=== PATIENT | female | born 1955 ===

== ENCOUNTER 2018-03-22 12:07 | Inpatient (IN) | payer MEDICAID ==
[~2018-03-22] VITALS: Ht 177.8 cm; Wt 79.9 kg
[2018-03-22] MEDS ORDERED: CALCIUM CARBONATE 500 MG (TUMS) TAB.CHEW PO PRN (12:45)
[2018-03-22] MEDS ORDERED: ALPRAZolam 0.25 MG (XANAX) TAB PO PRN (12:45)
[2018-03-22] MEDS ORDERED: POLYETHYLENE GLYCOL 17 GM (MIRALAX) PACK PO PRN (12:45)
[2018-03-22] MEDS ORDERED: SENNA W/DOCUSATE (SENOKOT S) TABLET PO PRN (12:45)
[2018-03-22] MEDS ORDERED: LOPERAMIDE 2 MG (IMODIUM) CAP PO PRN (12:45)
[2018-03-22] MEDS ORDERED: HYDROcodone/APAP 5 MG/325 MG (LORTAB) TAB PO PRN (12:45)
[2018-03-22] MEDS ORDERED: BISACODYL 10 MG SUPP (DULCOLAX) PR PRN (12:45)
[2018-03-22] MEDS ORDERED: diphenhydrAMINE 25 MG TAB (BENADRYL) PO PRN (12:45)
[2018-03-22] MEDS ORDERED: PRAV40TA2 PO (13:00)
[2018-03-22] MEDS ORDERED: POTA-51 PO (13:00)
[2018-03-22] MEDS ORDERED: FENT1PAT57 TD (13:00)
[2018-03-22] MEDS ORDERED: INSU100I14 SQ (13:00)
[2018-03-22] MEDS ORDERED: TICA90TA PO (13:00)
[2018-03-22] MEDS ORDERED: CARV6.25 PO (13:00)
[2018-03-22] MEDS ORDERED: PANT40TA3 PO (13:00)
[2018-03-22] MEDS ORDERED: ASPI-983 PO (13:00)
[2018-03-22] MEDS ORDERED: FURO80TA3 PO (13:00)
[2018-03-22] MEDS ORDERED: INSU100I29 SQ (13:00)
[2018-03-22] MEDS ORDERED: HYDR-3816 PO (13:00)
[2018-03-22] MEDS ORDERED: HYDR-3820 PO (13:33)
--- NOTE | 2018-03-22 14:10 | NUR ---
Pt admitted to room 229 with an admitting diagnosis of falls. S/P Lt THR, from [facility], [place], via w/c van accompanied by regional tanker truck driver. ROSALINO HOSKINS introduced to surroundings, call light, bed controls, phone, TV, temperature control, lights, meal times, smoking policy, visitor policy, side rail policy, bathrooms and showers. Patient Rights given to patient in the handbook. ROSALINO HOSKINS verbalizes understanding that [facility] is not responsible for the loss or damage to any personal effects or valuables that are kept in the patients posession during their hospitalization. The following Patient Care Plans were discussed with the pt: Discharge Planning, Self Care Deficit, Impaired Mobility, Potential for fall/injury. ROSALINO HOSKINS verbalizes understanding of Interdisciplinary Patient Education. Patient and/or family were informed about the Rapid Response Team and its purpose. Patient received Patient Rights Booklet, which includes Privacy Act Statement and Data Collection Information Summary. PT in to room immediately upon admission to [facility] pt.
--- NOTE | 2018-03-22 14:56 | Physical Therapy Evaluation ---
PT Evaluation-General Medical Diagnosis Admission Date Mar 22, 2018 at 14:10 Medical Diagnosis: left hip fx; post THR Onset Date: Mar 22, 2018 Therapy Diagnosis Therapy Diagnosis: weakness; abn gait Precautions Precautions/Isolations: Standard Precautions Weight Bear Status Right Lower Extremity: Right Full Weight Bearing Left Lower Extremity: Left Weight Bearing/Tolerated Referral Physician: Michelle Reason for Referral: Evaluation/Treatment Medical History Pertinent Medical History: CAD, DM, Heart Failure, HTN Additional Medical History [place] x 06 January 2018; renal cell carcinoma Current History Pt was walking outdoors and she reports her leg broke and she fell. She reports it was incredibly painful. She was taken by ambulance to [facility] ED and was then transferred to [facility]. Her hip was repaired with a THR Reviewed History: Yes Social History Home: Single Level (mobile home.) Current Living Status: Spouse Entry Into Home: Stairs With Railing (reports her is building a ramp.) PT Steps Into Home: 3 Prior/Core FIM Prior Level of Function Therapy Code Descriptions/Definitions Functional [place] Measure: 0=Not Assessed/NA 4=Minimal Assistance 1=Total Assistance 5=Supervision or Setup 2=Maximal Assistance 6=Modified [place] 3=Moderate Assistance 7=Complete [place] Therapy Quality Codes: 6 Independent with activity with or without an assistive device 5 Patient requires set up or clean up by helper. Patient completes activity by themselves 4 Supervision or touching assist (CGA). [place] provide cues , steadying assist 3 The helper provides less than half the effort to complete the activity 2 The helper provides more than half the effort to complete the activity 1 Dependent. The helper does all the effort to complete an activity 7 Patient refused to complete or attempt activity 9 The patient did not perform the activity before the current illness or injury 88 Not attempted due to Medical conditions or safety concerns Functional Abilities and Goals: Independent: Patient completed the activities by him/herself, with or without an assistive device, with no assistance from a helper. Needed Some Help: Patient needed partial assistance from another person to complete activities. Dependent: A helper completed the activities for the patient. Unknown: Not Applicable: Bed Mobility: 7 Transfers (B,C,W/C) (FIM): 7 Gait: 7 Stairs: 7 Indoor Mobility (Ambulation): Independent Stairs: Independent Prior Devices Use: None Pt has a FWW, RW, shower chair. PT Evaluation-Current Subjective Agreeable to PT. Reports she is tired. Pain Numeric Pain Scale: 4 Location: Left Location Body Site: Hip Pain Description: Ache (sore) Pt/Family Goals Her goal is to return home at a mod indep level Objective Patient Orientation: Person, Place, Time, Situation Problem Solving: Good ROM/Strength ROM Lower Extremities WFL; left hip precautions Strenght Lower Extremities right LE is grossly 5/5; left LE strength is grossly 4/5 Integumentary/Posture Integumentary refer to nursing notes. Bowel Incontinence: No Bladder Incontinence: No Posture symmetrical and upright. Neuromuscular (Tone, Coordination, Reflexes) WFL Sensory Vision: Wears Glasses Hearing: Functional Sensation Right Lower Extremit: Intact Sensation Left Lower Extremity: Intact Transfers Therapy Code Descriptions/Definitions Functional [place] Measure: 0=Not Assessed/NA 4=Minimal Assistance 1=Total Assistance 5=Supervision or Setup 2=Maximal Assistance 6=Modified [place] 3=Moderate Assistance 7=Complete [place] Therapy Quality Codes: 6 Independent with activity with or without an assistive device 5 Patient requires set up or clean up by helper. Patient completes activity by themselves 4 Supervision or touching assist (CGA). [place] provide cues , steadying assist 3 The helper provides less than half the effort to complete the activity 2 The helper provides more than half the effort to complete the activity 1 Dependent. The helper does all the effort to complete an activity 7 Patient refused to complete or attempt activity 9 The patient did not perform the activity before the current illness or injury 88 Not attempted due to Medical conditions or safety concerns Transfers (B, C, W/C) (FIM): 3 Scootin Roll Left to Right (QC): 4 Supine to/from Sit: 3 (asssit with both legs to get into bed) Sit to/from Stand: 4 Sit to Lying (QC): 3 Lying to Sitting/Side of Bed(Q: 3 Sit to Stand (QC): 4 Chair/Bkk-wt-Gdknl Xfer(QC): 4 Car Transfer (QC): 4 skilled cues for sequencing and safety. Gait Does the Patient Walk?: Yes Mode of Locomotion: Walk Anticipated Mode of Locomotion: Walk Gait (FIM): 2 Distance (FIM): 6=635-04 ft Walk 10 feet (QC): 4 (CGA for safety) Walk 50 ft with 2 Turns(QC): 4 Walk 150 ft (QC): 88 Walking 10ft/uneven surface-QC: 4 Gait Assistive Device: FWW Comments/Gait Description Decreased speed and foot clearance. Wheelchair Training Does the Pt Use a Wheelchair?: No Stairs Stairs (FIM): 2 #of Steps: 1 Level of Assist: 4 1 Step (curb) (QC): 4 4 Steps (QC): 88 Assistive Device: Walker 12 Steps (QC): 88 skilled cues for sequencing and segmentation. Balance Sitting Static: Good Sitting Dynamic: Good Standing Static: Fair Standing Dynamic: Fair Picking up an Object (QC): 88 (HIP PRECAUTIONS) Treatment Worked on functional sit to stand transfers with correct hand placement and technique. Gait x 40 ft with fWW with CGA with cues for safety. Assessment/Needs Pt presents post femur fx that has been repaired with a THR. She has decreased functional strength that impairs transfers, gait and functional safety and balacne. Joseequires assist with all mobiliyt and is unable to care for herself at home. She is a good ARU candidate to address her deficits and allow her to return home at a mod indep level. Rehab Potential: Good PT Short Term Goals Short Term Goals Time Frame: Mar 29, 2018 Transfers (B,C,W/C) (FIM): 5 Gait (FIM): 5 Distance (FIM): 3=150 ft Gait Assistive Device: FWW Stairs (FIM): 2 # of Steps: 4 PT Fdc Goals Fdc Goals PT Fdc Goals Time Frame: Apr 06, 2018 Transfers (B,C,W/C) (FIM): 6 Sit to Lying (QC): 6 Lying-Sitting on Side/Bed(QC): 6 Sit to Stand (QC): 6 Roll Left to Right (QC): 6 Chair/Tmg-nl-Xjvcg Xfer(QC): 6 Car Transfer (QC): 6 Does the Patient Walk: Yes Gait (FIM): 6 Walk 10 feet (QC): 6 Walk 10ft-Uneven Surface(QC): 6 Walk 50ft with 2 Turns (QC): 6 Walk 150 ft (QC): 6 Gait Assistive Device: FWW Does the Pt use WC or Scooter?: No Stairs (FIM): 5 (household) # of Steps: 4 1 Step (curb) (QC): 6 4 Steps (QC): 6 12 Steps (QC): 88 Picking up an Object (QC): 88 PT Plan Problem List Problem List: Activity Tolerance, Functional Strength, Safety, Balance, Gait, Transfer, Bed Mobility Treatment/Plan Treatment Plan: Continue Plan of Care Treatment Plan: Bed Mobility, Education, Functional Activity Gay, Functional Strength, Group Therapy, Gait, Safety, Therapeutic Exercise, Transfers Treatment Duration: Apr 06, 2018 Frequency: Modified Program (IRF) Estimated Hrs Per Day: 1.5 hours per day Patient and/or Family Agrees t: Yes Safety Risks/Education Patient Education: Transfer Techniques, Steps, Safety Issues Teaching Recipient: Patient Teaching Methods: Demonstration, Discussion Response to Teaching: Reinforcement Needed Time/GCodes Time In: 1415 Time Out: 1445 Total Billed Treatment Time: 30 Total Billed Treatment visit EVM 15 FA 15 ERIN BARRIOS PT Mar 22, 2018 14:55
[2018-03-22 15:00] VITALS: BP 122/85
--- NOTE | 2018-03-22 15:14 | NUR ---
UPDATED MED REC TO THE MEDICATIONS THE PATIENT WAS TAKING UPON ADMISSION TO [facility] USING THE DISCHARGE ORDERS WELL CONTACTING WENDY AND HER PCP OFFICE DR. PAULY WHITE IN [place]. NOTE THE FOLLOWING CHANGES WERE MADE WHEN THE PATIENT DISCHARGED TO [facility] THAT ARE NOT CURRENTLY REFLECTED ON THE HOME MED REC: START TAKING: FLEXERIL 10MG Q8H PRN LOVENOX 40MG SUBQ EVERY 24 HOURS THE LIST OF MEDICATIONS TO CONTINUE TAKING FROM [facility] STATED TO CONTINUE HYDROCODONE 7.5-325MG, HOWEVER PATIENT WAS TAKING 10-325MG AT HOME, I UPDATED THE MED REC WITH THE HOME MED DOSE. WENDY IN [place] FILLED: 03-12-18 BRILINTA 90MG BID #60 02-24-18 LEVEMIR 80 UNITS BID (TAKES 50 AM IF BS>200 AND 50 PM IF BS>225) 02-24-18 FENTANYL 25MCG PATCH Q3 DAYS #10 02-24-18 HYDROCODONE 10-325MG Q6H PRN #120 02-15-18 PANTOPRAZOLE 40MG BID #60 02-04-18 CARVEDILOL 6.25MG BID #60 (PREVIOUSLY FILLED 12-29-17) 02-04-18 FUROSEMIDE 80MG DAILY #30 02-04-18 POTASSIUM 20MEQ DAILY #30 THEY DID NOT HAVE RECORD OF PRAVASTATIN OR NOVOLOG. PATIENT STATES SHE ONLY TAKES HER NOVOLOG IF HER BS IS GREATER THAN 300. SHE STATES SHE IS SUPPOSED TO TAKE PRAVASTATIN 40MG HOWEVER IT DID NOT GET REFILLED ONE TIME AND SHE HAS BEEN OFF FOR A BIT BUT SINCE SHE HAS BEEN IN THE HOSPITAL THEY HAVE BEEN GIVING IT TO HER AND SHE WILL MAKE SURE SHE GETS A SCRIPT FILLED AND CONTINUES TAKING IT WHEN SHE GETS HOME. THE PRAVASTATIN WAS ON THE LIST FROM DR. WHITE'S OFFICE. I HAD A LIST OF MEDICATIONS FAXED OVER FROM DR. WHITE'S OFFICE WELL. IT INCLUDED THE FOLLOWING MEDICATIONS THAT SHE STATES SHE IS NO LONGER TAKING: LOSARTAN 25MG DAILY (STOPPED BECAUSE IT DROPPED HER BP SO LOW SHE PASSED OUT) OMEPRAZOLE 40MG DAILY (TAKES THE PROTONIX BID NOW AND IT IS CONTROLLING HER HB FINE) ZOFRAN ODT 4MG PRN
--- NOTE | 2018-03-22 15:41 | ST Cognitive Linguistic Eval ---
Speech Evaluation-General Medical Diagnosis left hip fx; post THR Onset Date: Mar 22, 2018 Therapy Diagnosis Therapy Diagnosis: Cognitive-communication Precautions Precautions/Isolations: Standard Precautions Medical History Pertinent Medical History: CAD, DM, Heart Failure, HTN Reviewed History: Yes Social History Current Living Status: Spouse Speech PLF-Current Status Prior Level of Function Patient lived at home with her and was independent with most of her needs. Subjective Patient was very pleasant and a good historian of her medical status. Language Eval: Auditory Comprehends Simple Yes/No Ques: Functional Indent/Objects Multiple [place]: Functional Ident/Pics in [place]: Functional Follows 1-Step Commands: Functional Follows Complex Directions: Functional Follows General Conversations: Functional Language Eval: Verbal Language Completes Spontaneous Greeting: Functional Produces Auto, Serial Info: Functional Imitates Simple Words/Phrases: Functional Word Finding: Functional Requests Basic Needs: Functional States Basic Personal Info: Functional Expresses Complex Ideas: Functional Objective Cognitive Domain Attention: WNL Memory: WNL Problem Solving: Functional Executive Functions: [facility] Objective Formal/Standardized Tests [facility] Cognitive/Communication Results Memory: Immediate 3/3, Delayed 3/3, Orientation: 5/5, Problem Solving: Simple 5/ 5, Complex 5/5 Oral Motor/Speech Production Within Functional Limits Impression Patient is a pleasant 62 year old female with a complicated medical history. She was able to complete evaluation tasks for cognitive-communication without difficulty. Communication/Social Cognition Comprehension: 7 Expression: 7 Social Interaction: 7 Problem Solvin Memory: 7 Speech Patient Assess Expression of Ideas/Wants: Expression (4) Understanding Verbal Content: Understands (4) Brief Interview-Mental Status: Yes Repetition of Three Words: Three (3) Temporal Orientation: Year: Correct (3) Temporal Orientation: Month: Accurate within 5 days(2) Temporal Orientation: Day: Correct (1) Recall : Wear to say "Sock": Yes, no cue required (2) Recall : Color: Yes, no cue required (2) Recall : Bed: Yes, no cue required (2) Memory/Recall Ability: Current season, That he or she is in a hsp/hsp unit Speech-Plan Patient/Family Goals Patient/Family Goals: Patient plans to return home with her post rehab. Treatment Plan Speech Therapy Treatment Plan: Discontinue ST Patient is not recommended for skilled ST at this time. Treatment Duration: Mar 22, 2018 Frequency: 1 time per week Estimated Hrs Per Day: .25 hour per day Rehab Potential: Good Barriers to Learning: Patient has complex medical status Pt/Family Agrees to Plan: Yes Safety Risks/Education Teaching Recipient: Patient Teaching Methods: Discussion Response to Teaching: Verbalize Understanding Education Topics Provided: Safety within her room. Time Speech Therapy Time In: 14:45 Speech Therapy Time Out: 15:00 Total Billed Time: 15 Billed Treatment Time 1, SPSNDBOSTON Barajas Mar 22, 2018 15:41
[2018-03-22] MEDS ORDERED: inSUlin ASPART (NovoLOG) 1 UNIT/0.01 ML (CHARGE PER UNIT) SC SCH (16:00)
--- NOTE | 2018-03-22 16:05 | Occupational Therapy Eval ---
OT Evaluation-General/PLF Medical Diagnosis Admission Date Mar 22, 2018 at 14:10 Medical Diagnosis: left hip fx; post THR Onset Date: Mar 22, 2018 Therapy Diagnosis Therapy Diagnosis: Weakness Height/Weight Height (Feet): 5 Height (Inches): 10.00 Weight (Pounds): 173 Weight (Ounces): 2.0 Precautions Precautions/Isolations: Fall Prevention, Standard Precautions, Pressure Ulcer Weight Bear Status Weight Bearing Restriction: Full Weight Bearing Full weight bearing Referral Physician: Michelle Medical History Pertinent Medical History: CAD, DM, Heart Failure, HTN Additional Medical History PMHx DM II, CAD, HTN, CHF, Lives with her at home. Current History 62 yrs old w/f lives at home with her , fell in the front yard & sustained Lf hip injury, unable to got up. Family brought her to [facility] where she was undergone Left hip Replacement surgery . Pt was Independent in all ADLs & mobility without AD. Reviewed History: No Social History Home: Single Level Current Living Status: Spouse Entry Into Home: Stairs With Railing Steps Into Home: 3 ADL-Prior Level of Function Therapy Code Descriptions/Definitions Functional [place] Measure: 0=Not Assessed/NA 4=Minimal Assistance 1=Total Assistance 5=Supervision or Setup 2=Maximal Assistance 6=Modified [place] 3=Moderate Assistance 7=Complete [place] Therapy Quality Codes: 6 Independent with activity with or without an assistive device 5 Patient requires set up or clean up by helper. Patient completes activity by themselves 4 Supervision or touching assist (CGA). [place] provide cues , steadying assist 3 The helper provides less than half the effort to complete the activity 2 The helper provides more than half the effort to complete the activity 1 Dependent. The helper does all the effort to complete an activity 7 Patient refused to complete or attempt activity 9 The patient did not perform the activity before the current illness or injury 88 Not attempted due to Medical conditions or safety concerns Functional Abilities and Goals: Independent: Patient completed the activities by him/herself, with or without an assistive device, with no assistance from a helper. Needed Some Help: Patient needed partial assistance from another person to complete activities. Dependent: A helper completed the activities for the patient. Unknown: Not Applicable: ADL PLOF Comments Pt was living at home with her & was Independent in all self care tasks & ambulation without AD. Self Care: Independent Functional Cognition: Independent DME/Equipment: Grab Bars DME/Equipment Comments None at home. Occupation: Retired Drive Self: Yes OT Current Status Subjective Pt was sitting in chair, On asking how are you doing Simi, pt stated, " I am doing great." Pain Numeric Pain Scale: 5-Moderate Pain Location: Left Location Body Site: Hip Pain Description: Ache Mental Status/Objective Patient Orientation: Person, Place, Time Current Glasses/Contacts: No Hearing Aids: No Upper Extremity ROM WFL Upper Extremity Coordination Intact Upper Extremity Sensation Intact Upper Extremity Strength MS in BUE 4/5 ADL-Treatment ADL-Current Pt requires SBA in Sit to stand with w/w , Min A Supine to sit in bed & Independent in sit to supine, Pt func Ambulate 50 feet with FWW having gait belt , SBA in UB dressing, Toilet transfers, getting in & out of bed Min -SBA. , Completed 25 reps x 2 lb wts BUE & 20 reps with Red theraband in all planes of motion . Eating (FIM): 7 Eating (QC): 6 Grooming (FIM): 5 Oral Hygiene (QC): 5 Bathing (FIM): 0 Shower/Bathe Self (QC): 0 Upper Body Dressing (FIM): 5 Upper Body Dressing (QC): 5 Lower Body Dressing (FIM): 0 Lower Body Dressing (QC): 3 On/Off Footwear (QC): 5 Toileting (FIM): 6 Toileting Hygiene (QC): 6 Transfers (B, C, W/C) (FIM): 5 Toilet/Commode Transfer (FIM): 5 Toilet Transfer (QC): 5 Tub Transfer (FIM): 0 Shower Transfer (FIM): 5 Education OT Patient Education: Correct positioning, Modified ADL techniques, Reviewed precautions, Safety issues, Transfer techniques Teaching Recipient: Patient Teaching Methods: Demonstration, Discussion Response to Teaching: Verbalize Understanding, Return Demonstration OT Short Term Goals Short Term Goals Time Frame: Apr 05, 2018 Eating(FIM): 6 Grooming(FIM): 6 Bathing(FIM): 5 Bathing Location: L Arm, R Arm, L Upper Leg, R Upper Leg, L Lower Leg ( including foot), R Lower Leg (including foot), Chest, Abdomen, Buttocks, Perineal Area Upper Body Dressing(FIM): 7 Lower Body Dressing(FIM): 6 Toileting(FIM): 6 Transfers (B,C,W/C) (FIM): 7 Toilet/Commode Transfer(FIM): 7 Tub Transfer(FIM): 2 Shower Transfer(FIM): 7 Additional Short Term Goals: 1-Demonstrate ADL Tasks, 2-Verbalize Understanding , 3-ImproveStrength/Gay 1=Demonstrate adherence to instructed precautions during ADL tasks. 2=Patient will verbalize/demonstrate understanding of assistive devices/ modifications for ADL. 3=Patient will improve strength/tolerance for activity to enable patient to perform ADL's. OT Mcfp Goals Mcfp Goals Time Frame: Apr 19, 2018 Eating (FIM): 7 Eating (QC): 6 Groomin Oral Hygiene (QC): 6 Bathing(FIM): 6 Bathing Location: L Arm, R Arm, L Upper Leg, R Upper Leg, L Lower Leg ( including foot), R Lower Leg (including foot), Chest, Abdomen, Buttocks, Perineal Area Shower/Bathe Self (QC): 6 Upper Body Dressing(FIM): 7 Upper Body Dressing (QC): 6 Lower Body Dressing(FIM): 6 Lower Body Dressing (QC): 6 On/Off Footwear (QC): 6 Toileting(FIM): 6 Toileting Hygiene (QC): 6 Transfers (B,C,W/C) (FIM): 6 Toilet/Commode Transfer(FIM): 6 Toilet/Commode Transfer (QC): 6 Tub Transfer(FIM): 6 Shower Transfer(FIM): 6 Additional Goals: 1-Demonstrate ADL Tasks, 2-Verbalize Understanding, 3- ImproveStrength/Gay 1=Demonstrate adherence to instructed precautions during ADL tasks. 2=Patient will verbalize/demonstrate understanding of assistive devices/ modifications for ADL. 3=Patient will improve strength/tolerance for activity to enable patient to perform ADL's. OT Education/Plan Discharge Recommendations Plan/Recommendations: Continue POC Therapy D/C Recommendations: Home w/ Family Support, Home Independently, Occupational Therapy Home Care Equpiment Recommendations-D/C: Toilet Riser with Rails, Bath Chair, Extended Shower Sprayer, Last Pattern Grader, Hip Kit, Sock Aide, Dressing Stick, Long Shoe [place] Barriers to Progress Fragile bones, Pt has Metastatic CA of bones . Treatment Plan/Plan of Care Treatment,Training & Education: Yes Patient would benefit from OT for education, treatment and training to promote independence in ADL's, mobility, safety and/or upper extremity function for ADL' s. Plan of Care: ADL Retraining, Caregiver Training, Functional Mobility, Group Exercise/Act as Ind, UE Funct Exercise/Act, UE Neuromus Re-Ed/Coord Treatment Duration: Apr 19, 2018 Frequency: At least 5 of 7 days/Wk (IRF) Estimated Hrs Per Day: 1.5 hours per day Agreement: Yes Rehab Potential: Good Time/GCodes Start Time: 15:05 Stop Time: 15:40 Total Time Billed (hr/min): 35 Billed Treatment Time 1, EVM20, Ex 15 Total 35 Minutes JAN ESCALONA OT Mar 22, 2018 16:05
--- NOTE | 2018-03-22 16:12 | Physical Therapy Daily Note ---
PT Daily Note-Current Subjective Pt was up in recliner and agreed to PT. She reports that she had PT this morning at the facility she came from. Pt also reports that she had just received a pain pill. Pain Numeric Pain Scale: 3 Location: Left Location Body Site: Hip Mental Status Patient Orientation: Person, Place, Situation, Normal For Age Transfers Therapy Code Descriptions/Definitions Functional [place] Measure: 0=Not Assessed/NA 4=Minimal Assistance 1=Total Assistance 5=Supervision or Setup 2=Maximal Assistance 6=Modified [place] 3=Moderate Assistance 7=Complete [place] Therapy Quality Codes: 6 Independent with activity with or without an assistive device 5 Patient requires set up or clean up by helper. Patient completes activity by themselves 4 Supervision or touching assist (CGA). [place] provide cues , steadying assist 3 The helper provides less than half the effort to complete the activity 2 The helper provides more than half the effort to complete the activity 1 Dependent. The helper does all the effort to complete an activity 7 Patient refused to complete or attempt activity 9 The patient did not perform the activity before the current illness or injury 88 Not attempted due to Medical conditions or safety concerns Transfers (B, C, W/C) (FIM): 4 Sit to/from Stand: 4 Weight Bearing Right Lower Extremity: Right Full Weight Bearing Left Lower Extremity: Left Weight Bearing/Tolerated Gait Training Does the Patient Walk?: Yes Gait (FIM): 2 Distance (FIM): 3=150 ft Distance: 120'x2 Gait Level of Assist: 5 Gait Persons Needed: 1 Gait Assistive Device: FWW antalgic gait, decreased stance time on left leg Exercises Seated Therapy Exercises: Ankle pumps, Long arc quads, Hip flexion (maintain hip precautions), Hip abd/add Seated Reps: 15 Assessment Current Status: Good Progress Pt was able to sit<>stand from recliner to FWW with CGA. Pt amb 120' with FWW and SBA. Pt was able to perform LE seated ex of 15 reps. She was able to maintain hip precautions through tx session. Pt is now in recliner with all needs met. PT Plan Problem List Problem List: Activity Tolerance, Functional Strength, Safety, Balance, Gait, Transfer, Bed Mobility, ROM Treatment/Plan Treatment Plan: Continue Plan of Care Treatment Plan: Bed Mobility, Education, Functional Activity Gay, Functional Strength, Group Therapy, Gait, Safety, Therapeutic Exercise, Transfers Treatment Duration: Apr 06, 2018 Frequency: Modified Program (IRF) Estimated Hrs Per Day: 1.5 hours per day Patient and/or Family Agrees t: Yes Safety Risks/Education Patient Education: Gait Training, Transfer Techniques, Reviewed Precautions, Correct Positioning, Safety Issues Teaching Recipient: Patient Teaching Methods: Demonstration, Discussion Response to Teaching: Reinforcement Needed Time/GCodes Time In: 1540 Time Out: 1605 Total Billed Treatment Time: 25 Total Billed Treatment 1 visit GT x1 15 min Ex x1 10 min FRANCIS CHACON PT Mar 22, 2018 16:12
[2018-03-22] MEDS ORDERED: fentaNYL PATCH 25 MCG (DURAGESIC) TD SCH (16:45)
[2018-03-22] MEDS ORDERED: inSUlin ASPART (NovoLOG) 1 UNIT/0.01 ML (CHARGE PER UNIT) SQ PRN (16:45)
[2018-03-22] MEDS ORDERED: KCL 20 MEQ TAB (K-DUR) PO PRN (16:45)
[2018-03-22] MEDS ORDERED: FUROSEMIDE 40 MG (LASIX) TAB PO PRN (16:56)
[2018-03-22] MEDS ORDERED: SENNA W/DOCUSATE (SENOKOT S) TABLET PO ONE (17:00)
--- NOTE | 2018-03-22 17:04 | PM&R H&P / Post Admit Assess ---
History of Present Illness HPI/Chief Complaint CC: Left hip fracture recovery HPI: This is a 62-year-old white female with a known history of renal cell carcinoma managed by Dr. Herb Wilcox oncology at [facility] whose primary care provider is Dr. Evelio Beyer who presents to inpatient rehabilitation for aggressive therapy following a left hip fracture. Apparently she sustained a fall suffered a left hip fracture and had an uncomplicated repair at [facility]. She had recent coronary artery stent placement maintained on Brilinta and patient was monitored closely for any recurrence of acute coronary syndrome. I have reviewed and restarted all of her home medication including Lovenox for DVT prophylaxis of 40 mg subcutaneous daily. Patient reports pain is controlled currently and is ready to start her therapies. Source: patient, RN/MD, old records Exam Limitations: no limitations Date Seen 03/22/18 Time Seen by a Provider: 17:00 Attending Physician Michelle Bonilla DO PCP No,Local Physician Referring Physician Date of Admission Mar 22, 2018 at 14:10 Home Medications & Allergies Home Medications Reviewed patient Home Medication Reconciliation performed by pharmacy medication reconciliations failure analysis technician and/or nursing. Patients Allergies have been reviewed. 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[place]) Smoking Status: Former Smoker Recent Foreign Travel: No Contact w/other who traveled: No Past Medical History Surgeries: Cardiac, Orthopedic Cardiac: Chronic Edema/Swelling, Coronary Artery Disease, Heart Attack, High Cholesterol, Hypertension Gastrointestinal: Gastroesophageal Reflux, Gastrointestinal Bleed, Chronic Constipation Musculoskeletal: Arthritis, Chronic Back Pain Endocrine: Diabetes, Insulin dep Cancer: Kidney Did You Recieve Any Treatments: Yes What Type of Treatment Did You: Chemotherapy, Radiation Family History Diabetes Review of Systems Constitutional: see HPI, weakness EENTM: no symptoms reported Respiratory: no symptoms reported Cardiovascular: no symptoms reported Gastrointestinal: constipation Genitourinary: no symptoms reported Musculoskeletal: joint pain Skin: no symptoms reported Psychiatric/Neurological: No Symptoms Reported All Other Systems Reviewed Negative Unless Noted: Yes Physical Exam Physical Exam Vital Signs Vital Signs - First Documented 03/22/18 15:00 Temp 97.0 Pulse 70 Resp 18 B/P (MAP) 122/85 (97) Pulse Ox 95 O2 Delivery Room Air Capillary Refill : Height, Weight, BMI Height: 5'10.00" Weight: 173lbs. 2.0oz. 78.479117ov; 24.8 BMI Method: General Appearance: No Apparent Distress, WD/WN, Chronically ill, Thin Eyes: Bilateral Eye Normal Inspection, Bilateral Eye PERRL HEENT: PERRL/EOMI, Normal ENT Inspection, Pharynx Normal Neck: Full Range of Motion, Normal Inspection, Non Tender, Supple, Carotid Bruit Respiratory: Chest Non Tender, Lungs Clear, Normal Breath Sounds, No Accessory Muscle Use, No Respiratory Distress Cardiovascular: Regular Rate, Rhythm, No Edema, No Gallop, No JVD, No Murmur, Normal Peripheral Pulses Gastrointestinal: Normal Bowel Sounds, No Organomegaly, No Pulsatile Mass, Non Tender, Soft Back: Normal Inspection, No CVA Tenderness, No Vertebral Tenderness Extremity: Normal Capillary Refill, Normal Inspection, Normal Range of Motion ( except left leg), Non Tender, No Calf Tenderness, No Pedal Edema Neurologic/Psychiatric: Alert, Oriented x3, No Motor/Sensory Deficits, Normal Mood/Affect Skin: Normal Color, Warm/Dry Lymphatic: No Adenopathy Results Results/Procedures Labs Patient resulted labs reviewed. Assessment/Plan Admission Diagnosis Assessment: Debility following left hip fracture Renal cell carcinoma with metastases to the bone and lung Diabetes mellitus insulin-dependent CAD with recent stent placement on Brilinta managed by Dr. Keith at [facility] Chronic pain on fentanyl patch Acute constipation Chronic lower extremity edema Hyperlipidemia Stomach ulcers 2 weeks ago requiring surgical intervention Anemia Plan: Start aggressive therapy Pain control Home meds Cardiology consult Maintain Brilinta Lovenox for DVT prophylaxis Constipation treatment Admission Status: Inpatient Order (span 2 midnights) Reason for Inpatient Admission: IRF Diagnosis/Problems Diagnosis/Problems (1) Hip fracture requiring operative repair Status: Acute Qualifiers: Encounter type: subsequent encounter Fracture type: closed Laterality: left Fracture healing: with routine healing Qualified Codes: S72.002D - Fracture of unspecified part of neck of left femur, subsequent encounter for closed fracture with routine healing (2) Metastatic renal cell carcinoma to bone Status: Chronic (3) CAD (coronary artery disease) Status: Chronic Qualifiers: Coronary Disease-Associated Artery/Lesion type: [place] artery [place] vs. transplanted heart: [place] heart Associated angina: without angina Qualified Codes: I25.10 - Atherosclerotic heart disease of [place] coronary artery without angina pectoris (4) Myocardial infarct, old Status: Chronic (5) Stomach ulcer Status: Chronic Qualifiers: Gastric ulcer chronicity: unspecified ulcer chronicity Gastric ulcer complication status: unspecified whether hemorrhage or perforation present Qualified Codes: K25.9 - Gastric ulcer, unspecified as acute or chronic, without hemorrhage or perforation (6) DVT prophylaxis Status: Acute (7) Diabetes mellitus Status: Chronic Qualifiers: Diabetes mellitus type: type 2 Diabetes mellitus termite exterminator insulin use: with termite exterminator use Diabetes mellitus complication status: with circulatory complication Diabetes mellitus complication detail: with other circulatory complications Qualified Codes: E11.59 - Type 2 diabetes mellitus with other circulatory complications; Z79.4 - terminal manager (current) use of insulin (8) Chronic pain Status: Chronic Qualifiers: Chronic pain type: due to neoplasm Qualified Codes: G89.3 - Neoplasm related pain (acute) (chronic) (9) Edema Status: Chronic Qualifiers: Edema type: localized Qualified Codes: R60.0 - Localized edema (10) GERD (gastroesophageal reflux disease) Status: Chronic Qualifiers: Esophagitis presence: without esophagitis Qualified Codes: K21.9 - Gastro- esophageal reflux disease without esophagitis (11) Closed left hip fracture Status: Acute Qualifiers: Encounter type: subsequent encounter Fracture healing: with routine healing Qualified Codes: S72.002D - Fracture of unspecified part of neck of left femur, subsequent encounter for closed fracture with routine healing Post Admission Physician Asses Date seen by provider: Mar 22, 2018 Time seen by provider: 17:00 Admisison Dx: (1) Closed left hip fracture Status: Acute The preadmission screen agrees with the post admission assessment that the patient is a good candidate for inpatient rehabilitation. The patient will have a comprehensive program of inpatient rehabilitation with a goal of maximizing level of functional independence prior to discharge home with family. The patient will have PT/OT ninety minutes per day, each discipline, five days a week for gait, strengthening, conditioning, balance, ADLs, any patient/family/caregiver training as necessary. Speech therapy to do cognitive assessment and treat as indicated. Rehabilitation nursing to assist with bowel, bladder, skin, wound care, medication administration, pain management. Trackless Trolley Driver to assist with discharge planning, community reentry. SCD's for DVT prophylaxis. She appears to be well motivated to participate in three hours of therapy a day. She should be able to tolerate three hours of therapy a day from a medical standpoint. She should benefit from the three hours of therapy a day. She has a reasonable discharge plan, reasonable discharge rehabilitation goals and a supportive family. She has various comorbidities that need to be closely monitored with medications and treatments adjusted on a daily basis as needed. These include: See list above Barriers to discharge for this patient who had been independent prior to this are for her to be modified independent to supervision for ADLs and mobility skills prior to discharge home with [family], so as to lessen the burden of the caregivers. Risks for this patient include: 1. Fall 2. Fracture 3. DVT 4. Pulmonary embolism 5. Wound infection 6. Skin breakdown 7. Contractures 8. Poorly controlled pain 9. Urinary retention 10. UTI 11. Respiratory infection 12. Aspiration Estimated Length of Stay: 7-10 days Prognosis: Rehab prognosis appears good for goal of discharge home with family modified independent to supervision for ADLs and mobility skills. Date Identified: Mar 22, 2018 Time Identified: 17:00 Action Plan to Resolve CSMI: Severe postop constipation in need of resolution General: Alert, Oriented X3, Cooperative, No Acute Distress HEENT: Atraumatic, PERRLA Neck: Supple, No JVD, No Thyromegaly, +2 Carotid Pulse No Bruit, No LAD Lungs: Clear to Auscultation, Normal Air Movement Heart: Regular Rate, Normal S1, Normal S2, No Murmurs Abdomen: Normal Bowel Sounds, Soft, No Tenderness, No Hepatosplenomegaly, No Masses Extremities: No Clubbing, No Cyanosis, No Edema, Normal Pulses, No Tenderness/ Swelling Skin: No Rashes, No Breakdown, No Significant Lesion Neuro: Normal Speech, Normal Tone, Sensation Intact, Cranial Nerves 3-12 NL, Reflexes 2+, Other (Decreased range of motion left leg) Psych/Mental Status: Mental Status NL, Mood NL MICHELLE BONILLA DO Mar 22, 2018 17:04
[2018-03-22] MEDS: ENOXAPARIN 40 MG/0.4 ML (LOVENOX) SYR SC SCH (17:08)
--- NOTE | 2018-03-22 17:09 | NUR ---
Fentanyl patch not due to be changed today, was placed on 03/20. Pt rec'd Lovenox prior to discharge from [facility]. Pharmacy notified.
[2018-03-22] MEDS: PANTOPRAZOLE 40 MG (PROTONIX) TAB PO SCH (17:50)
[2018-03-22] MEDS: HYDROcodone/APAP 10 MG/325 MG (LORTAB) TAB PO PRN (18:23)
[2018-03-22] MEDS: SENNA W/DOCUSATE (SENOKOT S) TABLET PO SCH ×2 (18:59→20:51)
[2018-03-22] MEDS: POLYETHYLENE GLYCOL 17 GM (MIRALAX) PACK PO SCH ×2 (18:59→20:50)
[2018-03-22 19:00] VITALS: BP 104/63
[2018-03-22] MEDS: CYCLOBENZAPRINE 10 MG (FLEXERIL) TAB PO PRN (19:58)
[2018-03-22] MEDS: inSUlin DETERMIR 1 UNIT/0.01 ML (LEVEMIR) CHARGE PER UNIT SQ SCH (20:50)
[2018-03-22] MEDS: TICAGRELOR 90 MG TABLET (BRILINTA) PO SCH (20:50)
[2018-03-22] MEDS: CARVEDILOL 6.25 MG (COREG) TAB PO SCH (20:50)
[2018-03-22] MEDS: SIMvastatin 20 MG (ZOCOR) TAB PO SCH (20:50)
[2018-03-23 05:37] VITALS: BP 111/61
[2018-03-23 06:07] LABS: BASOPHILS % (AUTO) 0 % (0-10); EOSINOPHILS # (AUTO) 0.7 10^3/uL (0.0-0.3); EOSINOPHILS % (AUTO) 10 % (0-10); HEMATOCRIT 33 % (35-52); HEMOGLOBIN 10.8 G/DL (11.5-16.0); LYMPHOCYTES # (AUTO) 1.4 X 10^3 (1.0-4.0); LYMPHOCYTES % (AUTO) 20 % (12-44); MEAN CORPUSCULAR HEMOGLOBIN 29 PG (25-34); MEAN CORPUSCULAR HGB CONC 32 G/DL (32-36); MEAN CORPUSCULAR VOLUME 88 FL (80-99); MONOCYTES % (AUTO) 14 % (0-12); NEUTROPHILS # (AUTO) 4.2 X 10^3 (1.8-7.8); NEUTROPHILS % (AUTO) 57 % (42-75); PLATELET COUNT 291 10^3/uL (130-400); WHITE BLOOD COUNT 7.3 10^3/uL (4.3-11.0)
[2018-03-23 06:31] LABS: ALANINE AMINOTRANSFERASE < 6 U/L (0-55); ALBUMIN 3.3 GM/DL (3.2-4.5); ALKALINE PHOSPHATASE 73 U/L (40-136); BILIRUBIN,TOTAL 0.4 MG/DL (0.1-1.0); BUN/CREATININE RATIO 15; CALCIUM 9.4 MG/DL (8.5-10.1); CARBON DIOXIDE 26 MMOL/L (21-32); CHLORIDE 101 MMOL/L (98-107); CREATININE SERUM 1.07 MG/DL (0.60-1.30); GFR ESTIMATED 52; GLUCOSE 84 MG/DL (70-105); POTASSIUM 3.9 MMOL/L (3.6-5.0); SODIUM 137 MMOL/L (135-145); TOTAL PROTEIN 6.9 GM/DL (6.4-8.2)
[2018-03-23] MEDS: ONDANSETRON 4 MG (ZOFRAN) ORAL DISSOLVE TAB PO PRN ×2 (07:19→21:30)
[2018-03-23 08:28] VITALS: BP 112/70
[2018-03-23] MEDS: PANTOPRAZOLE 40 MG (PROTONIX) TAB PO SCH ×2 (08:32→16:59)
[2018-03-23] MEDS: inSUlin DETERMIR 1 UNIT/0.01 ML (LEVEMIR) CHARGE PER UNIT SQ SCH ×2 (08:33→21:20)
--- NOTE | 2018-03-23 08:33 | NUR ---
Pt refused Levemir Insulin for "I'm afraid it'll drop" w being nauseated, & don't think I'm going to eat anything for awhile". Notified of B/S's this AM, pt reports that nausea has improved since taking Zofran, vomited coffee after drinking it. Pt states that she has been having n/v while at [facility] off & on. Dr. Granados notified.
[2018-03-23] MEDS: FENTANYL PATCH REMOVAL TP SCH (08:51)
[2018-03-23] MEDS: fentaNYL PATCH 25 MCG (DURAGESIC) TD SCH (08:51)
--- NOTE | 2018-03-23 09:05 | PM&R Progress Note ---
Subjective HPI/CC On Admission Date Seen by Provider: Mar 23, 2018 Time Seen by Provider: 08:00 CC: Left hip fracture recovery HPI: This is a 62-year-old white female with a known history of renal cell carcinoma managed by Dr. Herb Wilcox oncology at [facility] whose primary care provider is Dr. Evelio barrow [place] who presents to inpatient rehabilitation for aggressive therapy following a left hip fracture. Apparently she sustained a fall suffered a left hip fracture and had an uncomplicated repair at [facility]. She had recent coronary artery stent placement maintained on Brilinta and patient was monitored closely for any recurrence of acute coronary syndrome. I have reviewed and restarted all of her home medication including Lovenox for DVT prophylaxis of 40 mg subcutaneous daily. Patient reports pain is controlled currently and is ready to start her therapies. Subjective/Events-last exam Nausea present Needs SSE due to constipation Passing flatus Pain is managed Sugars are ok but will DC am Levemir since too low this morning and refused it Labs reviewed Review of Systems General: Fatigue Gastrointestinal: Nausea, Constipation Objective Exam Vital Signs Vital Signs Date Time Temp Pulse Resp B/P (MAP) Pulse Ox O2 Delivery O2 Flow Rate FiO2 03/23/18 08:28 97.4 79 20 112/70 (84) 99 Room Air Capillary Refill : General Appearance: No Apparent Distress, WD/WN, Chronically ill Respiratory: Chest Non Tender, Lungs Clear, Normal Breath Sounds, No Accessory Muscle Use, No Respiratory Distress Cardiovascular: Regular Rate, Rhythm, No Edema, No Gallop, No JVD, No Murmur, Normal Peripheral Pulses Gastrointestinal: Normal Bowel Sounds, No Organomegaly, No Pulsatile Mass, Non Tender, Soft Neurologic/Psychiatric: Alert, Oriented x3, No Motor/Sensory Deficits, Normal Mood/Affect Skin: Normal Color, Warm/Dry Results/Procedures Lab Laboratory Tests 03/23/18 05:50 Patient resulted labs reviewed. Assessment/Plan Assessment and Plan Assess & Plan/Chief Complaint Assessment: Debility following left hip fracture Renal cell carcinoma with metastases to the bone and lung Diabetes mellitus insulin-dependent CAD with recent stent placement on Brilinta managed by Dr. Keith at [facility] Chronic pain on fentanyl patch Acute constipation needs SSE Chronic lower extremity edema Hyperlipidemia Stomach ulcers 2 weeks ago requiring surgical intervention Anemia Plan: Start aggressive therapy Pain control Home meds Cardiology consult Maintain Brilinta Lovenox for DVT prophylaxis Constipation treatment with SSE today Diagnosis/Problems Diagnosis/Problems (1) Closed left hip fracture Status: Acute Qualifiers: Encounter type: subsequent encounter Fracture healing: with routine healing Qualified Codes: S72.002D - Fracture of unspecified part of neck of left femur, subsequent encounter for closed fracture with routine healing Clinical Quality Measures DVT/VTE Risk/Contraindication: Risk Factor Score Per Nursin RFS Level Per Nursing on Admit: 2=Moderate MICHELLE BONILLA DO Mar 23, 2018 09:05
[2018-03-23] MEDS: TICAGRELOR 90 MG TABLET (BRILINTA) PO SCH ×2 (09:59→21:19)
[2018-03-23] MEDS: POLYETHYLENE GLYCOL 17 GM (MIRALAX) PACK PO SCH ×2 (09:59→21:20)
[2018-03-23] MEDS: CARVEDILOL 6.25 MG (COREG) TAB PO SCH ×2 (09:59→21:19)
[2018-03-23] MEDS: ASPIRIN E.C. 81 MG (ECOTRIN) TAB PO SCH (09:59)
[2018-03-23] MEDS: SENNA W/DOCUSATE (SENOKOT S) TABLET PO SCH ×2 (09:59→21:19)
--- NOTE | 2018-03-23 11:29 | Occupational Ther Daily Note ---
OT Current Status-Daily Note Subjective BARRIENTOS entered pt's room, pt stated "I am sorry but I won't be able to do therapy. I have been vomiting since 0500. I haven't had a bowel movement in 2 weeks." A suppository had been given to pt prior to OT sessions and had not begun to work. Reported to PT mechanical supervisor. Mental Status/Objective Patient Orientation: Person, Place, Time, Situation Therapy Code Descriptions/Definitions Functional [place] Measure: 0=Not Assessed/NA 4=Minimal Assistance 1=Total Assistance 5=Supervision or Setup 2=Maximal Assistance 6=Modified [place] 3=Moderate Assistance 7=Complete [place] ADL-Treatment Pt had urge to use bathroom stating "I don't think I can make it to the toilet. " BSC place by bed. Pt able to go from supine to sitting EOB with HOB slightly elevated and used bedrails. SPT from EOB to BSC with close SBA. Pt able to manipulate clothing with SBA. Pt requested to sit on BSC for awhile to let gravity assist, 5 BM hard round, reported to nrsg. Pt able to cleanse self while sitting on BSC. Offered pt shower, declined at this time. SPT to bed, close SBA. Min A with L LE to lift into bed and position. Pt made comfortable in bed. Abdominal and hip pain throughout session, pt stated she had not had pain meds and was trying not to take them. Pt completed grooming while lying in bed. BARRIENTOS gathered supplies and pt completed grooming by self. AE magazine given to pt as resource for home equipment. Pt stated that she had a garden tub at home and her is going to redo the bathroom and get rid of this tub. Lower body dressing equipment given to pt for use in hospital. Pt was educated on equipment. Pt stated that she had used some of it at [facility]. Pt verbalized understanding of equipment. Unable at this time to try equipment due to pt's abdominal pain and nausea from constipation. After therapy, pt lying in bed with call light/phone in reach. All needs met in room. Therapy Code Descriptions/Definitions Functional [place] Measure: 0=Not Assessed/NA 4=Minimal Assistance 1=Total Assistance 5=Supervision or Setup 2=Maximal Assistance 6=Modified [place] 3=Moderate Assistance 7=Complete [place] Therapy Quality Codes: 6 Independent with activity with or without an assistive device 5 Patient requires set up or clean up by helper. Patient completes activity by themselves 4 Supervision or touching assist (CGA). [place] provide cues , steadying assist 3 The helper provides less than half the effort to complete the activity 2 The helper provides more than half the effort to complete the activity 1 Dependent. The helper does all the effort to complete an activity 7 Patient refused to complete or attempt activity 9 The patient did not perform the activity before the current illness or injury 88 Not attempted due to Medical conditions or safety concerns Grooming (FIM): 5 Oral Hygiene (QC): 5 Toileting (FIM): 5 Toileting Hygiene (QC): 4 Toilet/Commode Transfer (FIM): 5 Toilet Transfer (QC): 4 OT Short Term Goals Short Term Goals Time Frame: Apr 05, 2018 Eating(FIM): 6 Grooming(FIM): 6 Bathing(FIM): 5 Bathing Location: L Arm, R Arm, L Upper Leg, R Upper Leg, L Lower Leg ( including foot), R Lower Leg (including foot), Chest, Abdomen, Buttocks, Perineal Area Upper Body Dressing(FIM): 7 Lower Body Dressing(FIM): 6 Toileting(FIM): 6 Transfers (B,C,W/C) (FIM): 7 Toilet/Commode Transfer(FIM): 7 Tub Transfer(FIM): 2 Shower Transfer(FIM): 7 Additional Short Term Goals: 1-Demonstrate ADL Tasks, 2-Verbalize Understanding , 3-ImproveStrength/Gay 1=Demonstrate adherence to instructed precautions during ADL tasks. 2=Patient will verbalize/demonstrate understanding of assistive devices/ modifications for ADL. 3=Patient will improve strength/tolerance for activity to enable patient to perform ADL's. OT Manager Of Manufacturing Goals Manager Of Manufacturing Goals Time Frame: Apr 19, 2018 Eating (FIM): 7 Eating (QC): 6 Groomin Oral Hygiene (QC): 6 Bathing(FIM): 6 Bathing Location: L Arm, R Arm, L Upper Leg, R Upper Leg, L Lower Leg ( including foot), R Lower Leg (including foot), Chest, Abdomen, Buttocks, Perineal Area Shower/Bathe Self (QC): 6 Upper Body Dressing(FIM): 7 Upper Body Dressing (QC): 6 Lower Body Dressing(FIM): 6 Lower Body Dressing (QC): 6 On/Off Footwear (QC): 6 Toileting(FIM): 6 Toileting Hygiene (QC): 6 Transfers (B,C,W/C) (FIM): 6 Toilet/Commode Transfer(FIM): 6 Toilet/Commode Transfer (QC): 6 Tub Transfer(FIM): 6 Shower Transfer(FIM): 6 Additional Goals: 1-Demonstrate ADL Tasks, 2-Verbalize Understanding, 3- ImproveStrength/Gay 1=Demonstrate adherence to instructed precautions during ADL tasks. 2=Patient will verbalize/demonstrate understanding of assistive devices/ modifications for ADL. 3=Patient will improve strength/tolerance for activity to enable patient to perform ADL's. OT Education/Plan Discharge Recommendations Plan/Recommendations: Continue POC Treatment Plan/Plan of Care Patient would benefit from OT for education, treatment and training to promote independence in ADL's, mobility, safety and/or upper extremity function for ADL' s. Plan of Care: ADL Retraining, Caregiver Training, Functional Mobility, Group Exercise/Act as Ind, UE Funct Exercise/Act, UE Neuromus Re-Ed/Coord Treatment Duration: Apr 19, 2018 Frequency: At least 5 of 7 days/Wk (IRF) Estimated Hrs Per Day: 1.5 hours per day Agreement: Yes Rehab Potential: Good Time/GCodes Start Time: 10:00 Stop Time: 11:15 Total Time Billed (hr/min): 75 Billed Treatment Time 1 visit-ADL 2 (30 min) FA 3 (45 min) ERIN VELASCO Mar 23, 2018 11:29
[2018-03-23] MEDS: ACETAMINOPHEN 500 MG TAB (TYLENOL) PO PRN (12:25)
--- NOTE | 2018-03-23 12:31 | Physical Therapy Daily Note ---
PT Daily Note-Current Subjective Pt laying Supine in bed upon arrival. Pt has reported increased abdominal discomfort due to lack of BM. Nursing is aware and pt is not feeling well despite pain in L hip. Pain Numeric Pain Scale: 8 Location: Left Location Body Site: Hip Pain Description: Ache, Tightness, Cramping Mental Status Patient Orientation: Person, Place, Time, Situation Transfers Therapy Code Descriptions/Definitions Functional [place] Measure: 0=Not Assessed/NA 4=Minimal Assistance 1=Total Assistance 5=Supervision or Setup 2=Maximal Assistance 6=Modified [place] 3=Moderate Assistance 7=Complete [place] Therapy Quality Codes: 6 Independent with activity with or without an assistive device 5 Patient requires set up or clean up by helper. Patient completes activity by themselves 4 Supervision or touching assist (CGA). [place] provide cues , steadying assist 3 The helper provides less than half the effort to complete the activity 2 The helper provides more than half the effort to complete the activity 1 Dependent. The helper does all the effort to complete an activity 7 Patient refused to complete or attempt activity 9 The patient did not perform the activity before the current illness or injury 88 Not attempted due to Medical conditions or safety concerns Weight Bearing Right Lower Extremity: Right Full Weight Bearing Left Lower Extremity: Left Weight Bearing/Tolerated Exercises Supine Ex: Ankle pumps, Quad Set, Glut sets, Scooting (To reposition a few times in bed), Straight leg raise, Hip abd/add Supine Reps: 15 Treatments Pt completes Supine Ex in bed with several rest breaks as needed for nausea and pain. Pt and PORTER HEAD discuss pt education items including benefits of PT, positioning to comfort as well as how to assist with bed mobility which pt feels is a struggle compared to other tasks in Therapy. Pt resting in bed at end of tx with all needs met and lunch ordered. Assessment Current Status: Fair Progress Pt is limited by nausea and pain at this time. Nursing is aware. PT Short Term Goals Short Term Goals Time Frame: Mar 29, 2018 Transfers (B,C,W/C) (FIM): 7 Gait (FIM): 5 Distance (FIM): 3=150 ft Gait Assistive Device: FWW Stairs (FIM): 2 # of Steps: 4 PT Skilled Nursing Goals Skilled Nursing Goals PT Hr Internship Goals Time Frame: Apr 06, 2018 Transfers (B,C,W/C) (FIM): 6 Sit to Lying (QC): 6 Lying-Sitting on Side/Bed(QC): 6 Sit to Stand (QC): 6 Roll Left to Right (QC): 6 Chair/Cgf-ch-Wnvoo Xfer(QC): 6 Car Transfer (QC): 6 Does the Patient Walk: Yes Gait (FIM): 6 Walk 10 feet (QC): 6 Walk 10ft-Uneven Surface(QC): 6 Walk 50ft with 2 Turns (QC): 6 Walk 150 ft (QC): 6 Gait Assistive Device: FWW Does the Pt use WC or Scooter?: No Stairs (FIM): 5 (household) # of Steps: 4 1 Step (curb) (QC): 6 4 Steps (QC): 6 12 Steps (QC): 88 Picking up an Object (QC): 88 PT Plan Problem List Problem List: Activity Tolerance, Functional Strength, Safety, Balance, Gait, Transfer, Bed Mobility Treatment/Plan Treatment Plan: Continue Plan of Care Treatment Plan: Bed Mobility, Education, Functional Activity Gay, Functional Strength, Group Therapy, Gait, Safety, Therapeutic Exercise, Transfers Treatment Duration: Apr 06, 2018 Frequency: Modified Program (IRF) Estimated Hrs Per Day: 1.5 hours per day Patient and/or Family Agrees t: Yes Safety Risks/Education Patient Education: Transfer Techniques, Correct Positioning, Safety Issues Teaching Recipient: Patient Teaching Methods: Discussion Response to Teaching: Verbalize Understanding Time/GCodes Time In: 1130 Time Out: 1215 Total Billed Treatment Time: 45 Total Billed Treatment 1, FA (20m) & EX x2 (25m) G Codes Necessary: VI Souza PTA Mar 23, 2018 12:31
--- NOTE | 2018-03-23 12:56 | Occupational Ther Daily Note ---
OT Current Status-Daily Note Subjective Pt alert, lying in bed. Lunch was delivered for pt. Mental Status/Objective Patient Orientation: Person, Place, Time, Situation Therapy Code Descriptions/Definitions Functional [place] Measure: 0=Not Assessed/NA 4=Minimal Assistance 1=Total Assistance 5=Supervision or Setup 2=Maximal Assistance 6=Modified [place] 3=Moderate Assistance 7=Complete [place] ADL-Treatment Therapy Code Descriptions/Definitions Functional [place] Measure: 0=Not Assessed/NA 4=Minimal Assistance 1=Total Assistance 5=Supervision or Setup 2=Maximal Assistance 6=Modified [place] 3=Moderate Assistance 7=Complete [place] Therapy Quality Codes: 6 Independent with activity with or without an assistive device 5 Patient requires set up or clean up by helper. Patient completes activity by themselves 4 Supervision or touching assist (CGA). [place] provide cues , steadying assist 3 The helper provides less than half the effort to complete the activity 2 The helper provides more than half the effort to complete the activity 1 Dependent. The helper does all the effort to complete an activity 7 Patient refused to complete or attempt activity 9 The patient did not perform the activity before the current illness or injury 88 Not attempted due to Medical conditions or safety concerns Other Treatment Pt wanted to try and sit up for lunch. Pt able to go from supine to sitting EOB using bedrail and HOB slightly elevated, SBA. Pt sat EOB, c/o dizziness and requested to sit for a bit. Dizziness did not dissipate and pt became nauseous. Pt was able to push with arms and scoot up towards HOB while sitting on EOB by self. Pt then was able to go from sitting to supine and position self in bed by self using bedrails. Reported to nrsg about nausea. [place] and cold cloth given to pt incase of vomiting. Call light given to pt. All needs met in room. OT Short Term Goals Short Term Goals Time Frame: Apr 05, 2018 Eating(FIM): 6 Grooming(FIM): 6 Bathing(FIM): 5 Bathing Location: L Arm, R Arm, L Upper Leg, R Upper Leg, L Lower Leg ( including foot), R Lower Leg (including foot), Chest, Abdomen, Buttocks, Perineal Area Upper Body Dressing(FIM): 7 Lower Body Dressing(FIM): 6 Toileting(FIM): 6 Transfers (B,C,W/C) (FIM): 7 Toilet/Commode Transfer(FIM): 7 Tub Transfer(FIM): 2 Shower Transfer(FIM): 7 Additional Short Term Goals: 1-Demonstrate ADL Tasks, 2-Verbalize Understanding , 3-ImproveStrength/Gay 1=Demonstrate adherence to instructed precautions during ADL tasks. 2=Patient will verbalize/demonstrate understanding of assistive devices/ modifications for ADL. 3=Patient will improve strength/tolerance for activity to enable patient to perform ADL's. OT Nursing Home Goals Nursing Home Goals Time Frame: Apr 19, 2018 Eating (FIM): 7 Eating (QC): 6 Groomin Oral Hygiene (QC): 6 Bathing(FIM): 6 Bathing Location: L Arm, R Arm, L Upper Leg, R Upper Leg, L Lower Leg ( including foot), R Lower Leg (including foot), Chest, Abdomen, Buttocks, Perineal Area Shower/Bathe Self (QC): 6 Upper Body Dressing(FIM): 7 Upper Body Dressing (QC): 6 Lower Body Dressing(FIM): 6 Lower Body Dressing (QC): 6 On/Off Footwear (QC): 6 Toileting(FIM): 6 Toileting Hygiene (QC): 6 Transfers (B,C,W/C) (FIM): 6 Toilet/Commode Transfer(FIM): 6 Toilet/Commode Transfer (QC): 6 Tub Transfer(FIM): 6 Shower Transfer(FIM): 6 Additional Goals: 1-Demonstrate ADL Tasks, 2-Verbalize Understanding, 3- ImproveStrength/Gay 1=Demonstrate adherence to instructed precautions during ADL tasks. 2=Patient will verbalize/demonstrate understanding of assistive devices/ modifications for ADL. 3=Patient will improve strength/tolerance for activity to enable patient to perform ADL's. OT Education/Plan Discharge Recommendations Plan/Recommendations: Continue POC Treatment Plan/Plan of Care Patient would benefit from OT for education, treatment and training to promote independence in ADL's, mobility, safety and/or upper extremity function for ADL' s. Plan of Care: ADL Retraining, Caregiver Training, Functional Mobility, Group Exercise/Act as Ind, UE Funct Exercise/Act, UE Neuromus Re-Ed/Coord Treatment Duration: Apr 19, 2018 Frequency: At least 5 of 7 days/Wk (IRF) Estimated Hrs Per Day: 1.5 hours per day Agreement: Yes Rehab Potential: Good Time/GCodes Start Time: 12:30 Stop Time: 12:45 Total Time Billed (hr/min): 15 Billed Treatment Time 1 visit-FA 1 (15 min) ERIN VELASCO Mar 23, 2018 12:56
--- NOTE | 2018-03-23 13:43 | Occupational Ther Daily Note ---
OT Current Status-Daily Note Subjective Assisted nrsg with procedure for mobility when needed. Pt constipated and is nauseous with movement. Mental Status/Objective Patient Orientation: Person, Place, Time, Situation Therapy Code Descriptions/Definitions Functional [place] Measure: 0=Not Assessed/NA 4=Minimal Assistance 1=Total Assistance 5=Supervision or Setup 2=Maximal Assistance 6=Modified [place] 3=Moderate Assistance 7=Complete [place] ADL-Treatment Nrsg completed soap suds enema for pt's constipation. BARRIENT[place] assisted pt with bed mobility to adjust hips into sidelying. Pt able to go from sidelying to supine by self. Min A supine <--> sitting EOB. SBA to transfer to/from [facility]. Assist to doff pants due to hip precautions. After therapy, pt lying on L side with call light/phone in reach. All needs met in room. Therapy Code Descriptions/Definitions Functional [place] Measure: 0=Not Assessed/NA 4=Minimal Assistance 1=Total Assistance 5=Supervision or Setup 2=Maximal Assistance 6=Modified [place] 3=Moderate Assistance 7=Complete [place] Therapy Quality Codes: 6 Independent with activity with or without an assistive device 5 Patient requires set up or clean up by helper. Patient completes activity by themselves 4 Supervision or touching assist (CGA). [place] provide cues , steadying assist 3 The helper provides less than half the effort to complete the activity 2 The helper provides more than half the effort to complete the activity 1 Dependent. The helper does all the effort to complete an activity 7 Patient refused to complete or attempt activity 9 The patient did not perform the activity before the current illness or injury 88 Not attempted due to Medical conditions or safety concerns OT Short Term Goals Short Term Goals Time Frame: Apr 05, 2018 Eating(FIM): 6 Grooming(FIM): 6 Bathing(FIM): 5 Bathing Location: L Arm, R Arm, L Upper Leg, R Upper Leg, L Lower Leg ( including foot), R Lower Leg (including foot), Chest, Abdomen, Buttocks, Perineal Area Upper Body Dressing(FIM): 7 Lower Body Dressing(FIM): 6 Toileting(FIM): 6 Transfers (B,C,W/C) (FIM): 7 Toilet/Commode Transfer(FIM): 7 Tub Transfer(FIM): 2 Shower Transfer(FIM): 7 Additional Short Term Goals: 1-Demonstrate ADL Tasks, 2-Verbalize Understanding , 3-ImproveStrength/Gay 1=Demonstrate adherence to instructed precautions during ADL tasks. 2=Patient will verbalize/demonstrate understanding of assistive devices/ modifications for ADL. 3=Patient will improve strength/tolerance for activity to enable patient to perform ADL's. OT Blank Driller Goals Senior Living Goals Time Frame: Apr 19, 2018 Eating (FIM): 7 Eating (QC): 6 Groomin Oral Hygiene (QC): 6 Bathing(FIM): 6 Bathing Location: L Arm, R Arm, L Upper Leg, R Upper Leg, L Lower Leg ( including foot), R Lower Leg (including foot), Chest, Abdomen, Buttocks, Perineal Area Shower/Bathe Self (QC): 6 Upper Body Dressing(FIM): 7 Upper Body Dressing (QC): 6 Lower Body Dressing(FIM): 6 Lower Body Dressing (QC): 6 On/Off Footwear (QC): 6 Toileting(FIM): 6 Toileting Hygiene (QC): 6 Transfers (B,C,W/C) (FIM): 6 Toilet/Commode Transfer(FIM): 6 Toilet/Commode Transfer (QC): 6 Tub Transfer(FIM): 6 Shower Transfer(FIM): 6 Additional Goals: 1-Demonstrate ADL Tasks, 2-Verbalize Understanding, 3- ImproveStrength/Gay 1=Demonstrate adherence to instructed precautions during ADL tasks. 2=Patient will verbalize/demonstrate understanding of assistive devices/ modifications for ADL. 3=Patient will improve strength/tolerance for activity to enable patient to perform ADL's. OT Education/Plan Discharge Recommendations Plan/Recommendations: Continue POC Treatment Plan/Plan of Care Patient would benefit from OT for education, treatment and training to promote independence in ADL's, mobility, safety and/or upper extremity function for ADL' s. Plan of Care: ADL Retraining, Caregiver Training, Functional Mobility, Group Exercise/Act as Ind, UE Funct Exercise/Act, UE Neuromus Re-Ed/Coord Treatment Duration: Apr 19, 2018 Frequency: At least 5 of 7 days/Wk (IRF) Estimated Hrs Per Day: 1.5 hours per day Agreement: Yes Rehab Potential: Good Time/GCodes Start Time: 13:15 Stop Time: 13:35 Total Time Billed (hr/min): 20 Billed Treatment Time 1 visit-FA 1 (20 min) ERIN VELASCO Mar 23, 2018 13:43
--- NOTE | 2018-03-23 16:04 | Physical Therapy Daily Note ---
PT Daily Note-Current Subjective Patient is very agreeable to participate with PT. Patient reports she has not had a BM on this date. Pain Numeric Pain Scale: 5-Moderate Pain Location: Left Location Body Site: Hip Pain Description: Acute Mental Status Patient Orientation: Normal For Age Transfers Therapy Code Descriptions/Definitions Functional [place] Measure: 0=Not Assessed/NA 4=Minimal Assistance 1=Total Assistance 5=Supervision or Setup 2=Maximal Assistance 6=Modified [place] 3=Moderate Assistance 7=Complete [place] Therapy Quality Codes: 6 Independent with activity with or without an assistive device 5 Patient requires set up or clean up by helper. Patient completes activity by themselves 4 Supervision or touching assist (CGA). [place] provide cues , steadying assist 3 The helper provides less than half the effort to complete the activity 2 The helper provides more than half the effort to complete the activity 1 Dependent. The helper does all the effort to complete an activity 7 Patient refused to complete or attempt activity 9 The patient did not perform the activity before the current illness or injury 88 Not attempted due to Medical conditions or safety concerns Transfers (B, C, W/C) (FIM): 5 Scootin Supine to/from Sit: 5 Sit to/from Stand: 5 Sit to Lying (QC): 5 Sit to Stand (QC): 5 Chair/Dwk-ov-Rnwys Xfer(QC): 5 Bed to/from Chair: 5 Weight Bearing Right Lower Extremity: Right Full Weight Bearing Left Lower Extremity: Left Weight Bearing/Tolerated Gait Training Does the Patient Walk?: Yes Gait (FIM): 2 Distance (FIM): 5=346-44 ft Distance: 50' x 4 Walk 10 feet (QC): 5 Walk 50 ft with 2 Turns(QC): 5 Gait Level of Assist: 5 Gait Persons Needed: 1 Gait Assistive Device: FWW steady, slightly antalgic gait sequence Exercises Supine Ex: Ankle pumps, Quad Set, Heel Slides, Straight leg raise, Hip abd/add Supine Reps: 15 (2 sets (no SLR left LE)) Seated Therapy Exercises: Ankle pumps, Long arc quads, Hip flexion Seated Reps: 15 (2 sets) Assessment Patient progressing with treatment plan and remains up in recliner with needs met. Patient is very motivated and is highly encouraged with progress. PT Short Term Goals Short Term Goals Time Frame: Mar 29, 2018 Transfers (B,C,W/C) (FIM): 7 Gait (FIM): 5 Distance (FIM): 3=150 ft Gait Assistive Device: FWW Stairs (FIM): 2 # of Steps: 4 PT Assistant Hvac Mechanic Goals Assistant Hvac Mechanic Goals PT Assistant Hvac Mechanic Goals Time Frame: Apr 06, 2018 Transfers (B,C,W/C) (FIM): 6 Sit to Lying (QC): 6 Lying-Sitting on Side/Bed(QC): 6 Sit to Stand (QC): 6 Roll Left to Right (QC): 6 Chair/Dyq-kw-Riogk Xfer(QC): 6 Car Transfer (QC): 6 Does the Patient Walk: Yes Gait (FIM): 6 Walk 10 feet (QC): 6 Walk 10ft-Uneven Surface(QC): 6 Walk 50ft with 2 Turns (QC): 6 Walk 150 ft (QC): 6 Gait Assistive Device: FWW Does the Pt use WC or Scooter?: No Stairs (FIM): 5 (household) # of Steps: 4 1 Step (curb) (QC): 6 4 Steps (QC): 6 12 Steps (QC): 88 Picking up an Object (QC): 88 PT Plan Treatment/Plan Treatment Plan: Continue Plan of Care Treatment Plan: Bed Mobility, Education, Functional Activity Gay, Functional Strength, Group Therapy, Gait, Safety, Therapeutic Exercise, Transfers Treatment Duration: Apr 06, 2018 Frequency: Modified Program (IRF) Estimated Hrs Per Day: 1.5 hours per day Patient and/or Family Agrees t: Yes Time/GCodes Time In: 1515 Time Out: 1600 Total Billed Treatment Time: 45 Total Billed Treatment 1 visit EX x 2 25 min FA 20 min BEAN ALLEN PT Mar 23, 2018 16:04
[2018-03-23 16:11] VITALS: BP 92/60
[2018-03-23] MEDS: ENOXAPARIN 40 MG/0.4 ML (LOVENOX) SYR SC SCH (16:57)
[2018-03-23] MEDS: SIMvastatin 20 MG (ZOCOR) TAB PO SCH (21:19)
[2018-03-23] MEDS: HYDROcodone/APAP 10 MG/325 MG (LORTAB) TAB PO PRN (21:22)
[2018-03-24 06:00] VITALS: BP 92/61
[2018-03-24] MEDS: TICAGRELOR 90 MG TABLET (BRILINTA) PO SCH ×2 (08:13→21:34)
[2018-03-24] MEDS: POLYETHYLENE GLYCOL 17 GM (MIRALAX) PACK PO SCH ×2 (08:13→21:32)
[2018-03-24] MEDS: SENNA W/DOCUSATE (SENOKOT S) TABLET PO SCH ×2 (08:13→21:34)
[2018-03-24] MEDS: DOCUSATE SODIUM 100 MG (COLACE) CAP PO PRN ×2 (08:14→21:34)
[2018-03-24] MEDS: ASPIRIN E.C. 81 MG (ECOTRIN) TAB PO SCH (08:14)
[2018-03-24] MEDS: PANTOPRAZOLE 40 MG (PROTONIX) TAB PO SCH ×2 (08:14→17:48)
[2018-03-24] MEDS: inSUlin DETERMIR 1 UNIT/0.01 ML (LEVEMIR) CHARGE PER UNIT SQ SCH ×2 (08:19→21:33)
[2018-03-24] MEDS: CARVEDILOL 6.25 MG (COREG) TAB PO SCH ×2 (09:00→21:36)
--- NOTE | 2018-03-24 10:07 | Occupational Ther Daily Note ---
OT Current Status-Daily Note Mental Status/Objective Therapy Code Descriptions/Definitions Functional [place] Measure: 0=Not Assessed/NA 4=Minimal Assistance 1=Total Assistance 5=Supervision or Setup 2=Maximal Assistance 6=Modified [place] 3=Moderate Assistance 7=Complete [place] ADL-Treatment Therapy Code Descriptions/Definitions Functional [place] Measure: 0=Not Assessed/NA 4=Minimal Assistance 1=Total Assistance 5=Supervision or Setup 2=Maximal Assistance 6=Modified [place] 3=Moderate Assistance 7=Complete [place] Therapy Quality Codes: 6 Independent with activity with or without an assistive device 5 Patient requires set up or clean up by helper. Patient completes activity by themselves 4 Supervision or touching assist (CGA). [place] provide cues , steadying assist 3 The helper provides less than half the effort to complete the activity 2 The helper provides more than half the effort to complete the activity 1 Dependent. The helper does all the effort to complete an activity 7 Patient refused to complete or attempt activity 9 The patient did not perform the activity before the current illness or injury 88 Not attempted due to Medical conditions or safety concerns OT Short Term Goals Short Term Goals Time Frame: Apr 05, 2018 Eating(FIM): 6 Grooming(FIM): 6 Bathing(FIM): 5 Bathing Location: L Arm, R Arm, L Upper Leg, R Upper Leg, L Lower Leg ( including foot), R Lower Leg (including foot), Chest, Abdomen, Buttocks, Perineal Area Upper Body Dressing(FIM): 7 Lower Body Dressing(FIM): 6 Toileting(FIM): 6 Transfers (B,C,W/C) (FIM): 7 Toilet/Commode Transfer(FIM): 7 Tub Transfer(FIM): 2 Shower Transfer(FIM): 7 Additional Short Term Goals: 1-Demonstrate ADL Tasks, 2-Verbalize Understanding , 3-ImproveStrength/Gay 1=Demonstrate adherence to instructed precautions during ADL tasks. 2=Patient will verbalize/demonstrate understanding of assistive devices/ modifications for ADL. 3=Patient will improve strength/tolerance for activity to enable patient to perform ADL's. OT Retirement Goals Soloist Dancer Goals Time Frame: Apr 19, 2018 Eating (FIM): 7 Eating (QC): 6 Groomin Oral Hygiene (QC): 6 Bathing(FIM): 6 Bathing Location: L Arm, R Arm, L Upper Leg, R Upper Leg, L Lower Leg ( including foot), R Lower Leg (including foot), Chest, Abdomen, Buttocks, Perineal Area Shower/Bathe Self (QC): 6 Upper Body Dressing(FIM): 7 Upper Body Dressing (QC): 6 Lower Body Dressing(FIM): 6 Lower Body Dressing (QC): 6 On/Off Footwear (QC): 6 Toileting(FIM): 6 Toileting Hygiene (QC): 6 Transfers (B,C,W/C) (FIM): 6 Toilet/Commode Transfer(FIM): 6 Toilet/Commode Transfer (QC): 6 Tub Transfer(FIM): 6 Shower Transfer(FIM): 6 Additional Goals: 1-Demonstrate ADL Tasks, 2-Verbalize Understanding, 3- ImproveStrength/Gay 1=Demonstrate adherence to instructed precautions during ADL tasks. 2=Patient will verbalize/demonstrate understanding of assistive devices/ modifications for ADL. 3=Patient will improve strength/tolerance for activity to enable patient to perform ADL's. OT Education/Plan Treatment Plan/Plan of Care Patient would benefit from OT for education, treatment and training to promote independence in ADL's, mobility, safety and/or upper extremity function for ADL' s. Plan of Care: ADL Retraining, Caregiver Training, Functional Mobility, Group Exercise/Act as Ind, UE Funct Exercise/Act, UE Neuromus Re-Ed/Coord Treatment Duration: Apr 19, 2018 Frequency: At least 5 of 7 days/Wk (IRF) Estimated Hrs Per Day: 1.5 hours per day Agreement: Yes Rehab Potential: ERIN Baxter Mar 24, 2018 10:07
--- NOTE | 2018-03-24 10:40 | NUR ---
Pastoral care visit, pt shared some of her life story, has a strong fait, appreciates visit, life review and support and prayer.
--- NOTE | 2018-03-24 10:56 | Occupational Ther Daily Note ---
OT Current Status-Daily Note Subjective Pt alert, sitting in recliner. Pt stated that she had just came back from [place] since she hasn't been able to have a BM yet. Pt stated also that she still is nauseous with movement. Agrees therapy. C/o lower back pain. Mental Status/Objective Patient Orientation: Person, Place, Time, Situation Therapy Code Descriptions/Definitions Functional [place] Measure: 0=Not Assessed/NA 4=Minimal Assistance 1=Total Assistance 5=Supervision or Setup 2=Maximal Assistance 6=Modified [place] 3=Moderate Assistance 7=Complete [place] ADL-Treatment Pt agrees to therapy. Pt stated that she had ambulated with nrsg to bathroom and brushed teeth then. Pt requested not to don lower body clothing due to possibility of bowel movement. Due to nausea with movement, pt transferred into shower using rolling shower chair. Pt did transfer out of shower using FWW with SBA. After ambulating from bathroom to recliner, pt was very nauseous and required time to relax. CHRYSTAL hose donned. After therapy, pt sitting in recliner with quality assurance monitor final present in room. Sergio light/phone in reach. All needs met in room. Therapy Code Descriptions/Definitions Functional [place] Measure: 0=Not Assessed/NA 4=Minimal Assistance 1=Total Assistance 5=Supervision or Setup 2=Maximal Assistance 6=Modified [place] 3=Moderate Assistance 7=Complete [place] Therapy Quality Codes: 6 Independent with activity with or without an assistive device 5 Patient requires set up or clean up by helper. Patient completes activity by themselves 4 Supervision or touching assist (CGA). [place] provide cues , steadying assist 3 The helper provides less than half the effort to complete the activity 2 The helper provides more than half the effort to complete the activity 1 Dependent. The helper does all the effort to complete an activity 7 Patient refused to complete or attempt activity 9 The patient did not perform the activity before the current illness or injury 88 Not attempted due to Medical conditions or safety concerns Bathing (FIM): 4 (Using rolling shower chair with cutout, hand held shower and long handle sponge pt able to complete by self. Assist to dry feet.) Bathing Location: L Arm, R Arm, L Upper Leg, R Upper Leg, L Lower Leg ( including foot), R Lower Leg (including foot), Chest, Abdomen, Buttocks, Perineal Area Shower/Bathe Self (QC): 3 OT Short Term Goals Short Term Goals Time Frame: Apr 05, 2018 Eating(FIM): 6 Grooming(FIM): 6 Bathing(FIM): 5 Bathing Location: L Arm, R Arm, L Upper Leg, R Upper Leg, L Lower Leg ( including foot), R Lower Leg (including foot), Chest, Abdomen, Buttocks, Perineal Area Upper Body Dressing(FIM): 7 Lower Body Dressing(FIM): 6 Toileting(FIM): 6 Transfers (B,C,W/C) (FIM): 7 Toilet/Commode Transfer(FIM): 7 Tub Transfer(FIM): 2 Shower Transfer(FIM): 7 Additional Short Term Goals: 1-Demonstrate ADL Tasks, 2-Verbalize Understanding , 3-ImproveStrength/Gay 1=Demonstrate adherence to instructed precautions during ADL tasks. 2=Patient will verbalize/demonstrate understanding of assistive devices/ modifications for ADL. 3=Patient will improve strength/tolerance for activity to enable patient to perform ADL's. OT [facility] Goals [employer] Mobile Goals Time Frame: Apr 19, 2018 Eating (FIM): 7 Eating (QC): 6 Groomin Oral Hygiene (QC): 6 Bathing(FIM): 6 Bathing Location: L Arm, R Arm, L Upper Leg, R Upper Leg, L Lower Leg ( including foot), R Lower Leg (including foot), Chest, Abdomen, Buttocks, Perineal Area Shower/Bathe Self (QC): 6 Upper Body Dressing(FIM): 7 Upper Body Dressing (QC): 6 Lower Body Dressing(FIM): 6 Lower Body Dressing (QC): 6 On/Off Footwear (QC): 6 Toileting(FIM): 6 Toileting Hygiene (QC): 6 Transfers (B,C,W/C) (FIM): 6 Toilet/Commode Transfer(FIM): 6 Toilet/Commode Transfer (QC): 6 Tub Transfer(FIM): 6 Shower Transfer(FIM): 6 Additional Goals: 1-Demonstrate ADL Tasks, 2-Verbalize Understanding, 3- ImproveStrength/Gay 1=Demonstrate adherence to instructed precautions during ADL tasks. 2=Patient will verbalize/demonstrate understanding of assistive devices/ modifications for ADL. 3=Patient will improve strength/tolerance for activity to enable patient to perform ADL's. OT Education/Plan Discharge Recommendations Plan/Recommendations: Continue POC Treatment Plan/Plan of Care Patient would benefit from OT for education, treatment and training to promote independence in ADL's, mobility, safety and/or upper extremity function for ADL' s. Plan of Care: ADL Retraining, Caregiver Training, Functional Mobility, Group Exercise/Act as Ind, UE Funct Exercise/Act, UE Neuromus Re-Ed/Coord Treatment Duration: Apr 19, 2018 Frequency: At least 5 of 7 days/Wk (IRF) Estimated Hrs Per Day: 1.5 hours per day Agreement: Yes Rehab Potential: Good Time/GCodes Start Time: 10:00 Stop Time: 11:00 Total Time Billed (hr/min): 60 Billed Treatment Time 1 visit-ADL 4 (60 min) ERIN VELASCO Mar 24, 2018 10:56
--- NOTE | 2018-03-24 11:24 | Diagnostic Imaging Report ---
INDICATION: No bowel movement for 10 days. TIME OF EXAMINATION: 10:06 AM. FINDINGS: There are surgical clips in the right upper quadrant as well as throughout the mid and left abdomen. The bowel gas pattern is nonobstructive. There is a moderate amount of stool in the left colon. The transverse and right colon are unremarkable. The small bowel is nondilated. No pathologic calcifications are seen. There is no free air. There are postop changes to the left hip. IMPRESSION: [id number] stool in the left colon. The study is otherwise unremarkable. Dictated by: Dictated on workstation # [id number]
[2018-03-24] MEDS: CYCLOBENZAPRINE 10 MG (FLEXERIL) TAB PO PRN ×2 (11:54→21:35)
[2018-03-24] MEDS: ACETAMINOPHEN 500 MG TAB (TYLENOL) PO PRN (11:54)
[2018-03-24 12:19] VITALS: BP 97/66
--- NOTE | 2018-03-24 12:20 | Physical Therapy Daily Note ---
PT Daily Note-Current Subjective Pt sitting in recliner upon arrival. Pt agrees to PT. Pt reports still no BM, pain in B hip. Pain Numeric Pain Scale: 8 Location: Right, Left Location Body Site: Hip Pain Description: Ache, Tightness Mental Status Patient Orientation: Person, Place, Time, Situation Transfers Therapy Code Descriptions/Definitions Functional [place] Measure: 0=Not Assessed/NA 4=Minimal Assistance 1=Total Assistance 5=Supervision or Setup 2=Maximal Assistance 6=Modified [place] 3=Moderate Assistance 7=Complete [place] Therapy Quality Codes: 6 Independent with activity with or without an assistive device 5 Patient requires set up or clean up by helper. Patient completes activity by themselves 4 Supervision or touching assist (CGA). [place] provide cues , steadying assist 3 The helper provides less than half the effort to complete the activity 2 The helper provides more than half the effort to complete the activity 1 Dependent. The helper does all the effort to complete an activity 7 Patient refused to complete or attempt activity 9 The patient did not perform the activity before the current illness or injury 88 Not attempted due to Medical conditions or safety concerns Scootin Sit to/from Stand: 5 Sit to Stand (QC): 5 Weight Bearing Right Lower Extremity: Right Full Weight Bearing Left Lower Extremity: Left Weight Bearing/Tolerated Gait Training Does the Patient Walk?: Yes Distance (FIM): 3=150 ft Distance: 150' Walk 10 feet (QC): 5 Walk 50 ft with 2 Turns(QC): 5 Walk 150 ft (QC): 5 Gait Level of Assist: 5 Gait Persons Needed: 1 Gait Assistive Device: FWW Pt walks with slight antalgic gait but this does not limit participation or ambulation. Exercises Seated Therapy Exercises: Ankle pumps, Long arc quads, Hip flexion, Kicking activity, Hip abd/add (10 reps) Seated Reps: 20 Treatments Pt transfers from recliner to standing using FWW at [facility]. Pt uses restroom then ambulates in hallway to Therapy Gym using FWW at [facility]. Pt completes Seated Ex in chair as pt's family arrives. Pt takes rest breaks as needed for pain and fatigue. FIBER HEEL PIECE SHAPER gives pt education to pt & family over pt's progress and what pt is working on with pt to improve outcome for discharge. Pt returns to room to rest, eat lunch & visit with family. Pt resting in recliner with all needs met. Assessment Current Status: Good Progress Pt continues to be motivated and push self to improve a little each day. PT Short Term Goals Short Term Goals Time Frame: Mar 29, 2018 Transfers (B,C,W/C) (FIM): 7 Gait (FIM): 5 Distance (FIM): 3=150 ft Gait Assistive Device: FWW Stairs (FIM): 2 # of Steps: 4 PT Drilling Field Operator Goals [facility]ci Goals PT Drilling Field Operator Goals Time Frame: Apr 06, 2018 Transfers (B,C,W/C) (FIM): 6 Sit to Lying (QC): 6 Lying-Sitting on Side/Bed(QC): 6 Sit to Stand (QC): 6 Roll Left to Right (QC): 6 Chair/Ebw-ou-Rnxjx Xfer(QC): 6 Car Transfer (QC): 6 Does the Patient Walk: Yes Gait (FIM): 6 Walk 10 feet (QC): 6 Walk 10ft-Uneven Surface(QC): 6 Walk 50ft with 2 Turns (QC): 6 Walk 150 ft (QC): 6 Gait Assistive Device: FWW Does the Pt use WC or Scooter?: No Stairs (FIM): 5 (household) # of Steps: 4 1 Step (curb) (QC): 6 4 Steps (QC): 6 12 Steps (QC): 88 Picking up an Object (QC): 88 PT Plan Problem List Problem List: Activity Tolerance, Functional Strength, Gait Treatment/Plan Treatment Plan: Continue Plan of Care Treatment Plan: Bed Mobility, Education, Functional Activity Gay, Functional Strength, Group Therapy, Gait, Safety, Therapeutic Exercise, Transfers Treatment Duration: Apr 06, 2018 Frequency: Modified Program (IRF) Estimated Hrs Per Day: 1.5 hours per day Patient and/or Family Agrees t: Yes Safety Risks/Education Patient Education: Gait Training, Transfer Techniques, Correct Positioning, Disease Process, Safety Issues Teaching Recipient: Patient, Family Teaching Methods: Discussion Response to Teaching: Verbalize Understanding Time/GCodes Time In: 1115 Time Out: 1215 Total Billed Treatment 1, GT (15m), EX (20m) & FA x2 (25m) G Codes Necessary: No VI GILLETTE FIBER HEEL PIECE SHAPER Mar 24, 2018 12:20
--- NOTE | 2018-03-24 12:45 | NUR ---
DR. PAGE TO FLOOR AND INFORMED THAT COREG WAS HELD THIS MORNING DUE TO PATIENT'S BP. CURRENT PRESSURE OF 97/66. WILL CONTINUE TO MONITOR.
--- NOTE | 2018-03-24 12:59 | NUR ---
Initial Assessment Visited with patient and her daughter, Alivia, regarding the inpatient rehab program. Patient reports she lives in a mobile home with her spouse in [place], [place]. She reports her is building an entry ramp on one side of the home. Her daughter works in the lab at Dr. Murphy's office and is engaged and involved in her mother's care. The patient reports she has stage 4 metastatic cancer and that she currently has 3 walkers and a shower chair at home. She utilizes [facility] in [place] for prescriptions. The patient is very motivated to participate with therapies. She appears to have good family support. Discharge goal is to return home.
--- NOTE | 2018-03-24 13:17 | Consultation-Cardiology ---
HPI-Cardiology Cardiology Consultation: Date of Consultation 03/24/18 Date of Admission Attending Physician Elsie Granados DO Admitting Physician Faina,Local Physician Consulting Physician Velma POTTS MD HPI: Time Seen by a Provider: 13:17 Chief Complaint: History of CAD. This is a 62-year-old lady who has history of renal cell carcinoma. She had recent left hip fracture. Due to a fall. Surgery done at [facility]. In January 2018 she had an IA and stents were placed at [facility]. Patient is on dual antiplatelet therapy. Patient denies any cardiac symptoms. Review of Systems-Cardiology Review of Systems Constitutional: As described under HPI; No As described under HPI, No no symptoms reported, No chills, No fever, No lightheadedness Eyes: No As described under HPI, No no symptoms reported, No blindness, No blurred vision, No contact lenses, No drainage, No decreased acuity, No foreign body sensation, No pain, No vision change Ears/Nose/Throat: No As described under HPI, No no symptoms reported, No chronic hearing loss, No ear discharge, No ear pain, No nasal drainage, No ulcerations Respiratory: No no symptoms reported; As described under HPI; No As described under HPI, No cough, No orthopnea, No shortness of breath, No SOB with excertion Cardiovascular: No no symptoms reported; As described under HPI; No As described under HPI, No chest pain, No edema, No irregular heart rate, No lightheadedness, No palpitations Gastrointestinal: No no symptoms reported, No As described under HPI, No abdomen distended, No abdominal pain, No blood streaked bowels, No constipation , No diarrhea, No nausea, No vomiting, No stool coloration changes Genitourinary: No As described under HPI, No burning, No dysuria, No discharge , No frequency, No flank pain, No hematuria, No urgency : Yes : No Musculoskeletal: No no symptoms reported, No As describe under HPI, No back pain, No gout; joint pain; No joint swelling, No muscle pain, No muscle stiffness, No neck pain, No other Skin: No no symptoms reported, No As described under HPI, No change in color, No change in hair/nails, No dryness, No lesions, No lumps, No rash, No other, No skin related problems, No ulcerations, No rash on exposed areas, No ulcerations on exposed areas Psychiatric/Neurological: No anxiety, No depression, No seizure, No focal weakness, No syncope Hematologic: No bleeding abnormalities All Other Systems Reviewed Negative Unless Noted: Yes KFA-Rcegey-Fgrelg Hx Patient Social History Marrital Status: 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 Allergies and Home Medications Allergies Coded Allergies: Penicillins (Verified Allergy, Unknown, 03/22/18) codeine (Verified Allergy, Unknown, 03/22/18) morphine (Verified Allergy, Unknown, 03/22/18) oxycodone (Verified Allergy, Unknown, 03/22/18) Home Medications Aspirin 81 Mg Tablet.dr, 81 MG PO DAILY, (Reported) Carvedilol 6.25 Mg Tablet, 6.25 MG PO BID, (Reported) LAST FILLED #60 02-04-18 Fentanyl 1 Each Patch.td72, 25 MCG TD Q72H, (Reported) Furosemide 80 Mg Tablet, 80 MG PO DAILY PRN for SWELLING, (Reported) Hydrocodone/Acetaminophen 1 Each Tablet, 1 TAB PO Q6H PRN for PAIN-MODERATE, ( Reported) Insulin Aspart 300 Units/3 Ml Solution, 10 UNITS SQ AC PRN for BS > 300, ( Reported) Insulin Detemir 100 Unit/1 Ml Insuln.pen, SQ UD, (Reported) TAKES 50 UNITS BEFORE BREAKFAST IF BS > 200 TAKES 50 UNITS BEFORE EVENING MEAL IF BS >225 Pantoprazole Sodium 40 Mg Tablet.dr, 40 MG PO 0800,1800, (Reported) Potassium Chloride 20 Meq Tablet.er, 20 MEQ PO DAILY PRN for WHEN TAKING FUROSEMIDE, (Reported) Pravastatin Sodium 40 Mg Tablet, 40 MG PO HS, (Reported) Ticagrelor 90 Mg Tablet, 90 MG PO BID, (Reported) Patient Home Medication List Home Medication List Reviewed: Yes Physical Exam-Cardiology Physical Exam Vital Signs/I&O 03/25/18 03/25/18 03/25/18 06:00 08:17 08:50 Temp 97.8 Pulse 80 76 Resp 18 B/P (MAP) 97/66 (76) Pulse Ox 93 O2 Delivery Room Air Room Air 03/25/18 00:00 Intake Total 1020 ml Balance 1020 ml Capillary Refill : Constitutional: appears stated age, AAO x 3; No apparent distress; well- developed, well-nourished HEENT: PERRL; No normal ENT inspection, No TMs normal, No pharynx normal, No scleral icterus (R), No scleral icterus (L), No pale conjunctivae (R), No pale conjunctivae (L), No photophobia, No TM abnormal (R), No TM abnormal (L), No pharyngeal erythema, No tonsillar exudate, No other, No discharge, No EOMI; hearing is well preserved; No hard of hearing; oral hygience is good; No ulceration, No xanthelasmas are seen Neck: No non-tender, No full range of motion, No supple, No normal inspection, No carotid bruit, No limited range of motion, No lymphadenopathy (R), No lymphadenopathy (L), No tender lateral, No tender midline, No thyromegaly, No other; carotid pulses are 2 + bilaterally; No with good upstrokes Respiratory: No accessory muscle use, No respiratory distress, No chest tender , No chest expansion is symmetric; chest is bilaterally symmetric; No lungs clear to percussion; lungs clear to auscultation; No crackles, No rhonchi, No rales, No stridor, No wheezing, No pleural rub, No other Cardiovascular: regular rate-rhythm; No irregularly irregular, No extra beats, No parasternal heave is noted, No JVD, No edema, No bradycardia, No tachycardia , No point of maximal impulse, No cardiac thrills are palpable; S1 and S2; No gallop/S3, No gallop/S4, No diastolic murmur, No systolic murmur, No friction rub, No click, No other Gastrointestinal: No tender, No soft, No round, No distended, No pulsatile mass , No organomegaly, No guarding, No rebound, No tenderness, No hernia, No mass, No audible bowel sounds, No abnormal bowel sounds, No abdominal bruits, No spleenomegaly, No other Rectal: deferred Extremities: No normal range of motion, No non-tender, No normal inspection, No pedal edema, No calf tenderness, No normal capillary refill, No pelvis stable , No calf tenderness, No inflammation, No pedal edema, No slow capillary refill , No swelling, No other, No abrasion, No clubbing, No cyanosis, No ecchymosis, No laceration, No no lower extremity edema bilateral, No significant edema, No tenderness, No wound Neurologic/Psychiatric: no motor/sensory deficits, alert, normal mood/affect, oriented x 3, power is 5/5 both on sides Skin: No normal color, No warm/dry, No cyanosis, No cool, No diaphoresis, No damp, No ecchymosis, No jaundice, No mottled, No pallor, No rash, No tattoos/ piercings, No ulcerations, No rash on exposed areas, No ulcerations on exposed areas, No other Data Review Labs Laboratory Tests 03/24/18 14:20: Glucometer 162H 03/24/18 15:56: Glucometer 125H 03/24/18 20:39: Glucometer 158H 03/25/18 05:41: Glucometer 150H 03/25/18 11:12: Glucometer 198H A/P-Cardiology Assessment/Admission Diagnosis Hip fracture, inpatient rehabilitation, History of IA/CAD/PCI, Hyperlipidemia, Hypertension, History of renal cell carcinoma. Plan Hip fracture, inpatient rehabilitation, History of IA/CAD/PCI, continue dual antiplatelet therapy with aspirin and Brilinta. Continue statin and beta lindsay. Hyperlipidemia, pravastatin. Hypertension, carvedilol. History of renal cell carcinoma. Thank you for your consultation. Please call me if you have any questions. Anton Potts MD, FACP, FACC, FSCAI, FHRS, CCDS Interventional Cardiology Cardiac Electrophysiology Vascular Medicine and Endovascular Interventions Clinical Quality Measures DVT/VTE Risk/Contraindication: Risk Factor Score Per Nursin RFS Level Per Nursing on Admit: 2=Moderate Velma POTTS MD Mar 24, 2018 13:17
[2018-03-24] MEDS: HYDROcodone/APAP 10 MG/325 MG (LORTAB) TAB PO PRN ×2 (14:23→21:34)
--- NOTE | 2018-03-24 15:28 | Therapy Group Daily Note ---
Therapy Daily Group Note Patient Education Topic Other List Below (Memory) Exercises LE Seated Exercise, UE Exercise Other/Notes Pt participated in group therapy with 4 to 1 ratio. Goals of session: Pt will verbalize understanding of memory strategies (met). Lead one UE or LE seated exercise during group therapy (met). Pt ambulated using FWW to [facility] for OT/PT group. Group consisted on introductions (name, place living, what would you name a cheetah), socialization , pt led UE/LE seated exercises, memory education/strategies and memory activity. Pt introduced self appropriately and actively listened to peers. Pt acknowledged understanding of memory strategies/education by verbalizing personal strategies. Pt was able to lead one exercise without difficulty then complete rest of exercises. During memory activity pt was able to match pictures on turn. Pt will benefit from group by increasing short term memory and use strategies during daily functional tasks. Pt will be able to complete UE/LE seated exercises after discharge. Pt ambulated back to room due to wound on Sacrum. BLOW MOLD MACHINE OPERATOR notified Nurse of Sacral wound and put Zinc on it. Pt then transfers to bed and repositioned with pillow off sacrum to comfort. Call light/ phone in reach. All needs met in room. Start Time: 13:00 Stop Time: 14:15 Total Billed Treatment Time: 75 Total Billed Treatment 1, GRP (75m) IV GILLETTE PTA Mar 24, 2018 15:28
[2018-03-24] MEDS: ENOXAPARIN 40 MG/0.4 ML (LOVENOX) SYR SC SCH (16:12)
--- NOTE | 2018-03-24 16:37 | CONSULTATION REPORT ---
DATE OF SERVICE: 03/24/2018 ADMITTING PHYSICIAN: Elsie Granados DO. HISTORY OF PRESENT ILLNESS: The patient is a 62-year-old female who fell at home and developed pain in the left hip. She was brought to the Emergency Department and found to have a significant fracture. However, the fracture was pathologic and most likely secondary to the fall coupled with metastatic disease from a history of renal cell cancer. She was on anticoagulation with Brilinta and was slowly allowed to correct on its own and then underwent surgery. Since that time, she has done well; however, since her initial admission approximately eight days ago, she has only had one small bowel movement. An x-ray was performed which did show significant amount of stool in the left side and sigmoid colon consistent with constipation. No signs of obstruction. She is currently receiving MiraLax as well as stool softeners. Her abdomen is not distended and she does not have any pain. PAST MEDICAL HISTORY: Metastatic right renal cell cancer, hypercholesterolemia, hypertension, coronary artery disease, history of constipation, degenerative joint disease, and diabetes. PAST SURGICAL HISTORY: Right nephrectomy, and ORIF of left hip. ALLERGIES: PENICILLIN, CODEINE, MORPHINE, AND OXYCODONE. MEDICATIONS: Aspirin 81 mg daily, carvedilol 6.25 mg daily, fentanyl patch 25 mcg q.72 hours, furosemide 80 mg daily, hydrocodone p.r.n. and insulin 10 units q.a.c., detemir insulin daily, Protonix 40 mg daily, potassium 20 mEq daily, pravastatin 40 mg daily, and Brilinta 90 mg b.i.d. SOCIAL HISTORY: Previous smoke, negative alcohol. FAMILY HISTORY: Noncontributory. REVIEW OF SYSTEMS: Well-nourished female, currently in no acute distress. She is not experiencing any shortness of breath or difficulty breathing. No chest pain, palpitations or diaphoresis. No nausea, vomiting with a history of constipation with worsening constipation due to immobility, recent surgery as well as opioid pain medication. She did have one bowel movement, which was hard in consistency, no red blood per rectum nor any dark tarry stools. No fever or chills, no recent inadvertent weight loss. All other review of systems is negative. PHYSICAL EXAMINATION: VITAL SIGNS: Temperature is 97.9, blood pressure 97/66, pulse 92, respirations 18, and pulse ox 97% on room air. CHEST: Clear. Good breath sounds bilaterally. HEART: Regular, no murmurs. EXTREMITIES: Bilateral lower extremity edema 1/3. Negative Homans sign. HEENT: No scleral icterus. No cervical lymphadenopathy. ABDOMEN: Soft, nontender, and nondistended. No peritoneal signs. SKIN: Warm, dry. LABORATORY DATA: WBC is 7.3, hemoglobin 10.8, hematocrit 33, and platelets 291. ASSESSMENT AND PLAN: A 62-year-old female with exacerbation of chronic constipation secondary to immobility, recent surgery as well as opioid pain medication for the surgery as well as metastatic renal cell cancer. She is currently on stool softeners b.i.d. as well as MiraLax on a b.i.d. basis. She did have a small bowel movement yesterday. A recent x-ray was done, which did show constipation. At this time, we will continue the current therapy; however, she does not have a significant bowel movement. If she has abdominal distention or discomfort, we will try a different laxative to help promote significant bowel movements. Job ID: [id number] DocumentID: [id number] Dictated Date: 03/24/2018 16:01:34 Acoustic Intelligence Specialist Date: 03/24/2018 16:36:21 Dictated By: JELENA ORR MD
[2018-03-24 18:39] VITALS: BP 92/56
[2018-03-24] MEDS: MELATONIN 3 MG TABLET PO PRN (21:33)
[2018-03-24] MEDS: SIMvastatin 20 MG (ZOCOR) TAB PO SCH (21:34)
--- NOTE | 2018-03-24 22:09 | PM&R Progress Note ---
Subjective This was a face to face visit with the patient. Date Seen by Provider: Mar 24, 2018 Time Seen by Provider: 09:00 Subjective/Events-last exam Patient was seen in Date Identified: Mar 24, 2018 Time Identified: 09:00 Medication Intervention: severe constipation without results from SSE and multiple other meds Review of Systems Gastrointestinal: Constipation Musculoskeletal: leg pain Objective Physician Exam Last Set of Vital Signs Vital Signs Date Time Temp Pulse Resp B/P (MAP) Pulse Ox O2 Delivery O2 Flow Rate FiO2 03/24/18 18:39 97.2 88 16 92/56 (68) 97 Room Air Capillary Refill : I&O Intake and Output 03/24/18 00:00 Intake Total 1200 ml Balance 1200 ml Intake Oral 1200 ml # Voids 7 # Bowel Movements 1 General: Alert, Oriented X3, Cooperative, No Acute Distress HEENT: Atraumatic, PERRLA Neck: Supple, No JVD, No Thyromegaly, +2 Carotid Pulse No Bruit, No LAD Lungs: Clear to Auscultation, Normal Air Movement Heart: Regular Rate, Normal S1, Normal S2, No Murmurs Abdomen: Normal Bowel Sounds, Soft, No Tenderness, No Hepatosplenomegaly, No Masses Extremities: No Clubbing, No Cyanosis, No Edema, Normal Pulses, No Tenderness/ Swelling Skin: No Rashes, No Breakdown, No Significant Lesion Neuro: Normal Speech, Normal Tone, Sensation Intact, Cranial Nerves 3-12 NL, Reflexes 2+, Other (Decreased range of motion left leg) Psych/Mental Status: Mental Status NL, Mood NL Results Lab Data Laboratory Tests 03/22/18 16:45: Glucometer 177H 03/22/18 20:11: Glucometer 244H 03/23/18 05:24: Glucometer 100 03/23/18 05:50: White Blood Count 7.3, Red Blood Count 3.77L, Hemoglobin 10.8L, Hematocrit 33L, Mean Corpuscular Volume 88, Mean Corpuscular Hemoglobin 29, Mean Corpuscular Hemoglobin Concent 32, Red Cell Distribution Width 15.0H, Platelet Count 291, Mean Platelet Volume 10.0, Neutrophils (%) (Auto) 57, Lymphocytes (%) (Auto) 20 , Monocytes (%) (Auto) 14H, Eosinophils (%) (Auto) 10, Basophils (%) (Auto) 0, Neutrophils # (Auto) 4.2, Lymphocytes # (Auto) 1.4, Monocytes # (Auto) 1.0, Eosinophils # (Auto) 0.7H, Basophils # (Auto) 0.0, Sodium Level 137, Potassium Level 3.9, Chloride Level 101, Carbon Dioxide Level 26, Anion Gap 10, Blood Urea Nitrogen 16, Creatinine 1.07, Estimat Glomerular Filtration Rate 52, BUN/ Creatinine Ratio 15, Glucose Level 84, Calcium Level 9.4, Corrected Calcium 10.0 , Total Bilirubin 0.4, Aspartate Amino Transf (AST/SGOT) 14, Alanine Aminotransferase (ALT/SGPT) < 6, Alkaline Phosphatase 73, Total Protein 6.9, Albumin 3.3 03/23/18 10:43: Glucometer 107 03/23/18 16:09: Glucometer 108 03/23/18 20:32: Glucometer 179H 03/24/18 06:29: Glucometer 132H 03/24/18 14:20: Glucometer 162H 03/24/18 15:56: Glucometer 125H 03/24/18 20:39: Glucometer 158H Current Funtional Status Appreciate Dr. Clements consultation Continue bowel regimen Reviewed x-ray Reviewed labs from yesterday Overall doing much better but will need to get bowels moving to help recovery Assessment/Plan Assessment and Plan (1) Closed left hip fracture Qualifiers: Qualified Codes: S72.002D - Fracture of unspecified part of neck of left femur, subsequent encounter for closed fracture with routine healing Status: Acute (2) Constipation Qualifiers: Qualified Codes: K59.01 - Slow transit constipation (3) Metastatic renal cell carcinoma to bone Status: Chronic (4) Diabetes mellitus Qualifiers: Qualified Codes: E11.59 - Type 2 diabetes mellitus with other circulatory complications; Z79.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 of insulin Status: Chronic (5) Edema Qualifiers: Qualified Codes: R60.0 - Localized edema Status: Chronic (6) GERD (gastroesophageal reflux disease) Qualifiers: Qualified Codes: K21.9 - Gastro-esophageal reflux disease without esophagitis Status: Chronic (7) Chronic pain Qualifiers: Qualified Codes: G89.3 - Neoplasm related pain (acute) (chronic) Status: Chronic (8) DVT prophylaxis Status: Acute (9) Myocardial infarct, old Status: Chronic (10) Stomach ulcer Qualifiers: Qualified Codes: K25.9 - Gastric ulcer, unspecified as acute or chronic, without hemorrhage or perforation Status: Chronic (11) CAD (coronary artery disease) Qualifiers: Qualified Codes: I25.10 - Atherosclerotic heart disease of [place] coronary artery without angina pectoris Status: Chronic (12) Hip fracture requiring operative repair Qualifiers: Qualified Codes: S72.002D - Fracture of unspecified part of neck of left femur, subsequent encounter for closed fracture with routine healing Status: Acute Co-Morbidities that are continuing to impact the rehab process: (include details ) MICHELLE BONILLA DO Mar 24, 2018 22:09
--- NOTE | 2018-03-25 06:56 | Individualized Plan of Care ---
Individualized Plan of Care Rehab Nursing IPOC Order Admission Date Mar 22, 2018 at 14:10 Current Orders Orders Admission Order(Inpt,Obs,Sdc) (03/22/18 12:41) Irrigation Equipment Mechanic-Inpt Rehab Con (03/22/18 12:41) Rehab Nursing Orders-Ipoc (03/22/18 12:41) Physical Therapy Rehab Orders (03/22/18 12:41) Occupational Therapy Rehab Ord (03/22/18 12:41) Speech Therapy Rehab Orders (03/22/18 12:41) Intake & Output 06,14,22 (03/22/18 12:41) Precautions (Aru) (03/22/18 12:41) Daily Weight 06 (03/22/18 12:41) Weekly Weight (Lbs) WEEK (03/22/18 12:41) Rehab-Intensity Of Therapy (03/22/18 12:41) Code/Resuscitation (03/22/18 12:41) Initiate Admission Nursing Pro .admission (03/22/18 12:41) Accucheck Achs ACHS (03/22/18 12:41) Insulin Aspart (Novolog) (Novolog (Charg (03/22/18 16:00) Acetaminophen Tablet (Tylenol Tablet) (03/22/18 12:45) Alprazolam Tablet (Xanax Tablet) (03/22/18 12:45) Calcium Carbonate Chew Tablet (Antacid C (03/22/18 12:45) Diphenhydramine Tablet (Benadryl Tablet) (03/22/18 12:45) Docusate Sodium Capsule (Colace Capsule) (03/22/18 12:45) Loperamide Capsule (Imodium Capsule) (03/22/18 12:45) Melatonin Tablet (Melatonin Tablet) (03/22/18 12:45) Polyethylene Glycol Powder Pkt (Miralax (03/22/18 12:45) Bisacodyl Suppository (Dulcolax Supposit (03/22/18 12:45) Hydrocodone/Apap 5/325 Tablet (Lortab 5 (03/22/18 12:45) Ondansetron Oral Dissolve Tab (Zofran (03/22/18 12:45) Admission Arrival Bed Request (03/22/18 14:10) Patient Visit (03/22/18 ) Pt Eval Moderate Complexity (03/22/18 ) Functional Activities, Ea 15 (03/22/18 ) Patient Visit (03/22/18 ) Speech Sound Lang Comp (03/22/18 ) Cho 60g/M 1snack (16-2000 Sergio) (03/22/18 Lunch) Patient Visit (03/22/18 ) Exercise Therap, Ea 15 Min (03/22/18 ) Gait Training, Ea 15 Min (03/22/18 ) Aspirin Enteric Coated Tablet (Ecotrin T (03/23/18 09:00) Carvedilol Tablet (Coreg Tablet) (03/22/18 21:00) Fentanyl Patch (Duragesic Patch) (03/22/18 16:45) Hydrocodone/Apap 10/325 Tablet (Lortab 1 (03/22/18 16:45) Pantoprazole Tablet (Protonix Tablet) (03/22/18 18:00) Ticagrelor Tablet (Brilinta Tablet) (03/22/18 21:00) Furosemide Tablet (Lasix Tablet) (03/22/18 16:56) Insulin Aspart (Novolog) (Novolog (Charg (03/22/18 16:45) Potassium Chloride (Tablet) (K Dur Table (03/22/18 16:45) Simvastatin Tablet (Zocor Tablet) (03/22/18 21:00) Insulin Determir (Per Unit) (Levemir (Pe (03/22/18 21:00) Senna S Tablet (Senokot S Tablet) (03/22/18 17:00) Senna S Tablet (Senokot S Tablet) (03/22/18 21:00) Polyethylene Glycol Powder Pkt (Miralax (03/22/18 21:00) Cbc With Automated Diff (03/23/18 06:00) Comprehensive Metabolic Panel (03/23/18 06:00) Enoxaparin Injection (Lovenox Injection) (03/22/18 17:00) Cyclobenzaprine Tablet (Flexeril Tablet) (03/22/18 17:00) Pharmacy Consult/Message (03/22/18 18:07) Fentanyl Patch (Duragesic Patch) (03/23/18 09:00) Patch Removal (Patch Removal) (03/23/18 09:00) Ambulate 08,12,20 (03/22/18 21:33) Sequential Compression Device 08,20 (03/22/18 21:33) Dvt/Vte Risk - Notifiy Physici 08 (03/22/18 21:33) Soap Suds Enema Until Clear (03/23/18 08:20) Patient Visit (03/23/18 ) Functional Activities, Ea 15 (03/23/18 ) Exercise Therap, Ea 15 Min (03/23/18 ) Patient Visit (03/23/18 ) Exercise Therap, Ea 15 Min (03/23/18 ) Functional Activities, Ea 15 (03/23/18 ) Consult Physician (03/24/18 08:48) Abdomen/Kub 1[place] (03/24/18 08:48) Consult Physician (03/24/18 08:52) Patient Visit (03/24/18 ) Gait Training, Ea 15 Min (03/24/18 ) Exercise Therap, Ea 15 Min (03/24/18 ) Functional Activities, Ea 15 (03/24/18 ) Therapeutic, Group (03/24/18 ) Rehab Nursing Orders: Ongoing Assess. of Function Status, Bowel Management, Fall Prevention, Fluid/Electrolyte/Nutrition Mgmt, Medication Management & Education, Management of Risks & Complications, Management of Skin Intergrity, Pain Management, Safety Management Intensity of Therapy to be met Patient to be seen: Min.3h per day/5 of 7d PT IPOC Problem List: Activity Tolerance, Functional Strength, Gait Treatment Plan: Continue Plan of Care Bed Mobility, Education, Functional Activity Gay, Functional Strength, Group Therapy, Gait, Safety, Therapeutic Exercise, Transfers Treatment Duration: Apr 06, 2018 Frequency: Modified Program (IRF) Estimated Hrs Per Day: 1.5 hours per day OT IPOC Problems: Decreased Safety Aware, Impaired Coordination, Impaired Self-Care Skills OT Treatment, Training and Edu: Yes Plan of Care: ADL Retraining, Caregiver Training, Functional Mobility, Group Exercise/Act as Ind, UE Funct Exercise/Act, UE Neuromus Re-Ed/Coord Treatment Duration: Apr 19, 2018 Frequency: At least 5 of 7 days/Wk (IRF) Estimated Hrs Per Day: 1.[address] IPOC Speech Therapy Treatment Plan: Discontinue ST Treatment Duration: Mar 22, 2018 Frequency: 1 time per week Estimated Hrs Per Day: .25 hour per day Irrigation Equipment Mechanic/Case Mgmt Irrigation Equipment Mechanic/Case Managemen: Discharge Planning Dietitian/Drum Maker Dietitian/Drum Maker to monitor nutritional status and make changes and/or recommendations as needed and work with speech pathology on dietary upgrades as the occur. Physician IPOC Medical Issues being managed closely and that require the 24 hour availability of a physician: Left hip fracture with renal cell cancer with mets Complex constipation requiring surgical consultation Medical Issues: Bowel/Bladder Function, Falls Precautions, Fluid/Electrolyte/ Nutrition Balance, Pain Management Brief Synthesis of Preadmission Screen, Post-Admission Evaluation, and Therapy Evaluations: PT for transfers and safety techniques OT for independent ADL's Medical Prognosis: Good Anticipated Length of Stay: 10 days MICHELLE BONILLA DO Mar 25, 2018 06:56
[2018-03-25 08:17] VITALS: BP 97/66
[2018-03-25] MEDS: TICAGRELOR 90 MG TABLET (BRILINTA) PO SCH ×2 (08:19→20:26)
[2018-03-25] MEDS: SENNA W/DOCUSATE (SENOKOT S) TABLET PO SCH ×2 (08:19→20:26)
[2018-03-25] MEDS: ASPIRIN E.C. 81 MG (ECOTRIN) TAB PO SCH (08:19)
[2018-03-25] MEDS: POLYETHYLENE GLYCOL 17 GM (MIRALAX) PACK PO SCH ×2 (08:19→20:27)
[2018-03-25] MEDS: PANTOPRAZOLE 40 MG (PROTONIX) TAB PO SCH ×2 (08:19→17:35)
[2018-03-25] MEDS: inSUlin DETERMIR 1 UNIT/0.01 ML (LEVEMIR) CHARGE PER UNIT SQ SCH ×2 (08:20→20:44)
[2018-03-25] MEDS: CARVEDILOL 6.25 MG (COREG) TAB PO SCH ×2 (08:26→20:27)
[2018-03-25] MEDS: HYDROcodone/APAP 10 MG/325 MG (LORTAB) TAB PO PRN ×2 (08:32→18:38)
--- NOTE | 2018-03-25 11:02 | Occupational Ther Daily Note ---
OT Current Status-Daily Note Subjective Pt seen in room, up in bed, agreeable to OT. Declined dressing due to treatment for constipation. No pain mentioned. Appearance Alert, cooperative Mental Status/Objective Therapy Code Descriptions/Definitions Functional [place] Measure: 0=Not Assessed/NA 4=Minimal Assistance 1=Total Assistance 5=Supervision or Setup 2=Maximal Assistance 6=Modified [place] 3=Moderate Assistance 7=Complete [place] ADL-Treatment Therapy Code Descriptions/Definitions Functional [place] Measure: 0=Not Assessed/NA 4=Minimal Assistance 1=Total Assistance 5=Supervision or Setup 2=Maximal Assistance 6=Modified [place] 3=Moderate Assistance 7=Complete [place] Therapy Quality Codes: 6 Independent with activity with or without an assistive device 5 Patient requires set up or clean up by helper. Patient completes activity by themselves 4 Supervision or touching assist (CGA). [place] provide cues , steadying assist 3 The helper provides less than half the effort to complete the activity 2 The helper provides more than half the effort to complete the activity 1 Dependent. The helper does all the effort to complete an activity 7 Patient refused to complete or attempt activity 9 The patient did not perform the activity before the current illness or injury 88 Not attempted due to Medical conditions or safety concerns Other Treatment Pt education in 5 different bilat UE exercises to strengthen arms to help with transfers. Pt completed 12 reps each exercise with yellow theraband, with occasional physical assistance to do each exercise correctly. Pt provided with written instructions for the 5 exercises and was able to return demo each exercise, with a few cues. pt encouraged to do these on her own in her room. She reported some discomfort with L shoulder with one exercise and was able to adjust number of repetitions so that she did not have pain. She reportedly fell on this shoulder but said that there were no breaks there. Pt left up in bed, all needs met, 3 rails up. Education OT Patient Education: Exercise program, Purpose of tx/functional activities Teaching Recipient: Patient Teaching Methods: Demonstration, Discussion Response to Teaching: Verbalize Understanding, Return Demonstration, Reinforcement Needed OT Short Term Goals Short Term Goals Time Frame: Apr 05, 2018 Eating(FIM): 6 Grooming(FIM): 6 Bathing(FIM): 5 Bathing Location: L Arm, R Arm, L Upper Leg, R Upper Leg, L Lower Leg ( including foot), R Lower Leg (including foot), Chest, Abdomen, Buttocks, Perineal Area Upper Body Dressing(FIM): 7 Lower Body Dressing(FIM): 6 Toileting(FIM): 6 Transfers (B,C,W/C) (FIM): 7 Toilet/Commode Transfer(FIM): 7 Tub Transfer(FIM): 2 Shower Transfer(FIM): 7 Additional Short Term Goals: 1-Demonstrate ADL Tasks, 2-Verbalize Understanding , 3-ImproveStrength/Gay 1=Demonstrate adherence to instructed precautions during ADL tasks. 2=Patient will verbalize/demonstrate understanding of assistive devices/ modifications for ADL. 3=Patient will improve strength/tolerance for activity to enable patient to perform ADL's. OT Fpc Goals Fpc Goals Time Frame: Apr 19, 2018 Eating (FIM): 7 Eating (QC): 6 Groomin Oral Hygiene (QC): 6 Bathing(FIM): 6 Bathing Location: L Arm, R Arm, L Upper Leg, R Upper Leg, L Lower Leg ( including foot), R Lower Leg (including foot), Chest, Abdomen, Buttocks, Perineal Area Shower/Bathe Self (QC): 6 Upper Body Dressing(FIM): 7 Upper Body Dressing (QC): 6 Lower Body Dressing(FIM): 6 Lower Body Dressing (QC): 6 On/Off Footwear (QC): 6 Toileting(FIM): 6 Toileting Hygiene (QC): 6 Transfers (B,C,W/C) (FIM): 6 Toilet/Commode Transfer(FIM): 6 Toilet/Commode Transfer (QC): 6 Tub Transfer(FIM): 6 Shower Transfer(FIM): 6 Additional Goals: 1-Demonstrate ADL Tasks, 2-Verbalize Understanding, 3- ImproveStrength/Gay 1=Demonstrate adherence to instructed precautions during ADL tasks. 2=Patient will verbalize/demonstrate understanding of assistive devices/ modifications for ADL. 3=Patient will improve strength/tolerance for activity to enable patient to perform ADL's. OT Education/Plan Discharge Recommendations Plan/Recommendations: Continue POC Treatment Plan/Plan of Care Patient would benefit from OT for education, treatment and training to promote independence in ADL's, mobility, safety and/or upper extremity function for ADL' s. Plan of Care: ADL Retraining, Caregiver Training, Functional Mobility, Group Exercise/Act as Ind, UE Funct Exercise/Act, UE Neuromus Re-Ed/Coord Treatment Duration: Apr 19, 2018 Frequency: At least 5 of 7 days/Wk (IRF) Estimated Hrs Per Day: 1.5 hours per day Agreement: Yes Rehab Potential: Good Time/GCodes Start Time: 10:00 Stop Time: 10:25 Total Time Billed (hr/min): 25 Billed Treatment Time visit, 25 minutes exercise CHRISTOPHER ROTH OT Mar 25, 2018 11:02
--- NOTE | 2018-03-25 11:06 | NUR ---
Dr. Potts to floor. Notified that Coreg was held this AM D/T hypotension.
--- NOTE | 2018-03-25 11:45 | Physical Therapy Daily Note ---
PT Daily Note-Current Subjective Pt up in chair and ready to complete her therapy. Transfers Therapy Code Descriptions/Definitions Functional [place] Measure: 0=Not Assessed/NA 4=Minimal Assistance 1=Total Assistance 5=Supervision or Setup 2=Maximal Assistance 6=Modified [place] 3=Moderate Assistance 7=Complete [place] Therapy Quality Codes: 6 Independent with activity with or without an assistive device 5 Patient requires set up or clean up by helper. Patient completes activity by themselves 4 Supervision or touching assist (CGA). [place] provide cues , steadying assist 3 The helper provides less than half the effort to complete the activity 2 The helper provides more than half the effort to complete the activity 1 Dependent. The helper does all the effort to complete an activity 7 Patient refused to complete or attempt activity 9 The patient did not perform the activity before the current illness or injury 88 Not attempted due to Medical conditions or safety concerns Transfers (B, C, W/C) (FIM): 5 Weight Bearing Right Lower Extremity: Right Full Weight Bearing Left Lower Extremity: Left Weight Bearing/Tolerated Gait Training Gait (FIM): 5 Distance: 300 Gait Assistive Device: FWW Gait training with FWW 300ft SBA. Exercises Supine Ex: LE Protocol Supine Reps: 15 Assessment Pt is making progress toward riprap placer goals. Demonstrated improved ambulation distance this session. PT Short Term Goals Short Term Goals Time Frame: Mar 29, 2018 Transfers (B,C,W/C) (FIM): 7 Gait (FIM): 5 Distance (FIM): 3=150 ft Gait Assistive Device: FWW Stairs (FIM): 2 # of Steps: 4 PT Van Cdl Driver Goals Van Cdl Driver Goals PT [place] Driver Goals Time Frame: Apr 06, 2018 Transfers (B,C,W/C) (FIM): 6 Sit to Lying (QC): 6 Lying-Sitting on Side/Bed(QC): 6 Sit to Stand (QC): 6 Roll Left to Right (QC): 6 Chair/Vob-hw-Cejfq Xfer(QC): 6 Car Transfer (QC): 6 Does the Patient Walk: Yes Gait (FIM): 6 Walk 10 feet (QC): 6 Walk 10ft-Uneven Surface(QC): 6 Walk 50ft with 2 Turns (QC): 6 Walk 150 ft (QC): 6 Gait Assistive Device: FWW Does the Pt use WC or Scooter?: No Stairs (FIM): 5 (household) # of Steps: 4 1 Step (curb) (QC): 6 4 Steps (QC): 6 12 Steps (QC): 88 Picking up an Object (QC): 88 PT Plan Treatment/Plan Treatment Plan: Continue Plan of Care Treatment Plan: Bed Mobility, Education, Functional Activity Gay, Functional Strength, Group Therapy, Gait, Safety, Therapeutic Exercise, Transfers Treatment Duration: Apr 06, 2018 Frequency: Modified Program (IRF) Estimated Hrs Per Day: 1.5 hours per day Patient and/or Family Agrees t: Yes Time/GCodes Time In: 905 Time Out: 935 Total Billed Treatment Time: 30 Total Billed Treatment visit, gait 15 min, ex 15 min CANDIE PARTIDA PT Mar 25, 2018 11:45
--- NOTE | 2018-03-25 12:04 | Progress Note (SOAP) ---
Subjective Date Seen by a Provider: Mar 25, 2018 Time Seen by a Provider: 11:15 Subjective/Events-last exam Patient seen with Dr. Clements. Patient report doing well but has still not had a BM in a couple days. Does report episodes of nausea but has not vomited for a few days. Minimal abdominal tenderness. No fever/chills. Objective Exam Vital Signs Date Time Temp Pulse Resp B/P (MAP) Pulse Ox O2 Delivery O2 Flow Rate FiO2 03/25/18 08:50 Room Air 03/25/18 08:17 76 97/66 (76) 03/25/18 06:00 97.8 80 18 93 Room Air 03/24/18 18:39 97.2 88 16 92/56 (68) 97 Room Air 03/24/18 12:19 92 97/66 (76) I & O 03/25/18 07:00 Intake Total 1120 ml Balance 1120 ml Capillary Refill : General Appearance: No Apparent Distress, WD/WN Neck: Full Range of Motion, Normal Inspection, Non Tender, Supple Respiratory: Lungs Clear, Normal Breath Sounds, No Accessory Muscle Use, No Respiratory Distress Cardiovascular: Regular Rate, Rhythm, No Edema Gastrointestinal: soft, tenderness Extremity: Normal Capillary Refill, No Calf Tenderness Neurologic/Psychiatric: Alert, Oriented x3 Skin: Normal Color, Warm/Dry Results Lab Laboratory Tests 03/24/18 14:20: Glucometer 162H 03/24/18 15:56: Glucometer 125H 03/24/18 20:39: Glucometer 158H 03/25/18 05:41: Glucometer 150H 03/25/18 11:12: Glucometer 198H Assessment/Plan Assessment/Plan Assess & Plan/Chief Complaint A 62-year-old female with constipation secondary to opioid pain medication, as well as metastatic renal cell cancer. Currently taking stool softners and MiraLax BID. Will add dulcolax supp. Clinical Quality Measures DVT/VTE Risk/Contraindication: Risk Factor Score Per Nursin RFS Level Per Nursing on Admit: 2=Moderate GILBERT LENTZ DOCTOR OF RADIOLOGY Mar 25, 2018 12:03
[2018-03-25] MEDS ORDERED: BISACODYL 10 MG SUPP (DULCOLAX) PR NR (12:15)
--- NOTE | 2018-03-25 13:47 | Cardiology Progress Note ---
Cardiology SOAP Progress Note Subjective: Cardiac complaints. Objective: I&O/Vital Signs 03/25/18 03/25/18 03/25/18 06:00 08:17 08:50 Temp 97.8 Pulse 80 76 Resp 18 B/P (MAP) 97/66 (76) Pulse Ox 93 O2 Delivery Room Air Room Air 03/25/18 00:00 Intake Total 1020 ml Balance 1020 ml Weight (Pounds): 173 Weight (Ounces): 2.0 Weight (Calculated Kilograms): [id number] Constitutional: appears stated age, AAO x 3; No apparent distress; well- developed, well-nourished Respiratory: No accessory muscle use, No respiratory distress, No chest tender , No chest expansion is symmetric; chest is bilaterally symmetric; No lungs clear to percussion; lungs clear to auscultation; No crackles, No rhonchi, No rales, No stridor, No wheezing, No pleural rub, No other Cardiovascular: regular rate-rhythm; No irregularly irregular, No extra beats, No parasternal heave is noted, No JVD, No edema, No bradycardia, No tachycardia , No point of maximal impulse, No cardiac thrills are palpable; S1 and S2; No gallop/S3, No gallop/S4, No diastolic murmur, No systolic murmur, No friction rub, No click, No other Gastrointestional: No tender, No soft, No round, No distended, No pulsatile mass, No organomegaly, No guarding, No rebound, No tenderness, No hernia, No mass, No audible bowel sounds, No abnormal bowel sounds, No abdominal bruits, No spleenomegaly, No other Extremities: No normal range of motion, No non-tender, No normal inspection, No pedal edema, No calf tenderness, No normal capillary refill, No pelvis stable , No calf tenderness, No inflammation, No pedal edema, No slow capillary refill , No swelling, No other, No abrasion, No clubbing, No cyanosis, No ecchymosis, No laceration, No no lower extremity edema bilateral, No significant edema, No tenderness, No wound Neurologic/Psychiatric: no motor/sensory deficits, alert, normal mood/affect, oriented x 3, power is 5/5 both on sides Skin: No normal color, No warm/dry, No cyanosis, No cool, No diaphoresis, No damp, No ecchymosis, No jaundice, No mottled, No pallor, No rash, No tattoos/ piercings, No ulcerations, No rash on exposed areas, No ulcerations on exposed areas, No other Results/Procedures: Labs Laboratory Tests 03/24/18 14:20: Glucometer 162H 03/24/18 15:56: Glucometer 125H 03/24/18 20:39: Glucometer 158H 03/25/18 05:41: Glucometer 150H 03/25/18 11:12: Glucometer 198H A/P: Assessment/Dx: Hip fracture, inpatient rehabilitation, History of [place]/CAD/PCI, Hyperlipidemia, Hypertension, History of renal cell carcinoma. Plan: Hip fracture, inpatient rehabilitation, History of [place]/CAD/PCI, continue dual antiplatelet therapy with aspirin and Brilinta. Continue statin and beta lindsay. Hyperlipidemia, pravastatin. Hypertension, carvedilol. History of renal cell carcinoma. Thank you for your consultation. Please call me if you have any questions. Anton Potts MD, FACP, FACC, FSCAI, FHRS, CCDS Interventional Cardiology Cardiac Electrophysiology Vascular Medicine and Endovascular Interventions Velma POTTS MD Mar 25, 2018 13:47
--- NOTE | 2018-03-25 14:10 | PM&R Progress Note ---
Subjective HPI/CC On Admission Date Seen by Provider: Mar 25, 2018 Time Seen by Provider: 12:15 CC: Left hip fracture recovery HPI: This is a 62-year-old white female with a known history of renal cell carcinoma managed by Dr. Herb Wilcox oncology at [facility] whose primary care provider is Dr. Evelio barrow Gilbert who presents to inpatient rehabilitation for aggressive therapy following a left hip fracture. Apparently she sustained a fall suffered a left hip fracture and had an uncomplicated repair at [facility]. She had recent coronary artery stent placement maintained on Brilinta and patient was monitored closely for any recurrence of acute coronary syndrome. I have reviewed and restarted all of her home medication including Lovenox for DVT prophylaxis of 40 mg subcutaneous daily. Patient reports pain is controlled currently and is ready to start her therapies. Subjective/Events-last exam Bowels are still not moving and Dr. Clements consultation is on board and maintain on bowel regimen We'll attempt soapsuds enema again today and she is willing to do that Coreg is held due to mild hypotension Buttocks are sore from being in bed so will initiate air mattress or some sort of other protection to prevent decubitus ulcers Review of Systems Gastrointestinal: Constipation Objective Exam Vital Signs Vital Signs Date Time Temp Pulse Resp B/P (MAP) Pulse Ox O2 Delivery O2 Flow Rate FiO2 03/25/18 08:50 Room Air 03/25/18 08:17 76 97/66 (76) 03/25/18 06:00 97.8 18 93 Capillary Refill : General Appearance: No Apparent Distress, WD/WN, Chronically ill Respiratory: Chest Non Tender, Lungs Clear, Normal Breath Sounds, No Accessory Muscle Use, No Respiratory Distress Cardiovascular: Regular Rate, Rhythm, No Edema, No Gallop, No JVD, No Murmur, Normal Peripheral Pulses Neurologic/Psychiatric: Alert, Oriented x3, No Motor/Sensory Deficits, Normal Mood/Affect Results/Procedures Lab Patient resulted labs reviewed. Assessment/Plan Assessment and Plan Assess & Plan/Chief Complaint Assessment: Debility following left hip fracture Renal cell carcinoma with metastases to the bone and lung Diabetes mellitus insulin-dependent CAD with recent stent placement on Brilinta managed by Dr. Keith at [place] Chronic pain on fentanyl patch Acute constipation needs another SSE and Dr. Clements consultations appreciated and noted x-ray showing left colon constipation Chronic lower extremity edema Hyperlipidemia Stomach ulcers 2 weeks ago requiring surgical intervention Anemia Stage I pressure ulcer coccyx Plan: Start aggressive therapy Pain control Home meds Cardiology consult Maintain Brilinta Lovenox for DVT prophylaxis Constipation treatment with another SSE today Air mattress Diagnosis/Problems Diagnosis/Problems (1) Closed left hip fracture Status: Acute Qualifiers: Encounter type: subsequent encounter Fracture healing: with routine healing Qualified Codes: S72.002D - Fracture of unspecified part of neck of left femur, subsequent encounter for closed fracture with routine healing (2) Constipation Qualifiers: Constipation type: slow transit constipation Qualified Codes: K59.01 - Slow transit constipation (3) Metastatic renal cell carcinoma to bone Status: Chronic (4) Diabetes mellitus Status: Chronic Qualifiers: Diabetes mellitus type: type 2 Diabetes mellitus terminal operator insulin use: with terminal operator use Diabetes mellitus complication status: with circulatory complication Diabetes mellitus complication detail: with other circulatory complications Qualified Codes: E11.59 - Type 2 diabetes mellitus with other circulatory complications; Z79.4 - half-way (current) use of insulin (5) Edema Status: Chronic Qualifiers: Edema type: localized Qualified Codes: R60.0 - Localized edema (6) GERD (gastroesophageal reflux disease) Status: Chronic Qualifiers: Esophagitis presence: without esophagitis Qualified Codes: K21.9 - Gastro- esophageal reflux disease without esophagitis (7) Chronic pain Status: Chronic Qualifiers: Chronic pain type: due to neoplasm Qualified Codes: G89.3 - Neoplasm related pain (acute) (chronic) (8) DVT prophylaxis Status: Acute (9) Myocardial infarct, old Status: Chronic (10) Stomach ulcer Status: Chronic Qualifiers: Gastric ulcer chronicity: unspecified ulcer chronicity Gastric ulcer complication status: unspecified whether hemorrhage or perforation present Qualified Codes: K25.9 - Gastric ulcer, unspecified as acute or chronic, without hemorrhage or perforation (11) CAD (coronary artery disease) Status: Chronic Qualifiers: Coronary Disease-Associated Artery/Lesion type: [place] artery [place] vs. transplanted heart: [place] heart Associated angina: without angina Qualified Codes: I25.10 - Atherosclerotic heart disease of [place] coronary artery without angina pectoris (12) Hip fracture requiring operative repair Status: Acute Qualifiers: Encounter type: subsequent encounter Fracture type: closed Laterality: left Fracture healing: with routine healing Qualified Codes: S72.002D - Fracture of unspecified part of neck of left femur, subsequent encounter for closed fracture with routine healing (13) Pressure injury of coccygeal region, stage 1 Status: Acute Assessment & Plan: air mattress Clinical Quality Measures DVT/VTE Risk/Contraindication: Risk Factor Score Per Nursin RFS Level Per Nursing on Admit: 2=Moderate MICHELLE BONILLA DO Mar 25, 2018 14:10
[2018-03-25] MEDS: MENTHOL/ZINC OXIDE (CALMOSEPTINE) 113 GM TUBE TOP SCH ×2 (14:22→20:31)
--- NOTE | 2018-03-25 15:00 | NUR ---
Dulcolax suppository given with VERY small results.
[2018-03-25 16:23] VITALS: BP 116/70
[2018-03-25] MEDS: ENOXAPARIN 40 MG/0.4 ML (LOVENOX) SYR SC SCH (17:36)
--- NOTE | 2018-03-25 18:47 | NUR ---
Soap suds enema given. Patient unable to hold. Almost immediately expels.
[2018-03-25] MEDS: SIMvastatin 20 MG (ZOCOR) TAB PO SCH (20:27)
--- NOTE | 2018-03-25 20:40 | NUR ---
2029 Finger stick blood sugar 68, snack containing protein, glucose and carbohydrates given. Pt has Levemir 20 units SC scheduled for 2099. Dr. Granados notified. New order to hold Levemir insulin and all other insulins until Dr. Granados see the patient. 2114 Finger stick blood sugar 80, will continue monitoring.
[2018-03-26 06:18] VITALS: BP 95/62
[2018-03-26 08:08] VITALS: BP 97/65
[2018-03-26] MEDS: TICAGRELOR 90 MG TABLET (BRILINTA) PO SCH ×2 (08:11→21:30)
[2018-03-26] MEDS: PANTOPRAZOLE 40 MG (PROTONIX) TAB PO SCH ×2 (08:11→17:21)
[2018-03-26] MEDS: SENNA W/DOCUSATE (SENOKOT S) TABLET PO SCH ×2 (08:11→21:30)
[2018-03-26] MEDS: CARVEDILOL 6.25 MG (COREG) TAB PO SCH (08:11)
[2018-03-26] MEDS: ASPIRIN E.C. 81 MG (ECOTRIN) TAB PO SCH (08:11)
[2018-03-26] MEDS: POLYETHYLENE GLYCOL 17 GM (MIRALAX) PACK PO SCH ×2 (08:12→21:30)
[2018-03-26] MEDS: inSUlin DETERMIR 1 UNIT/0.01 ML (LEVEMIR) CHARGE PER UNIT SQ SCH ×2 (08:13→21:30)
[2018-03-26] MEDS: MENTHOL/ZINC OXIDE (CALMOSEPTINE) 113 GM TUBE TOP SCH ×3 (08:13→21:31)
[2018-03-26] MEDS: ONDANSETRON 4 MG (ZOFRAN) ORAL DISSOLVE TAB PO PRN (08:54)
[2018-03-26] MEDS: fentaNYL PATCH 25 MCG (DURAGESIC) TD SCH (08:55)
[2018-03-26] MEDS: FENTANYL PATCH REMOVAL TP SCH (08:57)
--- NOTE | 2018-03-26 09:47 | Progress Note (SOAP) ---
Subjective Date Seen by a Provider: Mar 26, 2018 Time Seen by a Provider: 09:43 Subjective/Events-last exam doing ok. did have significant soft mixed with hard BM this am. did develop mild nausea. no abdominal distention. Objective Exam Vital Signs Date Time Temp Pulse Resp B/P (MAP) Pulse Ox O2 Delivery O2 Flow Rate FiO2 03/26/18 08:08 92 97/65 (76) 98 Room Air 03/26/18 06:18 98.2 80 18 95/62 (73) 98 Room Air 03/25/18 21:00 Room Air 03/25/18 16:23 97.2 83 16 116/70 (85) 97 Room Air I & O 03/26/18 07:00 Intake Total 1150 ml Balance 1150 ml Capillary Refill : General Appearance: No Apparent Distress HEENT: PERRL/EOMI Neck: Full Range of Motion Respiratory: Chest Non Tender, Lungs Clear Cardiovascular: Regular Rate, Rhythm Gastrointestinal: normal bowel sounds, non tender, soft Extremity: Normal Capillary Refill Neurologic/Psychiatric: Alert, Oriented x3 Skin: Normal Color Lymphatic: No Adenopathy Results Lab Laboratory Tests 03/25/18 11:12: Glucometer 198H 03/25/18 16:22: Glucometer 89 03/25/18 20:36: Glucometer 68L 03/25/18 21:14: Glucometer 80 03/26/18 00:26: Glucometer 115H 03/26/18 05:28: Glucometer 168H Assessment/Plan Assessment/Plan Assess & Plan/Chief Complaint constipation secondary chronic opioid secondary metastatic renal cell cancer and recent pathologic left hip fx. start IV reglan. continue miralax BID. Clinical Quality Measures DVT/VTE Risk/Contraindication: Risk Factor Score Per Nursin RFS Level Per Nursing on Admit: 2=Moderate JELENA ORR MD Mar 26, 2018 09:46
[2018-03-26] MEDS: METOCLOPRAMIDE INJ 10 MG/2 ML (REGLAN) IVP SCH ×2 (12:03→17:21)
--- NOTE | 2018-03-26 12:57 | PM&R Progress Note ---
Subjective HPI/CC On Admission Date Seen by Provider: Mar 26, 2018 Time Seen by Provider: 11:20 CC: Left hip fracture recovery HPI: This is a 62-year-old white female with a known history of renal cell carcinoma managed by Dr. Herb Wilcox oncology at [facility] whose primary care provider is Dr. Evelio Beyer who presents to inpatient rehabilitation for aggressive therapy following a left hip fracture. Apparently she sustained a fall suffered a left hip fracture and had an uncomplicated repair at [facility]. She had recent coronary artery stent placement maintained on Brilinta and patient was monitored closely for any recurrence of acute coronary syndrome. I have reviewed and restarted all of her home medication including Lovenox for DVT prophylaxis of 40 mg subcutaneous daily. Patient reports pain is controlled currently and is ready to start her therapies. Subjective/Events-last exam Having 2 small bowel movements Nausea continues Reglan ordered by Dr. Starr leyva helping buttocks Calmoseptine ordered Review of Systems Gastrointestinal: Nausea, Constipation Musculoskeletal: back pain Objective Exam Vital Signs Vital Signs Date Time Temp Pulse Resp B/P (MAP) Pulse Ox O2 Delivery O2 Flow Rate FiO2 03/26/18 09:59 Room Air 03/26/18 08:08 92 97/65 (76) 98 03/26/18 06:18 98.2 18 Capillary Refill : General Appearance: No Apparent Distress, WD/WN, Chronically ill, Thin Respiratory: Chest Non Tender, Lungs Clear, Normal Breath Sounds, No Accessory Muscle Use, No Respiratory Distress Cardiovascular: Regular Rate, Rhythm, No Edema, No Gallop, No JVD, No Murmur, Normal Peripheral Pulses Neurologic/Psychiatric: Alert, Oriented x3, No Motor/Sensory Deficits, Normal Mood/Affect Results/Procedures Lab Patient resulted labs reviewed. Assessment/Plan Assessment and Plan Assess & Plan/Chief Complaint Assessment: Debility following left hip fracture Renal cell carcinoma with metastases to the bone and lung Diabetes mellitus insulin-dependent CAD with recent stent placement on Brilinta managed by Dr. Keith at [facility] Chronic pain on fentanyl patch Acute constipation needs another SSE and Dr. Clements consultations appreciated and noted x-ray showing left colon constipation now on Reglan and multiple meds and some results Chronic lower extremity edema Hyperlipidemia Stomach ulcers 2 weeks ago requiring surgical intervention Anemia Stage I pressure ulcer coccyx placed on air mattress and Calmoseptine Nausea placed on Reglan Plan: Start aggressive therapy Pain control Home meds Cardiology consult Maintain Brilinta Lovenox for DVT prophylaxis Constipation treatment with another SSE today Air mattress Reglan for nausea Diagnosis/Problems Diagnosis/Problems (1) Closed left hip fracture Status: Acute Qualifiers: Encounter type: subsequent encounter Fracture healing: with routine healing Qualified Codes: S72.002D - Fracture of unspecified part of neck of left femur, subsequent encounter for closed fracture with routine healing (2) Constipation Qualifiers: Constipation type: slow transit constipation Qualified Codes: K59.01 - Slow transit constipation (3) Metastatic renal cell carcinoma to bone Status: Chronic (4) Diabetes mellitus Status: Chronic Qualifiers: Diabetes mellitus type: type 2 Diabetes mellitus termite control representative insulin use: with termite control representative use Diabetes mellitus complication status: with circulatory complication Diabetes mellitus complication detail: with other circulatory complications Qualified Codes: E11.59 - Type 2 diabetes mellitus with other circulatory complications; Z79.4 - correction (current) use of insulin (5) Edema Status: Chronic Qualifiers: Edema type: localized Qualified Codes: R60.0 - Localized edema (6) GERD (gastroesophageal reflux disease) Status: Chronic Qualifiers: Esophagitis presence: without esophagitis Qualified Codes: K21.9 - Gastro- esophageal reflux disease without esophagitis (7) Chronic pain Status: Chronic Qualifiers: Chronic pain type: due to neoplasm Qualified Codes: G89.3 - Neoplasm related pain (acute) (chronic) (8) DVT prophylaxis Status: Acute (9) Myocardial infarct, old Status: Chronic (10) Stomach ulcer Status: Chronic Qualifiers: Gastric ulcer chronicity: unspecified ulcer chronicity Gastric ulcer complication status: unspecified whether hemorrhage or perforation present Qualified Codes: K25.9 - Gastric ulcer, unspecified as acute or chronic, without hemorrhage or perforation (11) CAD (coronary artery disease) Status: Chronic Qualifiers: Coronary Disease-Associated Artery/Lesion type: [place] artery [place] vs. transplanted heart: [place] heart Associated angina: without angina Qualified Codes: I25.10 - Atherosclerotic heart disease of [place] coronary artery without angina pectoris (12) Hip fracture requiring operative repair Status: Acute Qualifiers: Encounter type: subsequent encounter Fracture type: closed Laterality: left Fracture healing: with routine healing Qualified Codes: S72.002D - Fracture of unspecified part of neck of left femur, subsequent encounter for closed fracture with routine healing (13) Pressure injury of coccygeal region, stage 1 Status: Acute Assessment & Plan: air mattress Clinical Quality Measures DVT/VTE Risk/Contraindication: Risk Factor Score Per Nursin RFS Level Per Nursing on Admit: 2=Moderate MICHELLE BONILLA DO Mar 26, 2018 12:57
--- NOTE | 2018-03-26 14:33 | NUR ---
Dr. Potts here to see the patient. Informed of hypotension again this AM and C/O lightheadedness. Orders to DC Coreg and start Metoprolol- 12.5 MG PO BID.
--- NOTE | 2018-03-26 15:09 | Cardiology Progress Note ---
Cardiology SOAP Progress Note Subjective: No cardiac complaint. Objective: I&O/Vital Signs 03/26/18 03/26/18 03/26/18 06:18 08:08 09:59 Temp 98.2 Pulse 80 92 Resp 18 B/P (MAP) 95/62 (73) 97/65 (76) Pulse Ox 98 98 O2 Delivery Room Air Room Air Room Air 03/26/18 00:00 Intake Total 500 ml Balance 500 ml Weight (Pounds): 173 Weight (Ounces): 2.0 Weight (Calculated Kilograms): 78.932108 Constitutional: appears stated age, AAO x 3; No apparent distress; well- developed, well-nourished Respiratory: No accessory muscle use, No respiratory distress, No chest tender , No chest expansion is symmetric; chest is bilaterally symmetric; No lungs clear to percussion; lungs clear to auscultation; No crackles, No rhonchi, No rales, No stridor, No wheezing, No pleural rub, No other Cardiovascular: regular rate-rhythm; No irregularly irregular, No extra beats, No parasternal heave is noted, No JVD, No edema, No bradycardia, No tachycardia , No point of maximal impulse, No cardiac thrills are palpable; S1 and S2; No gallop/S3, No gallop/S4, No diastolic murmur, No systolic murmur, No friction rub, No click, No other Gastrointestional: No tender, No soft, No round, No distended, No pulsatile mass, No organomegaly, No guarding, No rebound, No tenderness, No hernia, No mass, No audible bowel sounds, No abnormal bowel sounds, No abdominal bruits, No spleenomegaly, No other Extremities: No normal range of motion, No non-tender, No normal inspection, No pedal edema, No calf tenderness, No normal capillary refill, No pelvis stable , No calf tenderness, No inflammation, No pedal edema, No slow capillary refill , No swelling, No other, No abrasion, No clubbing, No cyanosis, No ecchymosis, No laceration, No no lower extremity edema bilateral, No significant edema, No tenderness, No wound Neurologic/Psychiatric: no motor/sensory deficits, alert, normal mood/affect, oriented x 3, power is 5/5 both on sides Skin: No normal color, No warm/dry, No cyanosis, No cool, No diaphoresis, No damp, No ecchymosis, No jaundice, No mottled, No pallor, No rash, No tattoos/ piercings, No ulcerations, No rash on exposed areas, No ulcerations on exposed areas, No other Results/Procedures: Labs Laboratory Tests 03/25/18 16:22: Glucometer 89 03/25/18 20:36: Glucometer 68L 03/25/18 21:14: Glucometer 80 03/26/18 00:26: Glucometer 115H 03/26/18 05:28: Glucometer 168H 03/26/18 11:29: Glucometer 256H A/P: Assessment/Dx: Hip fracture, inpatient rehabilitation, History of CT/CAD/PCI, Borderline hypotension. Hyperlipidemia, Hypertension, History of renal cell carcinoma. Plan: Hip fracture, inpatient rehabilitation, History of CT/CAD/PCI, continue dual antiplatelet therapy with aspirin and Brilinta. Continue statin and beta lindsay. Borderline hypertension, DC carvedilol. Will switch to low dose metoprolol. Hyperlipidemia, pravastatin. Hypertension, carvedilol. History of renal cell carcinoma. Thank you for your consultation. Please call me if you have any questions. Anton Potts MD, FACP, FACC, FSCAI, FHRS, CCDS Interventional Cardiology Cardiac Electrophysiology Vascular Medicine and Endovascular Interventions Velma POTTS MD Mar 26, 2018 3:09 pm
[2018-03-26] MEDS: HYDROcodone/APAP 10 MG/325 MG (LORTAB) TAB PO PRN (16:09)
[2018-03-26] MEDS: ENOXAPARIN 40 MG/0.4 ML (LOVENOX) SYR SC SCH (16:10)
[2018-03-26 16:44] VITALS: BP 96/61
[2018-03-26] MEDS: SIMvastatin 20 MG (ZOCOR) TAB PO SCH (21:29)
[2018-03-26] MEDS: MELATONIN 3 MG TABLET PO PRN (21:30)
[2018-03-26] MEDS: meTOprolol TARTRATE 25 MG (LOPRESSOR) TABLET PO SCH (21:30)
[2018-03-26] MEDS: CYCLOBENZAPRINE 10 MG (FLEXERIL) TAB PO PRN (21:45)
[2018-03-27] MEDS: METOCLOPRAMIDE INJ 10 MG/2 ML (REGLAN) IVP SCH ×4 (00:33→17:30)
[2018-03-27 06:00] VITALS: BP 105/65
[2018-03-27] MEDS: ASPIRIN E.C. 81 MG (ECOTRIN) TAB PO SCH (07:38)
[2018-03-27] MEDS: PANTOPRAZOLE 40 MG (PROTONIX) TAB PO SCH ×2 (07:38→17:22)
[2018-03-27] MEDS: HYDROcodone/APAP 10 MG/325 MG (LORTAB) TAB PO PRN ×2 (07:38→14:34)
[2018-03-27] MEDS: POLYETHYLENE GLYCOL 17 GM (MIRALAX) PACK PO SCH ×2 (07:39→20:35)
[2018-03-27] MEDS: meTOprolol TARTRATE 25 MG (LOPRESSOR) TABLET PO SCH ×2 (07:39→20:33)
[2018-03-27] MEDS: TICAGRELOR 90 MG TABLET (BRILINTA) PO SCH ×2 (07:39→20:34)
[2018-03-27] MEDS: SENNA W/DOCUSATE (SENOKOT S) TABLET PO SCH ×2 (07:40→20:35)
[2018-03-27] MEDS: MENTHOL/ZINC OXIDE (CALMOSEPTINE) 113 GM TUBE TOP SCH ×3 (07:41→20:35)
--- NOTE | 2018-03-27 08:42 | Occupational Ther Daily Note ---
OT Current Status-Daily Note Subjective Pt alert, sitting on toilet. Pt agrees to therapy. C/o pain, reported to nrsg. Mental Status/Objective Patient Orientation: Person, Place, Time, Situation Therapy Code Descriptions/Definitions Functional [place] Measure: 0=Not Assessed/NA 4=Minimal Assistance 1=Total Assistance 5=Supervision or Setup 2=Maximal Assistance 6=Modified [place] 3=Moderate Assistance 7=Complete [place] Attachments: Other-See Comments ADL-Treatment Therapy Code Descriptions/Definitions Functional [place] Measure: 0=Not Assessed/NA 4=Minimal Assistance 1=Total Assistance 5=Supervision or Setup 2=Maximal Assistance 6=Modified [place] 3=Moderate Assistance 7=Complete [place] Therapy Quality Codes: 6 Independent with activity with or without an assistive device 5 Patient requires set up or clean up by helper. Patient completes activity by themselves 4 Supervision or touching assist (CGA). [place] provide cues , steadying assist 3 The helper provides less than half the effort to complete the activity 2 The helper provides more than half the effort to complete the activity 1 Dependent. The helper does all the effort to complete an activity 7 Patient refused to complete or attempt activity 9 The patient did not perform the activity before the current illness or injury 88 Not attempted due to Medical conditions or safety concerns Grooming (FIM): 6 (Standing at sink with FWW, pt able to complete.) Oral Hygiene (QC): 6 Bathing (FIM): 5 (Supervision using long handle sponge, shower seat, grabbars and hand held shower.) Bathing Location: L Arm, R Arm, L Upper Leg, R Upper Leg, L Lower Leg ( including foot), R Lower Leg (including foot), Chest, Abdomen, Buttocks, Perineal Area Shower/Bathe Self (QC): 4 Upper Body (FIM): 5 (Set up. Pt dons/doffs hospital gown and ties in back by self.) Upper Body Dressing (QC): 5 Lower Body Dressing (FIM): 5 (Set up and education with AE for lower body equipment. Pt able to dress lower body with supervision.) Lower Body Dressing (QC): 4 On/Off Footwear (QC): 5 Toileting (FIM): 5 (Supervision. Pt completes by self.) Toileting Hygiene (QC): 4 Transfers (B, C, W/C) (FIM): 5 (Using FWW.) Toilet/Commode Transfer (FIM): 5 (Supervision using FWW, BSC and grabbar.) Toilet Transfer (QC): 4 Shower Transfer(FIM): 5 (Using FWW, shower seat and grabbars.) Other Treatment Pt completed arm bike for 10 min at 20 daigle resistance to increase strength and activity tolerance for daily functional tasks. After therapy, pt sitting in recliner with call light/phone in reach. All needs met in room. Education OT Patient Education: Modified ADL techniques, Use of adapted equipment Teaching Recipient: Patient Teaching Methods: Demonstration, Discussion Response to Teaching: Verbalize Understanding, Return Demonstration OT Short Term Goals Short Term Goals Time Frame: Apr 05, 2018 Eating(FIM): 6 Grooming(FIM): 6 Bathing(FIM): 5 Bathing Location: L Arm, R Arm, L Upper Leg, R Upper Leg, L Lower Leg ( including foot), R Lower Leg (including foot), Chest, Abdomen, Buttocks, Perineal Area Upper Body Dressing(FIM): 7 Lower Body Dressing(FIM): 6 Toileting(FIM): 6 Transfers (B,C,W/C) (FIM): 7 Toilet/Commode Transfer(FIM): 7 Tub Transfer(FIM): 2 Shower Transfer(FIM): 7 Additional Short Term Goals: 1-Demonstrate ADL Tasks, 2-Verbalize Understanding , 3-ImproveStrength/Gay 1=Demonstrate adherence to instructed precautions during ADL tasks. 2=Patient will verbalize/demonstrate understanding of assistive devices/ modifications for ADL. 3=Patient will improve strength/tolerance for activity to enable patient to perform ADL's. OT Motor Teacher Goals Senior Living Goals Time Frame: Apr 19, 2018 Eating (FIM): 7 Eating (QC): 6 Groomin Oral Hygiene (QC): 6 Bathing(FIM): 6 Bathing Location: L Arm, R Arm, L Upper Leg, R Upper Leg, L Lower Leg ( including foot), R Lower Leg (including foot), Chest, Abdomen, Buttocks, Perineal Area Shower/Bathe Self (QC): 6 Upper Body Dressing(FIM): 7 Upper Body Dressing (QC): 6 Lower Body Dressing(FIM): 6 Lower Body Dressing (QC): 6 On/Off Footwear (QC): 6 Toileting(FIM): 6 Toileting Hygiene (QC): 6 Transfers (B,C,W/C) (FIM): 6 Toilet/Commode Transfer(FIM): 6 Toilet/Commode Transfer (QC): 6 Tub Transfer(FIM): 6 Shower Transfer(FIM): 6 Additional Goals: 1-Demonstrate ADL Tasks, 2-Verbalize Understanding, 3- ImproveStrength/Gay 1=Demonstrate adherence to instructed precautions during ADL tasks. 2=Patient will verbalize/demonstrate understanding of assistive devices/ modifications for ADL. 3=Patient will improve strength/tolerance for activity to enable patient to perform ADL's. OT Education/Plan Discharge Recommendations Plan/Recommendations: Continue POC Treatment Plan/Plan of Care Patient would benefit from OT for education, treatment and training to promote independence in ADL's, mobility, safety and/or upper extremity function for ADL' s. Plan of Care: ADL Retraining, Caregiver Training, Functional Mobility, Group Exercise/Act as Ind, UE Funct Exercise/Act, UE Neuromus Re-Ed/Coord Treatment Duration: Apr 19, 2018 Frequency: At least 5 of 7 days/Wk (IRF) Estimated Hrs Per Day: 1.5 hours per day Agreement: Yes Rehab Potential: Good Time/GCodes Start Time: 08:00 Stop Time: 09:00 Total Time Billed (hr/min): 60 Billed Treatment Time 1 visit-ADL 4 (60 min) ERIN VELASCO Mar 27, 2018 08:42
--- NOTE | 2018-03-27 08:52 | PM&R Progress Note ---
Subjective This was a face to face visit with the patient. Date Seen by Provider: Mar 27, 2018 Time Seen by Provider: 08:30 Subjective/Events-last exam Patient was seen in her room while she was sitting in chair Large bowel movement and diarrhea now after all meds given Reglan IV is helping her nausea and bowels Decreasing insulin due to hypoglycemia Participating in therapies and doing very well Review of Systems Gastrointestinal: Diarrhea Musculoskeletal: leg pain Objective Physician Exam Last Set of Vital Signs Vital Signs Date Time Temp Pulse Resp B/P (MAP) Pulse Ox O2 Delivery O2 Flow Rate FiO2 03/27/18 06:00 97.4 77 18 105/65 (78) 96 Room Air Capillary Refill : I&O Intake and Output 03/27/18 00:00 Intake Total 1250 ml Balance 1250 ml Intake Oral 1250 ml # Voids 7 # Bowel Movements 5 General: Alert, Oriented X3, Cooperative, No Acute Distress HEENT: Atraumatic, PERRLA Neck: Supple, No JVD, No Thyromegaly, +2 Carotid Pulse No Bruit, No LAD Lungs: Clear to Auscultation, Normal Air Movement Heart: Regular Rate, Normal S1, Normal S2, No Murmurs Abdomen: Normal Bowel Sounds, Soft, No Tenderness, No Hepatosplenomegaly, No Masses Extremities: No Clubbing, No Cyanosis, No Edema, Normal Pulses, No Tenderness/ Swelling Skin: No Rashes, No Breakdown, No Significant Lesion Neuro: Normal Speech, Normal Tone, Sensation Intact, Cranial Nerves 3-12 NL, Reflexes 2+, Other (Decreased range of motion left leg) Psych/Mental Status: Mental Status NL, Mood NL Results Lab Data Laboratory Tests 03/24/18 14:20: Glucometer 162H 03/24/18 15:56: Glucometer 125H 03/24/18 20:39: Glucometer 158H 03/25/18 05:41: Glucometer 150H 03/25/18 11:12: Glucometer 198H 03/25/18 16:22: Glucometer 89 03/25/18 20:36: Glucometer 68L 03/25/18 21:14: Glucometer 80 03/26/18 00:26: Glucometer 115H 03/26/18 05:28: Glucometer 168H 03/26/18 11:29: Glucometer 256H 03/26/18 16:05: Glucometer 192H 03/26/18 20:34: Glucometer 195H 03/27/18 05:49: Glucometer 59*L 03/27/18 06:27: Glucometer 55*L 03/27/18 07:38: Glucometer 148H Current Funtional Status Continue therapies Pain control Incentive spirometer Monitor closely Decrease insulin Assessment/Plan Assessment and Plan (1) Closed left hip fracture Qualifiers: Qualified Codes: S72.002D - Fracture of unspecified part of neck of left femur, subsequent encounter for closed fracture with routine healing Status: Acute (2) Constipation Qualifiers: Qualified Codes: K59.01 - Slow transit constipation Status: Resolved (3) Metastatic renal cell carcinoma to bone Status: Chronic (4) Diabetes mellitus Qualifiers: Qualified Codes: E11.59 - Type 2 diabetes mellitus with other circulatory complications; Z79.4 - FPC (current) use of insulin Status: Chronic (5) Edema Qualifiers: Qualified Codes: R60.0 - Localized edema Status: Chronic (6) GERD (gastroesophageal reflux disease) Qualifiers: Qualified Codes: K21.9 - Gastro-esophageal reflux disease without esophagitis Status: Chronic (7) Chronic pain Qualifiers: Qualified Codes: G89.3 - Neoplasm related pain (acute) (chronic) Status: Chronic (8) DVT prophylaxis Status: Acute (9) Myocardial infarct, old Status: Chronic (10) Stomach ulcer Qualifiers: Qualified Codes: K25.9 - Gastric ulcer, unspecified as acute or chronic, without hemorrhage or perforation Status: Chronic (11) CAD (coronary artery disease) Qualifiers: Qualified Codes: I25.10 - Atherosclerotic heart disease of [place] coronary artery without angina pectoris Status: Chronic (12) Hip fracture requiring operative repair Qualifiers: Qualified Codes: S72.002D - Fracture of unspecified part of neck of left femur, subsequent encounter for closed fracture with routine healing Status: Acute (13) Pressure injury of coccygeal region, stage 1 Status: Acute Co-Morbidities that are continuing to impact the rehab process: (include details ) MICHELLE BONILLA DO Mar 27, 2018 08:52
--- NOTE | 2018-03-27 09:13 | Cardiology Progress Note ---
Cardiology SOAP Progress Note Subjective: No dizziness. No other cardiac symptoms. Objective: I&O/Vital Signs 03/27/18 06:00 Temp 97.4 Pulse 77 Resp 18 B/P (MAP) 105/65 (78) Pulse Ox 96 O2 Delivery Room Air 03/27/18 00:00 Intake Total 600 ml Balance 600 ml Weight (Pounds): 173 Weight (Ounces): 2.0 Weight (Calculated Kilograms): 78.354172 Constitutional: appears stated age, AAO x 3; No apparent distress; well- developed, well-nourished Respiratory: No accessory muscle use, No respiratory distress, No chest tender , No chest expansion is symmetric; chest is bilaterally symmetric; No lungs clear to percussion; lungs clear to auscultation; No crackles, No rhonchi, No rales, No stridor, No wheezing, No pleural rub, No other Cardiovascular: regular rate-rhythm; No irregularly irregular, No extra beats, No parasternal heave is noted, No JVD, No edema, No bradycardia, No tachycardia , No point of maximal impulse, No cardiac thrills are palpable; S1 and S2; No gallop/S3, No gallop/S4, No diastolic murmur, No systolic murmur, No friction rub, No click, No other Gastrointestional: No tender, No soft, No round, No distended, No pulsatile mass, No organomegaly, No guarding, No rebound, No tenderness, No hernia, No mass, No audible bowel sounds, No abnormal bowel sounds, No abdominal bruits, No spleenomegaly, No other Extremities: No normal range of motion, No non-tender, No normal inspection, No pedal edema, No calf tenderness, No normal capillary refill, No pelvis stable , No calf tenderness, No inflammation, No pedal edema, No slow capillary refill , No swelling, No other, No abrasion, No clubbing, No cyanosis, No ecchymosis, No laceration, No no lower extremity edema bilateral, No significant edema, No tenderness, No wound Neurologic/Psychiatric: no motor/sensory deficits, alert, normal mood/affect, oriented x 3, power is 5/5 both on sides Skin: No normal color, No warm/dry, No cyanosis, No cool, No diaphoresis, No damp, No ecchymosis, No jaundice, No mottled, No pallor, No rash, No tattoos/ piercings, No ulcerations, No rash on exposed areas, No ulcerations on exposed areas, No other Results/Procedures: Labs Laboratory Tests 03/26/18 11:29: Glucometer 256H 03/26/18 16:05: Glucometer 192H 03/26/18 20:34: Glucometer 195H 03/27/18 05:49: Glucometer 59*L 03/27/18 06:27: Glucometer 55*L 03/27/18 07:38: Glucometer 148H A/P: Assessment/Dx: Hip fracture, inpatient rehabilitation, History of [place]/CAD/PCI, Borderline hypotension. improved after switching carvedilol, Hyperlipidemia, Hypertension, History of renal cell carcinoma. Plan: Hip fracture, inpatient rehabilitation, History of [place]/CAD/PCI, continue dual antiplatelet therapy with aspirin and Brilinta. Continue statin and beta lindsay. Borderline hypotension, DC carvedilol. Will switch to low dose metoprolol. Hyperlipidemia, pravastatin. Hypertension, carvedilol dced and started on low dose metoprolol. History of renal cell carcinoma. Thank you for your consultation. Please call me if you have any questions. Anton Potts MD, FACP, FACC, FSCAI, FHRS, CCDS Interventional Cardiology Cardiac Electrophysiology Vascular Medicine and Endovascular Interventions Velma POTTS MD Mar 27, 2018 9:13 am
[2018-03-27] MEDS: inSUlin DETERMIR 1 UNIT/0.01 ML (LEVEMIR) CHARGE PER UNIT SQ SCH ×2 (09:18→20:34)
--- NOTE | 2018-03-27 12:00 | NUR ---
REFUSED REGLAN BECAUSE OF HAVING LOOSE STOOLS.
--- NOTE | 2018-03-27 12:02 | Physical Therapy Daily Note ---
PT Daily Note-Current Subjective Pt. agrees to Rx. States she has pain at 6/10 in left hip. Pain Numeric Pain Scale: 6 Location: Left Location Body Site: Hip Pain Description: Ache Mental Status Patient Orientation: Normal For Age Transfers Therapy Code Descriptions/Definitions Functional [place] Measure: 0=Not Assessed/NA 4=Minimal Assistance 1=Total Assistance 5=Supervision or Setup 2=Maximal Assistance 6=Modified [place] 3=Moderate Assistance 7=Complete [place] Therapy Quality Codes: 6 Independent with activity with or without an assistive device 5 Patient requires set up or clean up by helper. Patient completes activity by themselves 4 Supervision or touching assist (CGA). [place] provide cues , steadying assist 3 The helper provides less than half the effort to complete the activity 2 The helper provides more than half the effort to complete the activity 1 Dependent. The helper does all the effort to complete an activity 7 Patient refused to complete or attempt activity 9 The patient did not perform the activity before the current illness or injury 88 Not attempted due to Medical conditions or safety concerns Transfers (B, C, W/C) (FIM): 4 Scootin Rollin Supine to/from Sit: 4 Sit to/from Stand: 5 Weight Bearing Right Lower Extremity: Right Full Weight Bearing Left Lower Extremity: Left Weight Bearing/Tolerated Gait Training Does the Patient Walk?: Yes Gait (FIM): 5 Distance (FIM): 3=150 ft (160x2) Gait Level of Assist: 5 Gait Persons Needed: 1 Gait Assistive Device: FWW slow, good step length etc Exercises Supine Ex: Ankle pumps, Quad Set, Rolling, Glut sets, Heel Slides, Short Arc Quads, Scooting, Hip abd/add Supine Reps: 15 Seated Therapy Exercises: Ankle pumps, Sit to stand, Long arc quads, Hip flexion (right) Seated Reps: 12 NuStep Minutes: 10 NuStep Workload: 3 Assessment Current Status: Good Progress PT Short Term Goals Short Term Goals Time Frame: Mar 29, 2018 Transfers (B,C,W/C) (FIM): 7 Gait (FIM): 5 Distance (FIM): 3=150 ft Gait Assistive Device: FWW Stairs (FIM): 2 # of Steps: 4 PT Petroleum Analyst Goals Petroleum Analyst Goals PT Alf Goals Time Frame: Apr 06, 2018 Transfers (B,C,W/C) (FIM): 6 Sit to Lying (QC): 6 Lying-Sitting on Side/Bed(QC): 6 Sit to Stand (QC): 6 Roll Left to Right (QC): 6 Chair/Wti-zp-Mykzd Xfer(QC): 6 Car Transfer (QC): 6 Does the Patient Walk: Yes Gait (FIM): 6 Walk 10 feet (QC): 6 Walk 10ft-Uneven Surface(QC): 6 Walk 50ft with 2 Turns (QC): 6 Walk 150 ft (QC): 6 Gait Assistive Device: FWW Does the Pt use WC or Scooter?: No Stairs (FIM): 5 (household) # of Steps: 4 1 Step (curb) (QC): 6 4 Steps (QC): 6 12 Steps (QC): 88 Picking up an Object (QC): 88 PT Plan Treatment/Plan Treatment Plan: Continue Plan of Care Treatment Plan: Bed Mobility, Education, Functional Activity Gay, Functional Strength, Group Therapy, Gait, Safety, Therapeutic Exercise, Transfers Treatment Duration: Apr 06, 2018 Frequency: Modified Program (IRF) Estimated Hrs Per Day: 1.5 hours per day Patient and/or Family Agrees t: Yes Safety Risks/Education Patient Education: Gait Training, Transfer Techniques, Correct Positioning, W/ C Management, Disease Process, Safety Issues Teaching Recipient: Patient Teaching Methods: Demonstration, Discussion Response to Teaching: Verbalize Understanding, Return Demonstration, Reinforcement Needed Time/GCodes Time In: 1100 Time Out: 1200 Total Billed Treatment Time: 60 Total Billed Treatment 1,GT15m,FA20m,EX25m G Codes Necessary: No ESTHELA MORAN PTA Mar 27, 2018 12:02
--- NOTE | 2018-03-27 15:25 | Therapy Group Daily Note ---
Therapy Daily Group Note Patient Education Topic Home Safety, Other List Below (transfer techniques ie bed, chair, car and tub/ shower) Exercises LE Seated Exercise, UE Exercise Other/Notes Pt participated in group therapy with 4 to 1 ratio. Goals of session: Understanding of safe transfers (car, bed, chair, tub/shower) .(met) Remember one seated exercise UE or LE to lead group.(met) Complete UE/ LE seated exercises.(met) Pt ambulated to from group with assist FWW. Group consisted of introductions ( name, place, favorite place to visit :outside at [place]), socialization, seated UE /LE exercises, education on safe transfers and 5 memory words (radha, VW, 1, dog , cinnamon candy). Pt introduced self appropriately and actively listened to peers. Pt able to complete UE/LE seated exercise. Pt lead seated long arc quad, 10x's. Pt acknowledged understanding of transfers by nodding head in acknowledgement. After group, pt lying in bed with call light/phone in reach. All needs met in room. Start Time: 13:00 Stop Time: 14:15 Total Billed Treatment Time: 75 Total Billed Treatment 1,GRP ESTHELA MORAN WEATHERIZATION ADMINISTRATOR Mar 27, 2018 15:25
[2018-03-27] MEDS: ENOXAPARIN 40 MG/0.4 ML (LOVENOX) SYR SC SCH (17:22)
[2018-03-27 17:28] VITALS: BP 104/53
[2018-03-27] MEDS ORDERED: METOCLOPRAMIDE INJ 10 MG/2 ML (REGLAN) IVP PRN (17:45)
--- NOTE | 2018-03-27 19:37 | Progress Note (SOAP) ---
Subjective Date Seen by a Provider: Mar 27, 2018 Time Seen by a Provider: 15:00 Subjective/Events-last exam doing much better. had 2 very large and significant bowel movements last night and this am. no abd distention or pain. tolerating regular diet. Objective Exam Vital Signs Date Time Temp Pulse Resp B/P (MAP) Pulse Ox O2 Delivery O2 Flow Rate FiO2 03/27/18 17:28 97.7 78 18 104/53 (70) 97 Room Air 03/27/18 06:00 97.4 77 18 105/65 (78) 96 Room Air 03/26/18 21:00 Room Air I & O 03/27/18 07:00 Intake Total 1100 ml Balance 1100 ml Capillary Refill : General Appearance: No Apparent Distress HEENT: PERRL/EOMI Neck: Full Range of Motion Respiratory: Chest Non Tender, Lungs Clear Cardiovascular: Regular Rate, Rhythm Gastrointestinal: normal bowel sounds, soft Extremity: Normal Capillary Refill Neurologic/Psychiatric: Alert, Oriented x3 Skin: Normal Color Lymphatic: No Adenopathy Results Lab Laboratory Tests 03/26/18 20:34: Glucometer 195H 03/27/18 05:49: Glucometer 59*L 03/27/18 06:27: Glucometer 55*L 03/27/18 07:38: Glucometer 148H 03/27/18 10:56: Glucometer 150H 03/27/18 16:15: Glucometer 162H Assessment/Plan Assessment/Plan Assess & Plan/Chief Complaint constipation secondary chronic opioid secondary metastatic renal cell cancer and recent pathologic left hip fx. having significant bowel movements now. will make reglan PRN. continue miralax BID PRN. continue PT Clinical Quality Measures DVT/VTE Risk/Contraindication: Risk Factor Score Per Nursin RFS Level Per Nursing on Admit: 2=Moderate JELENA ORR MD Mar 27, 2018 19:37
[2018-03-27] MEDS: SIMvastatin 20 MG (ZOCOR) TAB PO SCH (20:34)
[2018-03-28 05:47] VITALS: BP 107/54
[2018-03-28] MEDS: PANTOPRAZOLE 40 MG (PROTONIX) TAB PO SCH ×2 (07:32→17:53)
[2018-03-28] MEDS: ASPIRIN E.C. 81 MG (ECOTRIN) TAB PO SCH (07:32)
[2018-03-28] MEDS: meTOprolol TARTRATE 25 MG (LOPRESSOR) TABLET PO SCH ×2 (07:33→20:32)
[2018-03-28] MEDS: SENNA W/DOCUSATE (SENOKOT S) TABLET PO SCH ×2 (07:33→20:32)
[2018-03-28] MEDS: POLYETHYLENE GLYCOL 17 GM (MIRALAX) PACK PO SCH ×2 (07:33→20:32)
[2018-03-28] MEDS: inSUlin DETERMIR 1 UNIT/0.01 ML (LEVEMIR) CHARGE PER UNIT SQ SCH ×2 (07:34→20:53)
[2018-03-28] MEDS: TICAGRELOR 90 MG TABLET (BRILINTA) PO SCH ×2 (07:36→20:31)
[2018-03-28] MEDS: MENTHOL/ZINC OXIDE (CALMOSEPTINE) 113 GM TUBE TOP SCH ×3 (07:37→20:34)
[2018-03-28] MEDS: HYDROcodone/APAP 10 MG/325 MG (LORTAB) TAB PO PRN ×3 (07:45→20:32)
--- NOTE | 2018-03-28 08:44 | PM&R Progress Note ---
Subjective HPI/CC On Admission Date Seen by Provider: Mar 28, 2018 Time Seen by Provider: 08:20 CC: Left hip fracture recovery HPI: This is a 62-year-old white female with a known history of renal cell carcinoma managed by Dr. Herb Wilcox oncology at [facility] whose primary care provider is Dr. Evelio barrow Stites who presents to inpatient rehabilitation for aggressive therapy following a left hip fracture. Apparently she sustained a fall suffered a left hip fracture and had an uncomplicated repair at [facility]. She had recent coronary artery stent placement maintained on Brilinta and patient was monitored closely for any recurrence of acute coronary syndrome. I have reviewed and restarted all of her home medication including Lovenox for DVT prophylaxis of 40 mg subcutaneous daily. Patient reports pain is controlled currently and is ready to start her therapies. Subjective/Events-last exam Patient doing well except for periodic pain at the left hip Slept well that may be slept too well and stiffened up the hip Applying ice for the pain Bowels moved a great deal the last 2 days so doing well from that standpoint Blood pressure stable Blood sugar stable Review of Systems General: Fatigue Musculoskeletal: leg pain Objective Exam Vital Signs Vital Signs Date Time Temp Pulse Resp B/P (MAP) Pulse Ox O2 Delivery O2 Flow Rate FiO2 03/28/18 05:47 98.0 80 18 107/54 (71) 92 Room Air Capillary Refill : General Appearance: No Apparent Distress, WD/WN, Chronically ill Respiratory: Chest Non Tender, Lungs Clear, Normal Breath Sounds, No Accessory Muscle Use, No Respiratory Distress Cardiovascular: Regular Rate, Rhythm, No Edema, No Gallop, No JVD, No Murmur, Normal Peripheral Pulses Neurologic/Psychiatric: Alert, Oriented x3, No Motor/Sensory Deficits, Normal Mood/Affect Results/Procedures Lab Patient resulted labs reviewed. Assessment/Plan Assessment and Plan Assess & Plan/Chief Complaint Assessment: Debility following left hip fracture Renal cell carcinoma with metastases to the bone and lung Diabetes mellitus insulin-dependent CAD with recent stent placement on Brilinta managed by Dr. Keith at [place] Chronic pain on fentanyl patch Acute constipation needs another SSE and Dr. Clemetns consultations appreciated and noted x-ray showing left colon constipation now on Reglan and multiple meds and some results Chronic lower extremity edema Hyperlipidemia Stomach ulcers 2 weeks ago requiring surgical intervention Anemia Stage I pressure ulcer coccyx placed on air mattress and Calmoseptine Nausea placed on Reglan improved now Plan: Start aggressive therapy Pain control Home meds Cardiology consult Maintain Brilinta Lovenox for DVT prophylaxis Constipation resolved Air mattress Reglan for nausea Diagnosis/Problems Diagnosis/Problems (1) Closed left hip fracture Status: Acute Qualifiers: Encounter type: subsequent encounter Fracture healing: with routine healing Qualified Codes: S72.002D - Fracture of unspecified part of neck of left femur, subsequent encounter for closed fracture with routine healing (2) Constipation Status: Resolved Qualifiers: Constipation type: slow transit constipation Qualified Codes: K59.01 - Slow transit constipation Resolution Date/Time: 03/27/18 @ 12:59 (3) Metastatic renal cell carcinoma to bone Status: Chronic (4) Diabetes mellitus Status: Chronic Qualifiers: Diabetes mellitus type: type 2 Diabetes mellitus exterminator termite insulin use: with exterminator termite use Diabetes mellitus complication status: with circulatory complication Diabetes mellitus complication detail: with other circulatory complications Qualified Codes: E11.59 - Type 2 diabetes mellitus with other circulatory complications; Z79.4 - custodial (current) use of insulin (5) Edema Status: Chronic Qualifiers: Edema type: localized Qualified Codes: R60.0 - Localized edema (6) GERD (gastroesophageal reflux disease) Status: Chronic Qualifiers: Esophagitis presence: without esophagitis Qualified Codes: K21.9 - Gastro- esophageal reflux disease without esophagitis (7) Chronic pain Status: Chronic Qualifiers: Chronic pain type: due to neoplasm Qualified Codes: G89.3 - Neoplasm related pain (acute) (chronic) (8) DVT prophylaxis Status: Acute (9) Myocardial infarct, old Status: Chronic (10) Stomach ulcer Status: Chronic Qualifiers: Gastric ulcer chronicity: unspecified ulcer chronicity Gastric ulcer complication status: unspecified whether hemorrhage or perforation present Qualified Codes: K25.9 - Gastric ulcer, unspecified as acute or chronic, without hemorrhage or perforation (11) CAD (coronary artery disease) Status: Chronic Qualifiers: Coronary Disease-Associated Artery/Lesion type: [place] artery [place] vs. transplanted heart: [place] heart Associated angina: without angina Qualified Codes: I25.10 - Atherosclerotic heart disease of [place] coronary artery without angina pectoris (12) Hip fracture requiring operative repair Status: Acute Qualifiers: Encounter type: subsequent encounter Fracture type: closed Laterality: left Fracture healing: with routine healing Qualified Codes: S72.002D - Fracture of unspecified part of neck of left femur, subsequent encounter for closed fracture with routine healing (13) Pressure injury of coccygeal region, stage 1 Status: Acute Assessment & Plan: air mattress Clinical Quality Measures DVT/VTE Risk/Contraindication: Risk Factor Score Per Nursin RFS Level Per Nursing on Admit: 2=Moderate MICHELLE BONILLA DO Mar 28, 2018 08:44
[2018-03-28] MEDS: CYCLOBENZAPRINE 10 MG (FLEXERIL) TAB PO PRN ×2 (08:48→14:00)
--- NOTE | 2018-03-28 10:37 | Cardiology Progress Note ---
Cardiology SOAP Progress Note Subjective: No cardiac compliants. Objective: I&O/Vital Signs 03/28/18 05:47 Temp 98.0 Pulse 80 Resp 18 B/P (MAP) 107/54 (71) Pulse Ox 92 O2 Delivery Room Air 03/28/18 00:00 Intake Total 900 ml Balance 900 ml Weight (Pounds): 173 Weight (Ounces): 2.0 Weight (Calculated Kilograms): 78.832908 Constitutional: appears stated age, AAO x 3; No apparent distress; well- developed, well-nourished Respiratory: No accessory muscle use, No respiratory distress, No chest tender , No chest expansion is symmetric; chest is bilaterally symmetric; No lungs clear to percussion; lungs clear to auscultation; No crackles, No rhonchi, No rales, No stridor, No wheezing, No pleural rub, No other Cardiovascular: regular rate-rhythm; No irregularly irregular, No extra beats, No parasternal heave is noted, No JVD, No edema, No bradycardia, No tachycardia , No point of maximal impulse, No cardiac thrills are palpable; S1 and S2; No gallop/S3, No gallop/S4, No diastolic murmur, No systolic murmur, No friction rub, No click, No other Gastrointestional: No tender, No soft, No round, No distended, No pulsatile mass, No organomegaly, No guarding, No rebound, No tenderness, No hernia, No mass, No audible bowel sounds, No abnormal bowel sounds, No abdominal bruits, No spleenomegaly, No other Extremities: No normal range of motion, No non-tender, No normal inspection, No pedal edema, No calf tenderness, No normal capillary refill, No pelvis stable , No calf tenderness, No inflammation, No pedal edema, No slow capillary refill , No swelling, No other, No abrasion, No clubbing, No cyanosis, No ecchymosis, No laceration, No no lower extremity edema bilateral, No significant edema, No tenderness, No wound Neurologic/Psychiatric: no motor/sensory deficits, alert, normal mood/affect, oriented x 3, power is 5/5 both on sides Skin: No normal color, No warm/dry, No cyanosis, No cool, No diaphoresis, No damp, No ecchymosis, No jaundice, No mottled, No pallor, No rash, No tattoos/ piercings, No ulcerations, No rash on exposed areas, No ulcerations on exposed areas, No other Results/Procedures: Labs Laboratory Tests 03/27/18 10:56: Glucometer 150H 03/27/18 16:15: Glucometer 162H 03/27/18 20:12: Glucometer 191H 03/28/18 05:01: Glucometer 157H A/P: Assessment/Dx: Hip fracture, inpatient rehabilitation, History of [place]/CAD/PCI, Borderline hypotension. improved after switching carvedilol, Hyperlipidemia, Hypertension, History of renal cell carcinoma. Plan: Hip fracture, inpatient rehabilitation, History of [place]/CAD/PCI, continue dual antiplatelet therapy with aspirin and Brilinta. Continue statin and beta lindsay. Borderline hypotension, DC carvedilol. Will switch to low dose metoprolol. Hyperlipidemia, pravastatin. Hypertension, carvedilol dced and started on low dose metoprolol. History of renal cell carcinoma. Thank you for your consultation. Please call me if you have any questions. Anton Potts MD, FACP, FACC, FSCAI, FHRS, CCDS Interventional Cardiology Cardiac Electrophysiology Vascular Medicine and Endovascular Interventions Velma POTTS MD Mar 28, 2018 10:37
[2018-03-28] MEDS: ACETAMINOPHEN 500 MG TAB (TYLENOL) PO PRN (11:38)
--- NOTE | 2018-03-28 12:01 | Physical Therapy Daily Note ---
PT Daily Note-Current Subjective Pt sitting in recliner upon arrival. Pt agrees to PT despite reporting pain on L distal femur. Nurse notified and Tylenol given. Pain Numeric Pain Scale: 8 Location: Left Location Body Site: Thigh Pain Description: Stabbing, Burning, Sharp Mental Status Patient Orientation: Person, Place, Time, Situation Transfers Therapy Code Descriptions/Definitions Functional [place] Measure: 0=Not Assessed/NA 4=Minimal Assistance 1=Total Assistance 5=Supervision or Setup 2=Maximal Assistance 6=Modified [place] 3=Moderate Assistance 7=Complete [place] Therapy Quality Codes: 6 Independent with activity with or without an assistive device 5 Patient requires set up or clean up by helper. Patient completes activity by themselves 4 Supervision or touching assist (CGA). [place] provide cues , steadying assist 3 The helper provides less than half the effort to complete the activity 2 The helper provides more than half the effort to complete the activity 1 Dependent. The helper does all the effort to complete an activity 7 Patient refused to complete or attempt activity 9 The patient did not perform the activity before the current illness or injury 88 Not attempted due to Medical conditions or safety concerns Scootin Supine to/from Sit: 5 Sit to/from Stand: 5 Sit to Lying (QC): 5 Sit to Stand (QC): 5 Weight Bearing Right Lower Extremity: Right Full Weight Bearing Left Lower Extremity: Left Weight Bearing/Tolerated Gait Training Does the Patient Walk?: Yes Distance (FIM): 3=150 ft Distance: 150' Walk 10 feet (QC): 5 Walk 50 ft with 2 Turns(QC): 5 Walk 150 ft (QC): 5 Gait Level of Assist: 5 Gait Persons Needed: 1 Gait Assistive Device: FWW Pt walks with antalgic gait pattern. Exercises Seated Therapy Exercises: Ankle pumps, Long arc quads, Hip flexion, Kicking activity Seated Reps: 15 Treatments Pt transfers from recliner to standing using FWW at SBA. Pt ambulates in hallway and Therapy Commons using FWW at close SBA due to pain. Pt takes a couple short rest breaks during ambulation due to pain while ambulating. Pt returns to room at end of tx to rest Supine in bed. Pt given warm blanket to aid with comfort. Pt resting with all needs met. Assessment Current Status: Fair Progress Pt's pain limits tx today. Pt is very motivated and wants to continue working with [facility] as long as possible to improve before discharge. PT Short Term Goals Short Term Goals Time Frame: Mar 29, 2018 Transfers (B,C,W/C) (FIM): 7 Gait (FIM): 5 Distance (FIM): 3=150 ft Gait Assistive Device: FWW Stairs (FIM): 2 # of Steps: 4 PT Patient Safety Manager Goals Senior Living Goals PT Patient Safety Manager Goals Time Frame: Apr 06, 2018 Transfers (B,C,W/C) (FIM): 6 Sit to Lying (QC): 6 Lying-Sitting on Side/Bed(QC): 6 Sit to Stand (QC): 6 Rollin Roll Left to Right (QC): 6 Chair/Zjq-pu-Bimps Xfer(QC): 6 Car Transfer (QC): 6 Does the Patient Walk: Yes Gait (FIM): 6 Walk 10 feet (QC): 6 Walk 10ft-Uneven Surface(QC): 6 Walk 50ft with 2 Turns (QC): 6 Walk 150 ft (QC): 6 Gait Assistive Device: FWW Does the Pt use WC or Scooter?: No Stairs (FIM): 5 (household) # of Steps: 4 1 Step (curb) (QC): 6 4 Steps (QC): 6 12 Steps (QC): 88 Picking up an Object (QC): 88 PT Plan Problem List Problem List: Activity Tolerance, Functional Strength, Safety, Gait Treatment/Plan Treatment Plan: Continue Plan of Care Treatment Plan: Bed Mobility, Education, Functional Activity Gay, Functional Strength, Group Therapy, Gait, Safety, Therapeutic Exercise, Transfers Treatment Duration: Apr 06, 2018 Frequency: Modified Program (IRF) Estimated Hrs Per Day: 1.5 hours per day Patient and/or Family Agrees t: Yes Safety Risks/Education Patient Education: Gait Training, Transfer Techniques, Correct Positioning, Safety Issues Teaching Recipient: Patient Teaching Methods: Discussion Response to Teaching: Verbalize Understanding Time/GCodes Time In: 1115 Time Out: 1200 Total Billed Treatment Time: 45 Total Billed Treatment 1, EX (15m), GT (15m) & FA (15m) G Codes Necessary: No VI GILLETTE LIFT TRUCK OPERATOR Mar 28, 2018 12:01
--- NOTE | 2018-03-28 12:21 | Occupational Ther Daily Note ---
OT Current Status-Daily Note Subjective Pt sitting in chair, agrees to therapy. Pt reports 7/10 pain in left LE, states she thinks she slept on it wrong. Mental Status/Objective Therapy Code Descriptions/Definitions Functional [place] Measure: 0=Not Assessed/NA 4=Minimal Assistance 1=Total Assistance 5=Supervision or Setup 2=Maximal Assistance 6=Modified [place] 3=Moderate Assistance 7=Complete [place] ADL-Treatment Pt states she has already completed sponge bath, grooming, and toileting this morning. Pt is wearing a gown and declined to change into clothes at this time. Therapy Code Descriptions/Definitions Functional [place] Measure: 0=Not Assessed/NA 4=Minimal Assistance 1=Total Assistance 5=Supervision or Setup 2=Maximal Assistance 6=Modified [place] 3=Moderate Assistance 7=Complete [place] Therapy Quality Codes: 6 Independent with activity with or without an assistive device 5 Patient requires set up or clean up by helper. Patient completes activity by themselves 4 Supervision or touching assist (CGA). [place] provide cues , steadying assist 3 The helper provides less than half the effort to complete the activity 2 The helper provides more than half the effort to complete the activity 1 Dependent. The helper does all the effort to complete an activity 7 Patient refused to complete or attempt activity 9 The patient did not perform the activity before the current illness or injury 88 Not attempted due to Medical conditions or safety concerns Other Treatment Pt sit to stand from chair with supervision. Gait to therapy gym with FWW, no LOB noted. Arm bike [id number] to increase strength and activity tolerance needed for functional tasks. Pt completed activity with minimal resistance and steady pace. No rest breaks required during task. Pt performed bilateral UE exercises to increase strength for ADLs and transfers. Pt able to recall three exercises from previous sessions. Pt performed five exercises x10 reps with yellow theraband. Brief rest breaks between exercises. Graded clothespins task with bilateral hand to increase datacap developer/pinch strength for functional tasks. Pt ambulated back to room with FWW. Transfer to chair with SBA. Pt sitting in chair with needs met after session. OT Short Term Goals Short Term Goals Time Frame: Apr 05, 2018 Eating(FIM): 6 Grooming(FIM): 6 Bathing(FIM): 5 Bathing Location: L Arm, R Arm, L Upper Leg, R Upper Leg, L Lower Leg ( including foot), R Lower Leg (including foot), Chest, Abdomen, Buttocks, Perineal Area Upper Body Dressing(FIM): 7 Lower Body Dressing(FIM): 6 Toileting(FIM): 6 Transfers (B,C,W/C) (FIM): 7 Toilet/Commode Transfer(FIM): 7 Tub Transfer(FIM): 2 Shower Transfer(FIM): 7 Additional Short Term Goals: 1-Demonstrate ADL Tasks, 2-Verbalize Understanding , 3-ImproveStrength/Gay 1=Demonstrate adherence to instructed precautions during ADL tasks. 2=Patient will verbalize/demonstrate understanding of assistive devices/ modifications for ADL. 3=Patient will improve strength/tolerance for activity to enable patient to perform ADL's. OT [facility] Goals [employer] Main Fitter Helper Goals Time Frame: Apr 19, 2018 Eating (FIM): 7 Eating (QC): 6 Groomin Oral Hygiene (QC): 6 Bathing(FIM): 6 Bathing Location: L Arm, R Arm, L Upper Leg, R Upper Leg, L Lower Leg ( including foot), R Lower Leg (including foot), Chest, Abdomen, Buttocks, Perineal Area Shower/Bathe Self (QC): 6 Upper Body Dressing(FIM): 7 Upper Body Dressing (QC): 6 Lower Body Dressing(FIM): 6 Lower Body Dressing (QC): 6 On/Off Footwear (QC): 6 Toileting(FIM): 6 Toileting Hygiene (QC): 6 Transfers (B,C,W/C) (FIM): 6 Toilet/Commode Transfer(FIM): 6 Toilet/Commode Transfer (QC): 6 Tub Transfer(FIM): 6 Shower Transfer(FIM): 6 Additional Goals: 1-Demonstrate ADL Tasks, 2-Verbalize Understanding, 3- ImproveStrength/Gay 1=Demonstrate adherence to instructed precautions during ADL tasks. 2=Patient will verbalize/demonstrate understanding of assistive devices/ modifications for ADL. 3=Patient will improve strength/tolerance for activity to enable patient to perform ADL's. OT Education/Plan Discharge Recommendations Plan/Recommendations: Continue POC Treatment Plan/Plan of Care Patient would benefit from OT for education, treatment and training to promote independence in ADL's, mobility, safety and/or upper extremity function for ADL' s. Plan of Care: ADL Retraining, Caregiver Training, Functional Mobility, Group Exercise/Act as Ind, UE Funct Exercise/Act, UE Neuromus Re-Ed/Coord Treatment Duration: Apr 19, 2018 Frequency: At least 5 of 7 days/Wk (IRF) Estimated Hrs Per Day: 1.5 hours per day Agreement: Yes Rehab Potential: Good Time/GCodes Start Time: 10:00 Stop Time: 11:00 Total Time Billed (hr/min): 60 Billed Treatment Time 1 visit, EXx4(60minutes) DANYA MANNING OT Mar 28, 2018 12:21
--- NOTE | 2018-03-28 15:13 | Occupational Ther Daily Note ---
OT Current Status-Daily Note Subjective Pt in bed, agrees to therapy. Pt reports 7/10 pain in left LE. Mental Status/Objective Therapy Code Descriptions/Definitions Functional [place] Measure: 0=Not Assessed/NA 4=Minimal Assistance 1=Total Assistance 5=Supervision or Setup 2=Maximal Assistance 6=Modified [place] 3=Moderate Assistance 7=Complete [place] ADL-Treatment Supine to sit with SBA. Sit to stand with SBA. Gait to restroom with FWW. Transfer to [facility] over toilet with SBA. Pt able to pull pants down and complete toileting hygiene. Pt doffed brief without assistance. Used excavating machine operator to start clean Depends over feet. Able to pull Depends up with SBA. Stood at sink to wash hands without assist. Therapy Code Descriptions/Definitions Functional [place] Measure: 0=Not Assessed/NA 4=Minimal Assistance 1=Total Assistance 5=Supervision or Setup 2=Maximal Assistance 6=Modified [place] 3=Moderate Assistance 7=Complete [place] Therapy Quality Codes: 6 Independent with activity with or without an assistive device 5 Patient requires set up or clean up by helper. Patient completes activity by themselves 4 Supervision or touching assist (CGA). [place] provide cues , steadying assist 3 The helper provides less than half the effort to complete the activity 2 The helper provides more than half the effort to complete the activity 1 Dependent. The helper does all the effort to complete an activity 7 Patient refused to complete or attempt activity 9 The patient did not perform the activity before the current illness or injury 88 Not attempted due to Medical conditions or safety concerns Toileting (FIM): 5 Toileting Hygiene (QC): 4 Toilet/Commode Transfer (FIM): 5 Toilet Transfer (QC): 4 Other Treatment Gait to therapy gym with FWW. Pt completed bilateral UE exercises to increase strength needed for ADLs and transfers. Pt performed four exercises x20 reps with dowel [place]. Brief rest breaks between exercises. Pt returned to room, sitting in chair with needs met after session. OT Short Term Goals Short Term Goals Time Frame: Apr 05, 2018 Eating(FIM): 6 Grooming(FIM): 6 Bathing(FIM): 5 Bathing Location: L Arm, R Arm, L Upper Leg, R Upper Leg, L Lower Leg ( including foot), R Lower Leg (including foot), Chest, Abdomen, Buttocks, Perineal Area Upper Body Dressing(FIM): 7 Lower Body Dressing(FIM): 6 Toileting(FIM): 6 Transfers (B,C,W/C) (FIM): 7 Toilet/Commode Transfer(FIM): 7 Tub Transfer(FIM): 2 Shower Transfer(FIM): 7 Additional Short Term Goals: 1-Demonstrate ADL Tasks, 2-Verbalize Understanding , 3-ImproveStrength/Gay 1=Demonstrate adherence to instructed precautions during ADL tasks. 2=Patient will verbalize/demonstrate understanding of assistive devices/ modifications for ADL. 3=Patient will improve strength/tolerance for activity to enable patient to perform ADL's. OT Group Home Goals Group Home Goals Time Frame: Apr 19, 2018 Eating (FIM): 7 Eating (QC): 6 Groomin Oral Hygiene (QC): 6 Bathing(FIM): 6 Bathing Location: L Arm, R Arm, L Upper Leg, R Upper Leg, L Lower Leg ( including foot), R Lower Leg (including foot), Chest, Abdomen, Buttocks, Perineal Area Shower/Bathe Self (QC): 6 Upper Body Dressing(FIM): 7 Upper Body Dressing (QC): 6 Lower Body Dressing(FIM): 6 Lower Body Dressing (QC): 6 On/Off Footwear (QC): 6 Toileting(FIM): 6 Toileting Hygiene (QC): 6 Transfers (B,C,W/C) (FIM): 6 Toilet/Commode Transfer(FIM): 6 Toilet/Commode Transfer (QC): 6 Tub Transfer(FIM): 6 Shower Transfer(FIM): 6 Additional Goals: 1-Demonstrate ADL Tasks, 2-Verbalize Understanding, 3- ImproveStrength/Gay 1=Demonstrate adherence to instructed precautions during ADL tasks. 2=Patient will verbalize/demonstrate understanding of assistive devices/ modifications for ADL. 3=Patient will improve strength/tolerance for activity to enable patient to perform ADL's. OT Education/Plan Discharge Recommendations Plan/Recommendations: Continue POC Treatment Plan/Plan of Care Patient would benefit from OT for education, treatment and training to promote independence in ADL's, mobility, safety and/or upper extremity function for ADL' s. Plan of Care: ADL Retraining, Caregiver Training, Functional Mobility, Group Exercise/Act as Ind, UE Funct Exercise/Act, UE Neuromus Re-Ed/Coord Treatment Duration: Apr 19, 2018 Frequency: At least 5 of 7 days/Wk (IRF) Estimated Hrs Per Day: 1.5 hours per day Agreement: Yes Rehab Potential: Good Time/GCodes Start Time: 14:00 Stop Time: 14:30 Total Time Billed (hr/min): 30 Billed Treatment Time 1 visit, ADL(15minutes), EX(15minutes) DANYA MANNING OT Mar 28, 2018 15:13
--- NOTE | 2018-03-28 15:35 | Physical Therapy Daily Note ---
PT Daily Note-Current Subjective Pt was up in recliner and agreed to PT. Reports that her L hip has been more painful and has been spasming more than usual. Pain Numeric Pain Scale: 5-Moderate Pain Location: Left Location Body Site: Hip Mental Status Patient Orientation: Person, Place, Situation, Normal For Age Transfers Therapy Code Descriptions/Definitions Functional [place] Measure: 0=Not Assessed/NA 4=Minimal Assistance 1=Total Assistance 5=Supervision or Setup 2=Maximal Assistance 6=Modified [place] 3=Moderate Assistance 7=Complete [place] Therapy Quality Codes: 6 Independent with activity with or without an assistive device 5 Patient requires set up or clean up by helper. Patient completes activity by themselves 4 Supervision or touching assist (CGA). [place] provide cues , steadying assist 3 The helper provides less than half the effort to complete the activity 2 The helper provides more than half the effort to complete the activity 1 Dependent. The helper does all the effort to complete an activity 7 Patient refused to complete or attempt activity 9 The patient did not perform the activity before the current illness or injury 88 Not attempted due to Medical conditions or safety concerns Transfers (B, C, W/C) (FIM): 5 Scootin Rollin Supine to/from Sit: 5 Sit to/from Stand: 5 Sit to Lying (QC): 5 Sit to Stand (QC): 5 Weight Bearing Right Lower Extremity: Right Full Weight Bearing Left Lower Extremity: Left Weight Bearing/Tolerated Gait Training Does the Patient Walk?: Yes Gait (FIM): 5 Distance (FIM): 3=150 ft Distance: 300' Gait Level of Assist: 5 Gait Persons Needed: 1 Gait Assistive Device: FWW Exercises Seated Therapy Exercises: Ankle pumps, Long arc quads, Hip flexion, Glut set Seated Reps: 20 Standing: Hip Abduction, 3 way Ex=Flex, Abd, Ext (Only Ext) Standing Reps: 20 NuStep Minutes: 10 NuStep Workload: 3 Assessment Current Status: Fair Progress Pt is able to sit<>stand with SBA and no cues for safety. Pt amb with FWW 150' x2 with SBA. Pt able to perform on nustep with workload of 3 for 10 min, was unable to do 15 due to pain in L hip. Pt performed seated LE ex with some recovery breaks due to pain. Pt would try and rub out the spasms and pain in the L hip during tx. Pt was able to perform standing hip abd and hip ext with only L and R in stance. Pt was limited today due to pain but tried to give as much effort as she could and hopes that tomorrow will be better. Pt returned to room and requested to lay down in bed for awhile. Pt has all needs met and is in bed. PT Short Term Goals Short Term Goals Time Frame: Mar 29, 2018 Transfers (B,C,W/C) (FIM): 7 Gait (FIM): 5 Distance (FIM): 3=150 ft Gait Assistive Device: FWW Stairs (FIM): 2 # of Steps: 4 PT Disassembler Goals Detention Goals PT Detention Goals Time Frame: Apr 06, 2018 Transfers (B,C,W/C) (FIM): 6 Sit to Lying (QC): 6 Lying-Sitting on Side/Bed(QC): 6 Sit to Stand (QC): 6 Rollin Roll Left to Right (QC): 6 Chair/[id number]-Xbinm Xfer(QC): 6 Car Transfer (QC): 6 Does the Patient Walk: Yes Gait (FIM): 6 Walk 10 feet (QC): 6 Walk 10ft-Uneven Surface(QC): 6 Walk 50ft with 2 Turns (QC): 6 Walk 150 ft (QC): 6 Gait Assistive Device: FWW Does the Pt use WC or Scooter?: No Stairs (FIM): 5 (household) # of Steps: 4 1 Step (curb) (QC): 6 4 Steps (QC): 6 12 Steps (QC): 88 Picking up an Object (QC): 88 PT Plan Problem List Problem List: Activity Tolerance, Functional Strength, Safety, Balance, Gait, Transfer, ROM Treatment/Plan Treatment Plan: Continue Plan of Care Treatment Plan: Bed Mobility, Education, Functional Activity Gay, Functional Strength, Group Therapy, Gait, Safety, Therapeutic Exercise, Transfers Treatment Duration: Apr 06, 2018 Frequency: Modified Program (IRF) Estimated Hrs Per Day: 1.5 hours per day Patient and/or Family Agrees t: Yes Time/GCodes Time In: 1445 Time Out: 1530 Total Billed Treatment Time: 45 Total Billed Treatment 1 visit Ex x2 30 min FA 15 min BEAN ALLEN PT Mar 28, 2018 15:35
[2018-03-28 16:37] VITALS: BP 102/60
[2018-03-28] MEDS: ENOXAPARIN 40 MG/0.4 ML (LOVENOX) SYR SC SCH (17:49)
[2018-03-28] MEDS: SIMvastatin 20 MG (ZOCOR) TAB PO SCH (20:32)
[2018-03-29 05:02] LABS: BASOPHILS % (AUTO) 0 % (0-10); EOSINOPHILS # (AUTO) 0.6 10^3/uL (0.0-0.3); EOSINOPHILS % (AUTO) 6 % (0-10); HEMATOCRIT 31 % (35-52); HEMOGLOBIN 9.8 G/DL (11.5-16.0); LYMPHOCYTES # (AUTO) 1.3 X 10^3 (1.0-4.0); LYMPHOCYTES % (AUTO) 13 % (12-44); MEAN CORPUSCULAR HEMOGLOBIN 28 PG (25-34); MEAN CORPUSCULAR HGB CONC 32 G/DL (32-36); MEAN CORPUSCULAR VOLUME 89 FL (80-99); MEAN PLATELET VOLUME 9.3 FL (7.4-10.4); MONOCYTES # (AUTO) 1.2 X 10^3 (0.0-1.0); MONOCYTES % (AUTO) 12 % (0-12); NEUTROPHILS % (AUTO) 69 % (42-75); PLATELET COUNT 485 10^3/uL (130-400); RED CELL DISTRIBUTION WIDTH 14.8 % (10.0-14.5); WHITE BLOOD COUNT 10.2 10^3/uL (4.3-11.0)
[2018-03-29 05:51] LABS: ALBUMIN 3.1 GM/DL (3.2-4.5); BILIRUBIN,TOTAL 0.4 MG/DL (0.1-1.0); CREATININE SERUM 1.15 MG/DL (0.60-1.30); POTASSIUM 4.3 MMOL/L (3.6-5.0); TOTAL PROTEIN 6.5 GM/DL (6.4-8.2)
[2018-03-29 06:05] VITALS: BP 108/52
--- NOTE | 2018-03-29 07:54 | Occupational Ther Daily Note ---
OT Current Status-Daily Note Subjective Pt alert, sitting on EOB. Pt agrees to therapy. Pt states she feels better than yesterday, but her lower back does ache. Warm blanket place at lower back at end of therapy. Mental Status/Objective Patient Orientation: Person, Place, Time, Situation Therapy Code Descriptions/Definitions Functional [place] Measure: 0=Not Assessed/NA 4=Minimal Assistance 1=Total Assistance 5=Supervision or Setup 2=Maximal Assistance 6=Modified [place] 3=Moderate Assistance 7=Complete [place] Attachments: Central Line ADL-Treatment Therapy Code Descriptions/Definitions Functional [place] Measure: 0=Not Assessed/NA 4=Minimal Assistance 1=Total Assistance 5=Supervision or Setup 2=Maximal Assistance 6=Modified [place] 3=Moderate Assistance 7=Complete [place] Therapy Quality Codes: 6 Independent with activity with or without an assistive device 5 Patient requires set up or clean up by helper. Patient completes activity by themselves 4 Supervision or touching assist (CGA). [place] provide cues , steadying assist 3 The helper provides less than half the effort to complete the activity 2 The helper provides more than half the effort to complete the activity 1 Dependent. The helper does all the effort to complete an activity 7 Patient refused to complete or attempt activity 9 The patient did not perform the activity before the current illness or injury 88 Not attempted due to Medical conditions or safety concerns Eating (FIM): 7 (Opens packages/containers by self. Uses regular utensils to eat.) Eating (QC): 6 Grooming (FIM): 6 (Using FWW at sink pt able to complete by self.) Oral Hygiene (QC): 6 Bathing (FIM): 6 (Using long handle sponge, grabbar, shower seat and hand held shower pt able to complete by self.) Bathing Location: L Arm, R Arm, L Upper Leg, R Upper Leg, L Lower Leg ( including foot), R Lower Leg (including foot), Chest, Abdomen, Buttocks, Perineal Area Shower/Bathe Self (QC): 6 Upper Body (FIM): 5 (After set up, pt able to complete by self.) Upper Body Dressing (QC): 5 Lower Body Dressing (FIM): 5 (After set up, pt able to complete using AE for lower body dressing.) Lower Body Dressing (QC): 5 On/Off Footwear (QC): 6 Toileting (FIM): 6 (Using FWW, elevated seat with handles and grabbar pt able to complete by self.) Toileting Hygiene (QC): 6 Transfers (B, C, W/C) (FIM): 6 (Using FWW, pt able to complete by self.) Toilet/Commode Transfer (FIM): 6 (Using FWW, grabbars and elevated seat with handles pt able to coomplete by self.) Toilet Transfer (QC): 6 Shower Transfer(FIM): 6 (Using shower seat, grabbars and FWW pt able to complete.) Pt has demonstrated good progress. No LOB during session. Pt states that pt has gotten a hip kit and is working on building a walk-in shower. Pt will be doing a sponge bath until it is complete. After therapy, pt sitting in recliner with call light/phone in reach. All needs met in room. OT Short Term Goals Short Term Goals Time Frame: Apr 05, 2018 Eating(FIM): 6 Grooming(FIM): 6 Bathing(FIM): 5 Bathing Location: L Arm, R Arm, L Upper Leg, R Upper Leg, L Lower Leg ( including foot), R Lower Leg (including foot), Chest, Abdomen, Buttocks, Perineal Area Upper Body Dressing(FIM): 7 Lower Body Dressing(FIM): 6 Toileting(FIM): 6 Transfers (B,C,W/C) (FIM): 7 Toilet/Commode Transfer(FIM): 7 Tub Transfer(FIM): 2 Shower Transfer(FIM): 7 Additional Short Term Goals: 1-Demonstrate ADL Tasks, 2-Verbalize Understanding , 3-ImproveStrength/Gay 1=Demonstrate adherence to instructed precautions during ADL tasks. 2=Patient will verbalize/demonstrate understanding of assistive devices/ modifications for ADL. 3=Patient will improve strength/tolerance for activity to enable patient to perform ADL's. OT Bingo Worker Goals Bingo Worker Goals Time Frame: Apr 19, 2018 Eating (FIM): 7 Eating (QC): 6 Groomin Oral Hygiene (QC): 6 Bathing(FIM): 6 Bathing Location: L Arm, R Arm, L Upper Leg, R Upper Leg, L Lower Leg ( including foot), R Lower Leg (including foot), Chest, Abdomen, Buttocks, Perineal Area Shower/Bathe Self (QC): 6 Upper Body Dressing(FIM): 7 Upper Body Dressing (QC): 6 Lower Body Dressing(FIM): 6 Lower Body Dressing (QC): 6 On/Off Footwear (QC): 6 Toileting(FIM): 6 Toileting Hygiene (QC): 6 Transfers (B,C,W/C) (FIM): 6 Toilet/Commode Transfer(FIM): 6 Toilet/Commode Transfer (QC): 6 Tub Transfer(FIM): 6 Shower Transfer(FIM): 6 Additional Goals: 1-Demonstrate ADL Tasks, 2-Verbalize Understanding, 3- ImproveStrength/Gay 1=Demonstrate adherence to instructed precautions during ADL tasks. 2=Patient will verbalize/demonstrate understanding of assistive devices/ modifications for ADL. 3=Patient will improve strength/tolerance for activity to enable patient to perform ADL's. OT Education/Plan Discharge Recommendations Plan/Recommendations: Continue POC Treatment Plan/Plan of Care Patient would benefit from OT for education, treatment and training to promote independence in ADL's, mobility, safety and/or upper extremity function for ADL' s. Plan of Care: ADL Retraining, Caregiver Training, Functional Mobility, Group Exercise/Act as Ind, UE Funct Exercise/Act, UE Neuromus Re-Ed/Coord Treatment Duration: Apr 19, 2018 Frequency: At least 5 of 7 days/Wk (IRF) Estimated Hrs Per Day: 1.5 hours per day Agreement: Yes Rehab Potential: Good Time/GCodes Start Time: 06:50 Stop Time: 08:00 Total Time Billed (hr/min): 70 Billed Treatment Time 1 visit-ADL 5 (70 min) ERIN VELASCO Mar 29, 2018 07:54
--- NOTE | 2018-03-29 09:03 | PM&R Progress Note ---
Subjective This was a face to face visit with the patient. Date Seen by Provider: Mar 29, 2018 Time Seen by Provider: 08:30 Subjective/Events-last exam Patient was seen in her room when sitting up on bed Patient having loose stools after aggressive bowel regimen finally resolved the severe narcotic bowel Has some muscle spasm in her left leg Team meeting reports: Nursing started probiotics to help with bowel function and Lopressor was restarted due to heart rate in the 100s Physical therapy reports standby assist Occupational therapist reports has a hip kit at home and has been putting in a walk-in shower Dietary reports her nutrition is improving Will need home health with physical therapy and occupational therapy and incision care Discharge goal is 04/04/18 Objective Physician Exam Last Set of Vital Signs Vital Signs Date Time Temp Pulse Resp B/P (MAP) Pulse Ox O2 Delivery O2 Flow Rate FiO2 03/29/18 06:05 97.8 84 18 108/52 (70) 99 Room Air Capillary Refill : I&O Intake and Output 03/28/18 23:59 Intake Total 1580 ml Balance 1580 ml Intake Oral 1580 ml # Voids 6 # Bowel Movements 2 General: Alert, Oriented X3, Cooperative, No Acute Distress HEENT: Atraumatic, PERRLA Neck: Supple, No JVD, No Thyromegaly, +2 Carotid Pulse No Bruit, No LAD Lungs: Clear to Auscultation, Normal Air Movement Heart: Regular Rate, Normal S1, Normal S2, No Murmurs Abdomen: Normal Bowel Sounds, Soft, No Tenderness, No Hepatosplenomegaly, No Masses Extremities: No Clubbing, No Cyanosis, No Edema, Normal Pulses, No Tenderness/ Swelling Skin: No Rashes, No Breakdown, No Significant Lesion Neuro: Normal Speech, Normal Tone, Sensation Intact, Cranial Nerves 3-12 NL, Reflexes 2+, Other (Decreased range of motion left leg) Psych/Mental Status: Mental Status NL, Mood NL Results Lab Data Laboratory Tests 03/26/18 11:29: Glucometer 256H 03/26/18 16:05: Glucometer 192H 03/26/18 20:34: Glucometer 195H 03/27/18 05:49: Glucometer 59*L 03/27/18 06:27: Glucometer 55*L 03/27/18 07:38: Glucometer 148H 03/27/18 10:56: Glucometer 150H 03/27/18 16:15: Glucometer 162H 03/27/18 20:12: Glucometer 191H 03/28/18 05:01: Glucometer 157H 03/28/18 10:57: Glucometer 167H 03/28/18 16:36: Glucometer 153H 03/28/18 20:45: Glucometer 219H 03/29/18 04:55: White Blood Count 10.2, Red Blood Count 3.46L, Hemoglobin 9.8L, Hematocrit 31L, Mean Corpuscular Volume 89, Mean Corpuscular Hemoglobin 28, Mean Corpuscular Hemoglobin Concent 32, Red Cell Distribution Width 14.8H, Platelet Count 485H, Mean Platelet Volume 9.3, Neutrophils (%) (Auto) 69, Lymphocytes (%) (Auto) 13, Monocytes (%) (Auto) 12, Eosinophils (%) (Auto) 6, Basophils (%) (Auto) 0, Neutrophils # (Auto) 7.0, Lymphocytes # (Auto) 1.3, Monocytes # (Auto) 1.2H, Eosinophils # (Auto) 0.6H, Basophils # (Auto) 0.0, Sodium Level 136, Potassium Level 4.3, Chloride Level 101, Carbon Dioxide Level 25, Anion Gap 10, Blood Urea Nitrogen 18, Creatinine 1.15, Estimat Glomerular Filtration Rate 48, BUN/ Creatinine Ratio 16, Glucose Level 165H, Calcium Level 9.0, Corrected Calcium 9.7, Total Bilirubin 0.4, Aspartate Amino Transf (AST/SGOT) 14, Alanine Aminotransferase (ALT/SGPT) 6, Alkaline Phosphatase 102, Total Protein 6.5, Albumin 3.1L Current Funtional Status Continue aggressive therapy Would be ready at the first of the week Pain control Incision care Assessment/Plan Assessment and Plan Assessment: Debility following left hip fracture Renal cell carcinoma with metastases to the bone and lung Diabetes mellitus insulin-dependent CAD with recent stent placement on Brilinta managed by Dr. Keith at [facility] Chronic pain on fentanyl patch Acute constipation needs another SSE and Dr. Clements consultations appreciated and noted x-ray showing left colon constipation now on Reglan and multiple meds and some results Chronic lower extremity edema Hyperlipidemia Stomach ulcers 2 weeks ago requiring surgical intervention Anemia Stage I pressure ulcer coccyx placed on air mattress and Calmoseptine Nausea placed on Reglan improved now Plan: Start aggressive therapy Pain control Home meds Cardiology consult Maintain Brilinta Lovenox for DVT prophylaxis Constipation resolved Air mattress Reglan for nausea (1) Closed left hip fracture Qualifiers: Qualified Codes: S72.002D - Fracture of unspecified part of neck of left femur, subsequent encounter for closed fracture with routine healing Status: Acute (2) Constipation Qualifiers: Qualified Codes: K59.01 - Slow transit constipation Status: Resolved (3) Metastatic renal cell carcinoma to bone Status: Chronic (4) Diabetes mellitus Qualifiers: Qualified Codes: E11.59 - Type 2 diabetes mellitus with other circulatory complications; Z79.4 - group home (current) use of insulin Status: Chronic (5) Edema Qualifiers: Qualified Codes: R60.0 - Localized edema Status: Chronic (6) GERD (gastroesophageal reflux disease) Qualifiers: Qualified Codes: K21.9 - Gastro-esophageal reflux disease without esophagitis Status: Chronic (7) Chronic pain Qualifiers: Qualified Codes: G89.3 - Neoplasm related pain (acute) (chronic) Status: Chronic (8) DVT prophylaxis Status: Acute (9) Myocardial infarct, old Status: Chronic (10) Stomach ulcer Qualifiers: Qualified Codes: K25.9 - Gastric ulcer, unspecified as acute or chronic, without hemorrhage or perforation Status: Chronic (11) CAD (coronary artery disease) Qualifiers: Qualified Codes: I25.10 - Atherosclerotic heart disease of [place] coronary artery without angina pectoris Status: Chronic (12) Hip fracture requiring operative repair Qualifiers: Qualified Codes: S72.002D - Fracture of unspecified part of neck of left femur, subsequent encounter for closed fracture with routine healing Status: Acute (13) Pressure injury of coccygeal region, stage 1 Status: Acute Co-Morbidities that are continuing to impact the rehab process: (include details ) MICHELLE BONILLA DO Mar 29, 2018 09:03
[2018-03-29] MEDS: HYDROcodone/APAP 10 MG/325 MG (LORTAB) TAB PO PRN (09:20)
[2018-03-29] MEDS: ASPIRIN E.C. 81 MG (ECOTRIN) TAB PO SCH (09:21)
[2018-03-29] MEDS: PANTOPRAZOLE 40 MG (PROTONIX) TAB PO SCH ×2 (09:22→18:02)
[2018-03-29] MEDS: FENTANYL PATCH REMOVAL TP SCH (09:22)
[2018-03-29] MEDS: TICAGRELOR 90 MG TABLET (BRILINTA) PO SCH ×2 (09:22→20:13)
[2018-03-29] MEDS: fentaNYL PATCH 25 MCG (DURAGESIC) TD SCH (09:22)
[2018-03-29] MEDS: SENNA W/DOCUSATE (SENOKOT S) TABLET PO SCH ×2 (09:23→20:15)
[2018-03-29] MEDS: POLYETHYLENE GLYCOL 17 GM (MIRALAX) PACK PO SCH ×2 (09:23→20:15)
[2018-03-29] MEDS: inSUlin DETERMIR 1 UNIT/0.01 ML (LEVEMIR) CHARGE PER UNIT SQ SCH ×2 (09:24→21:15)
[2018-03-29 09:31] VITALS: BP 109/70
[2018-03-29] MEDS: MENTHOL/ZINC OXIDE (CALMOSEPTINE) 113 GM TUBE TOP SCH ×3 (09:45→20:18)
--- NOTE | 2018-03-29 10:21 | Physical Therapy Daily Note ---
PT Daily Note-Current Subjective Pt laying Supine in bed upon arrival. Pt agrees to PT. Pt reports pain in low bk. Pain Numeric Pain Scale: 9 Location: Lower Location Body Site: Back Pain Description: Ache, Radiating, Tightness Mental Status Patient Orientation: Person, Place, Time, Situation Transfers Therapy Code Descriptions/Definitions Functional [place] Measure: 0=Not Assessed/NA 4=Minimal Assistance 1=Total Assistance 5=Supervision or Setup 2=Maximal Assistance 6=Modified [place] 3=Moderate Assistance 7=Complete [place] Therapy Quality Codes: 6 Independent with activity with or without an assistive device 5 Patient requires set up or clean up by helper. Patient completes activity by themselves 4 Supervision or touching assist (CGA). [place] provide cues , steadying assist 3 The helper provides less than half the effort to complete the activity 2 The helper provides more than half the effort to complete the activity 1 Dependent. The helper does all the effort to complete an activity 7 Patient refused to complete or attempt activity 9 The patient did not perform the activity before the current illness or injury 88 Not attempted due to Medical conditions or safety concerns Scootin Supine to/from Sit: 5 Sit to/from Stand: 5 Sit to Lying (QC): 5 Sit to Stand (QC): 5 Weight Bearing Right Lower Extremity: Right Full Weight Bearing Left Lower Extremity: Left Weight Bearing/Tolerated Gait Training Does the Patient Walk?: Yes Distance (FIM): 3=150 ft Distance: 225' Walk 10 feet (QC): 5 Walk 50 ft with 2 Turns(QC): 5 Walk 150 ft (QC): 5 Gait Level of Assist: 5 Gait Persons Needed: 1 Gait Assistive Device: FWW Pt requires a couple of rest breaks during ambulation due to pain in low bk. Wheelchair Training Does the Pt Use a Wheelchair?: No Exercises Supine Ex: Ankle pumps, Quad Set, Glut sets, Heel Slides, Straight leg raise, Hip abd/add Supine Reps: 15 Treatments Pt completes supine Ex n bed with a couple of short rest breaks. Pt ambulates in hallway using FWW at SBA,rests then ambulates in hallway to Independent Living pt room to examine for possible room change. Pt returns to room to rest at end of tx. with all needs met. Assessment Current Status: Good Progress Pt continues to be motivated and push self to improve for discharge. PT Short Term Goals Short Term Goals Time Frame: Mar 29, 2018 Transfers (B,C,W/C) (FIM): 7 Gait (FIM): 5 Distance (FIM): 3=150 ft Gait Assistive Device: FWW Stairs (FIM): 2 # of Steps: 4 PT Financial Internship Goals Fci Goals PT Financial Internship Goals Time Frame: Apr 06, 2018 Transfers (B,C,W/C) (FIM): 6 Sit to Lying (QC): 6 Lying-Sitting on Side/Bed(QC): 6 Sit to Stand (QC): 6 Rollin Roll Left to Right (QC): 6 Chair/Nrz-tu-Gbryl Xfer(QC): 6 Car Transfer (QC): 6 Does the Patient Walk: Yes Gait (FIM): 6 Walk 10 feet (QC): 6 Walk 10ft-Uneven Surface(QC): 6 Walk 50ft with 2 Turns (QC): 6 Walk 150 ft (QC): 6 Gait Assistive Device: FWW Does the Pt use WC or Scooter?: No Stairs (FIM): 5 (household) # of Steps: 4 1 Step (curb) (QC): 6 4 Steps (QC): 6 12 Steps (QC): 88 Picking up an Object (QC): 88 PT Plan Problem List Problem List: Activity Tolerance, Functional Strength, Gait Treatment/Plan Treatment Plan: Continue Plan of Care Treatment Plan: Bed Mobility, Education, Functional Activity Gay, Functional Strength, Group Therapy, Gait, Safety, Therapeutic Exercise, Transfers Treatment Duration: Apr 06, 2018 Frequency: Modified Program (IRF) Estimated Hrs Per Day: 1.5 hours per day Patient and/or Family Agrees t: Yes Safety Risks/Education Patient Education: Gait Training, Transfer Techniques, Correct Positioning, Safety Issues Teaching Recipient: Patient Teaching Methods: Discussion Response to Teaching: Verbalize Understanding Time/GCodes Time In: 830 Time Out: 930 Total Billed Treatment Time: 60 Total Billed Treatment 1, GT x2 (30m), FA (15m) & EX (15m) G Codes Necessary: VI Souza PTA Mar 29, 2018 10:21
--- NOTE | 2018-03-29 12:02 | Cardiology Progress Note ---
Cardiology SOAP Progress Note Subjective: No cardiac complaints. Objective: I&O/Vital Signs 03/29/18 03/29/18 06:05 09:31 Temp 97.8 Pulse 84 87 Resp 18 20 B/P (MAP) 108/52 (70) 109/70 (83) Pulse Ox 99 96 O2 Delivery Room Air Room Air 03/28/18 23:59 Intake Total 800 ml Balance 800 ml Weight (Pounds): 176 Weight (Ounces): 1.6 Weight (Calculated Kilograms): 79.452655 Constitutional: appears stated age, AAO x 3; No apparent distress; well- developed, well-nourished Respiratory: No accessory muscle use, No respiratory distress, No chest tender , No chest expansion is symmetric; chest is bilaterally symmetric; No lungs clear to percussion; lungs clear to auscultation; No crackles, No rhonchi, No rales, No stridor, No wheezing, No pleural rub, No other Cardiovascular: regular rate-rhythm; No irregularly irregular, No extra beats, No parasternal heave is noted, No JVD, No edema, No bradycardia, No tachycardia , No point of maximal impulse, No cardiac thrills are palpable; S1 and S2; No gallop/S3, No gallop/S4, No diastolic murmur, No systolic murmur, No friction rub, No click, No other Gastrointestional: No tender, No soft, No round, No distended, No pulsatile mass, No organomegaly, No guarding, No rebound, No tenderness, No hernia, No mass, No audible bowel sounds, No abnormal bowel sounds, No abdominal bruits, No spleenomegaly, No other Extremities: No normal range of motion, No non-tender, No normal inspection, No pedal edema, No calf tenderness, No normal capillary refill, No pelvis stable , No calf tenderness, No inflammation, No pedal edema, No slow capillary refill , No swelling, No other, No abrasion, No clubbing, No cyanosis, No ecchymosis, No laceration, No no lower extremity edema bilateral, No significant edema, No tenderness, No wound Neurologic/Psychiatric: no motor/sensory deficits, alert, normal mood/affect, oriented x 3, power is 5/5 both on sides Skin: No normal color, No warm/dry, No cyanosis, No cool, No diaphoresis, No damp, No ecchymosis, No jaundice, No mottled, No pallor, No rash, No tattoos/ piercings, No ulcerations, No rash on exposed areas, No ulcerations on exposed areas, No other Results/Procedures: Labs Laboratory Tests 03/28/18 16:36: Glucometer 153H 03/28/18 20:45: Glucometer 219H 03/29/18 04:55: White Blood Count 10.2, Red Blood Count 3.46L, Hemoglobin 9.8L, Hematocrit 31L, Mean Corpuscular Volume 89, Mean Corpuscular Hemoglobin 28, Mean Corpuscular Hemoglobin Concent 32, Red Cell Distribution Width 14.8H, Platelet Count 485H, Mean Platelet Volume 9.3, Neutrophils (%) (Auto) 69, Lymphocytes (%) (Auto) 13, Monocytes (%) (Auto) 12, Eosinophils (%) (Auto) 6, Basophils (%) (Auto) 0, Neutrophils # (Auto) 7.0, Lymphocytes # (Auto) 1.3, Monocytes # (Auto) 1.2H, Eosinophils # (Auto) 0.6H, Basophils # (Auto) 0.0, Sodium Level 136, Potassium Level 4.3, Chloride Level 101, Carbon Dioxide Level 25, Anion Gap 10, Blood Urea Nitrogen 18, Creatinine 1.15, Estimat Glomerular Filtration Rate 48, BUN/ Creatinine Ratio 16, Glucose Level 165H, Calcium Level 9.0, Corrected Calcium 9.7, Total Bilirubin 0.4, Aspartate Amino Transf (AST/SGOT) 14, Alanine Aminotransferase (ALT/SGPT) 6, Alkaline Phosphatase 102, Total Protein 6.5, Albumin 3.1L 03/29/18 11:18: Glucometer 194H A/P: Assessment/Dx: Hip fracture, inpatient rehabilitation, History of TN/CAD/PCI, Borderline hypotension. improved after switching carvedilol, Hyperlipidemia, Hypertension, History of renal cell carcinoma. Plan: Hip fracture, inpatient rehabilitation, History of [place]/CAD/PCI, continue dual antiplatelet therapy with aspirin and Brilinta. Continue statin and beta lindsay. Borderline hypotension, DC carvedilol. Will switch to low dose metoprolol. Hyperlipidemia, pravastatin. Hypertension, carvedilol dced and started on low dose metoprolol. History of renal cell carcinoma. Thank you for your consultation. Please call me if you have any questions. Anton Potts MD, FACP, FACC, FSCAI, FHRS, CCDS Interventional Cardiology Cardiac Electrophysiology Vascular Medicine and Endovascular Interventions Velma POTTS MD Mar 29, 2018 12:02 pm
--- NOTE | 2018-03-29 12:45 | NUR ---
Pt states that she had been lightheaded in the morning yesterday for awhile, denies this today, have notified Dr. Potts as advised by Dr. Granados re: B/P medicine.
[2018-03-29] MEDS: meTOprolol TARTRATE 25 MG (LOPRESSOR) TABLET PO SCH ×2 (14:30→20:13)
--- NOTE | 2018-03-29 15:06 | Therapy Group Daily Note ---
Therapy Daily Group Note Patient Education Topic Other List Below (adaptive device uses demonstration for various tasks, ie opening some difficult objects ) Exercises LE Seated Exercise, UE Exercise Other/Notes Pt. attended group PT OT session this date with 3:1 ratio. Objectives of group: 1) understanding modified safe ways to open difficult to open objects which was demonstrated (met) 2) understanding of use of assistive devices for various tasks : demonstrated (met) Pt. came and went from group using FWW CGA. Pt. participated in introducing herself , utilized large foam dice to throw and share something about herself with coordinating numbered question ie, your favorite author. Pt. participated well in all seated U&L extremity exercises as lead by attending therapists. Pt. also participated in recalling the memory challenge words from last group session on Tuesday and helped establish more memory challenges for Tuesday group. Pt. to room after session with call ghotra at hand and needs met Start Time: 13:00 Stop Time: 14:20 Total Billed Treatment Time: 80 Total Billed Treatment 1,GRP ESHTELA MORAN LEARNING SPECIALIST Mar 29, 2018 15:06
--- NOTE | 2018-03-29 17:05 | NUR ---
Weekly team conference Discussed weekly team conference with patient. Tentative discharge date is set for 04/04/18. Patient is agreeable to continued stay with tentative dc date of 04/04/18. Patient does not have home health care benefits and will benefit from continued PT and OT in the inpatient rehab setting.
[2018-03-29] MEDS: ENOXAPARIN 40 MG/0.4 ML (LOVENOX) SYR SC SCH (18:06)
[2018-03-29] MEDS: CYCLOBENZAPRINE 10 MG (FLEXERIL) TAB PO PRN (18:12)
[2018-03-29 18:45] VITALS: BP 99/63
[2018-03-29] MEDS: SIMvastatin 20 MG (ZOCOR) TAB PO SCH (20:13)
[2018-03-30 06:00] VITALS: BP 98/65
[2018-03-30] MEDS: LACTOBACILLUS ACIDOPHILUS (PROBIOTIC) CAPSULE PO SCH ×3 (06:08→17:58)
--- NOTE | 2018-03-30 07:56 | Occupational Ther Daily Note ---
OT Current Status-Daily Note Subjective Pt alert, lying in bed. Pt agrees to therapy. No c/o pain at this time. Mental Status/Objective Patient Orientation: Person, Place, Time, Situation Therapy Code Descriptions/Definitions Functional [place] Measure: 0=Not Assessed/NA 4=Minimal Assistance 1=Total Assistance 5=Supervision or Setup 2=Maximal Assistance 6=Modified [place] 3=Moderate Assistance 7=Complete [place] ADL-Treatment Pt declined shower. Agrees to change clothing. After set up, pt able to complete own dressing. Using AE for lower body dressing. Therapy Code Descriptions/Definitions Functional [place] Measure: 0=Not Assessed/NA 4=Minimal Assistance 1=Total Assistance 5=Supervision or Setup 2=Maximal Assistance 6=Modified [place] 3=Moderate Assistance 7=Complete [place] Therapy Quality Codes: 6 Independent with activity with or without an assistive device 5 Patient requires set up or clean up by helper. Patient completes activity by themselves 4 Supervision or touching assist (CGA). [place] provide cues , steadying assist 3 The helper provides less than half the effort to complete the activity 2 The helper provides more than half the effort to complete the activity 1 Dependent. The helper does all the effort to complete an activity 7 Patient refused to complete or attempt activity 9 The patient did not perform the activity before the current illness or injury 88 Not attempted due to Medical conditions or safety concerns Grooming (FIM): 6 (Completes by self using FWW.) Oral Hygiene (QC): 6 Upper Body (FIM): 5 Upper Body Dressing (QC): 5 Lower Body Dressing (FIM): 5 Lower Body Dressing (QC): 5 On/Off Footwear (QC): 6 Toileting (FIM): 6 (Using grabbar, elevated seat with handles and FWW.) Toileting Hygiene (QC): 6 Toilet/Commode Transfer (FIM): 6 (Using FWW, elevated seat with handles and grabbar.) Toilet Transfer (QC): 6 Other Treatment Pt ambulates to therapy gym using FWW. Arm bike completed 15 min at 20 [place] resistance to increase UE strength and activity tolerance for daily functional tasks. Resistive clothespins completed 2x's with each hand to increase pinch/ business development officer strength for daily fine motor tasks. 3# hand wts used to complete 3 UE exercises 2x's 10 reps. Pt had difficulty with shldr exercises due to pain in L shldr. Pt ambulated back to room and sat in recliner after therapy. Call light/phone in reach. All needs met in room. OT Short Term Goals Short Term Goals Time Frame: Apr 05, 2018 Eating(FIM): 6 Grooming(FIM): 6 Bathing(FIM): 5 Bathing Location: L Arm, R Arm, L Upper Leg, R Upper Leg, L Lower Leg ( including foot), R Lower Leg (including foot), Chest, Abdomen, Buttocks, Perineal Area Upper Body Dressing(FIM): 7 Lower Body Dressing(FIM): 6 Toileting(FIM): 6 Transfers (B,C,W/C) (FIM): 7 Toilet/Commode Transfer(FIM): 7 Tub Transfer(FIM): 2 Shower Transfer(FIM): 7 Additional Short Term Goals: 1-Demonstrate ADL Tasks, 2-Verbalize Understanding , 3-ImproveStrength/Gay 1=Demonstrate adherence to instructed precautions during ADL tasks. 2=Patient will verbalize/demonstrate understanding of assistive devices/ modifications for ADL. 3=Patient will improve strength/tolerance for activity to enable patient to perform ADL's. OT Expert Witness Goals Expert Witness Goals Time Frame: Apr 19, 2018 Eating (FIM): 7 Eating (QC): 6 Groomin Oral Hygiene (QC): 6 Bathing(FIM): 6 Bathing Location: L Arm, R Arm, L Upper Leg, R Upper Leg, L Lower Leg ( including foot), R Lower Leg (including foot), Chest, Abdomen, Buttocks, Perineal Area Shower/Bathe Self (QC): 6 Upper Body Dressing(FIM): 7 Upper Body Dressing (QC): 6 Lower Body Dressing(FIM): 6 Lower Body Dressing (QC): 6 On/Off Footwear (QC): 6 Toileting(FIM): 6 Toileting Hygiene (QC): 6 Transfers (B,C,W/C) (FIM): 6 Toilet/Commode Transfer(FIM): 6 Toilet/Commode Transfer (QC): 6 Tub Transfer(FIM): 6 Shower Transfer(FIM): 6 Additional Goals: 1-Demonstrate ADL Tasks, 2-Verbalize Understanding, 3- ImproveStrength/Gay 1=Demonstrate adherence to instructed precautions during ADL tasks. 2=Patient will verbalize/demonstrate understanding of assistive devices/ modifications for ADL. 3=Patient will improve strength/tolerance for activity to enable patient to perform ADL's. OT Education/Plan Discharge Recommendations Plan/Recommendations: Continue POC Treatment Plan/Plan of Care Patient would benefit from OT for education, treatment and training to promote independence in ADL's, mobility, safety and/or upper extremity function for ADL' s. Plan of Care: ADL Retraining, Caregiver Training, Functional Mobility, Group Exercise/Act as Ind, UE Funct Exercise/Act, UE Neuromus Re-Ed/Coord Treatment Duration: Apr 19, 2018 Frequency: At least 5 of 7 days/Wk (IRF) Estimated Hrs Per Day: 1.5 hours per day Agreement: Yes Rehab Potential: Good Time/GCodes Start Time: 07:00 Stop Time: 08:00 Total Time Billed (hr/min): 60 Billed Treatment Time 1 visit-ADL 1 (15 min) EX 3 (45 min) ERIN VELASCO Mar 30, 2018 07:56
[2018-03-30] MEDS: HYDROcodone/APAP 10 MG/325 MG (LORTAB) TAB PO PRN (08:35)
[2018-03-30] MEDS: POLYETHYLENE GLYCOL 17 GM (MIRALAX) PACK PO SCH ×2 (08:36→20:05)
[2018-03-30] MEDS: PANTOPRAZOLE 40 MG (PROTONIX) TAB PO SCH ×2 (08:36→17:53)
[2018-03-30] MEDS: TICAGRELOR 90 MG TABLET (BRILINTA) PO SCH ×2 (08:36→20:04)
[2018-03-30] MEDS: ASPIRIN E.C. 81 MG (ECOTRIN) TAB PO SCH (08:36)
[2018-03-30] MEDS: SENNA W/DOCUSATE (SENOKOT S) TABLET PO SCH ×2 (08:37→20:06)
[2018-03-30] MEDS: inSUlin DETERMIR 1 UNIT/0.01 ML (LEVEMIR) CHARGE PER UNIT SQ SCH ×2 (08:37→20:46)
[2018-03-30 08:43] VITALS: BP 108/70
--- NOTE | 2018-03-30 08:45 | Cardiology Progress Note ---
Cardiology SOAP Progress Note Subjective: Mild dizziness this am with systolic BP < 100mmhg. Objective: I&O/Vital Signs 03/30/18 03/30/18 06:00 08:43 Temp 98.0 97.8 Pulse 89 102 Resp 18 18 B/P (MAP) 98/65 (76) 108/70 (83) Pulse Ox 95 98 O2 Delivery Room Air Room Air 03/30/18 00:00 Intake Total 930 ml Balance 930 ml Weight (Pounds): 176 Weight (Ounces): 1.6 Weight (Calculated Kilograms): 79.129204 Constitutional: appears stated age, AAO x 3; No apparent distress; well- developed, well-nourished Respiratory: No accessory muscle use, No respiratory distress, No chest tender , No chest expansion is symmetric; chest is bilaterally symmetric; No lungs clear to percussion; lungs clear to auscultation; No crackles, No rhonchi, No rales, No stridor, No wheezing, No pleural rub, No other Cardiovascular: regular rate-rhythm; No irregularly irregular, No extra beats, No parasternal heave is noted, No JVD, No edema, No bradycardia, No tachycardia , No point of maximal impulse, No cardiac thrills are palpable; S1 and S2; No gallop/S3, No gallop/S4, No diastolic murmur, No systolic murmur, No friction rub, No click, No other Gastrointestional: No tender, No soft, No round, No distended, No pulsatile mass, No organomegaly, No guarding, No rebound, No tenderness, No hernia, No mass, No audible bowel sounds, No abnormal bowel sounds, No abdominal bruits, No spleenomegaly, No other Extremities: No normal range of motion, No non-tender, No normal inspection, No pedal edema, No calf tenderness, No normal capillary refill, No pelvis stable , No calf tenderness, No inflammation, No pedal edema, No slow capillary refill , No swelling, No other, No abrasion, No clubbing, No cyanosis, No ecchymosis, No laceration, No no lower extremity edema bilateral, No significant edema, No tenderness, No wound Neurologic/Psychiatric: no motor/sensory deficits, alert, normal mood/affect, oriented x 3, power is 5/5 both on sides Skin: No normal color, No warm/dry, No cyanosis, No cool, No diaphoresis, No damp, No ecchymosis, No jaundice, No mottled, No pallor, No rash, No tattoos/ piercings, No ulcerations, No rash on exposed areas, No ulcerations on exposed areas, No other Results/Procedures: Labs Laboratory Tests 03/29/18 11:18: Glucometer 194H 03/29/18 16:26: Glucometer 200H 03/29/18 21:06: Glucometer 187H 03/30/18 06:07: Glucometer 191H A/P: Assessment/Dx: Hip fracture, inpatient rehabilitation, History of CT/CAD/PCI, Borderline hypotension with dizziness. improved after switching carvedilol, Hyperlipidemia, Hypertension, History of renal cell carcinoma. Plan: Hip fracture, inpatient rehabilitation, History of CT/CAD/PCI, continue dual antiplatelet therapy with aspirin and Brilinta. Continue statin and beta lindsay. Borderline hypotension with dizziness, check Echo. put parameters for BB dosing. Do not give if SBP < 110 mmhg. Hyperlipidemia, pravastatin. Hypertension, carvedilol dced and started on low dose metoprolol. History of renal cell carcinoma. Thank you for your consultation. Please call me if you have any questions. Anton Potts MD, FACP, FACC, FSCAI, FHRS, CCDS Interventional Cardiology Cardiac Electrophysiology Vascular Medicine and Endovascular Interventions Velma POTTS MD Mar 30, 2018 08:45
[2018-03-30] MEDS: meTOprolol TARTRATE 25 MG (LOPRESSOR) TABLET PO SCH ×2 (08:52→20:05)
--- NOTE | 2018-03-30 09:16 | NUR ---
Dr. Potts has given parameters re: B/P med, ordered echo for pt.
[2018-03-30] MEDS: MENTHOL/ZINC OXIDE (CALMOSEPTINE) 113 GM TUBE TOP SCH ×3 (09:45→20:09)
--- NOTE | 2018-03-30 11:06 | Physical Therapy Daily Note ---
PT Daily Note-Current Subjective Pt laying Supine after just finishing with OT upon arrival. Pt agrees to PT. Pain Numeric Pain Scale: 8 Location: Lower Location Body Site: Back Pain Description: Ache, Burning, Tightness Mental Status Patient Orientation: Person, Place, Time, Situation Transfers Therapy Code Descriptions/Definitions Functional [place] Measure: 0=Not Assessed/NA 4=Minimal Assistance 1=Total Assistance 5=Supervision or Setup 2=Maximal Assistance 6=Modified [place] 3=Moderate Assistance 7=Complete [place] Therapy Quality Codes: 6 Independent with activity with or without an assistive device 5 Patient requires set up or clean up by helper. Patient completes activity by themselves 4 Supervision or touching assist (CGA). [place] provide cues , steadying assist 3 The helper provides less than half the effort to complete the activity 2 The helper provides more than half the effort to complete the activity 1 Dependent. The helper does all the effort to complete an activity 7 Patient refused to complete or attempt activity 9 The patient did not perform the activity before the current illness or injury 88 Not attempted due to Medical conditions or safety concerns Scootin Rollin Supine to/from Sit: 5 Sit to/from Stand: 5 Sit to Lying (QC): 5 Sit to Stand (QC): 5 Weight Bearing Right Lower Extremity: Right Full Weight Bearing Left Lower Extremity: Left Weight Bearing/Tolerated Gait Training Does the Patient Walk?: Yes Distance (FIM): 3=150 ft Distance: 150' Walk 10 feet (QC): 5 Walk 50 ft with 2 Turns(QC): 5 Walk 150 ft (QC): 5 Gait Level of Assist: 5 Gait Persons Needed: 1 Gait Assistive Device: FWW Pt's bk pain is consistent even while walking. Wheelchair Training Does the Pt Use a Wheelchair?: No Stair Training Stair Training: Handrails/: 2 handrails #of Steps: 4 1 Step (curb) (QC): 5 4 Steps (QC): 5 Stairs: Pattern: Step to Level of Assist: 5 Exercises Supine Ex: Ankle pumps, Quad Set, Glut sets, Heel Slides, Straight leg raise, Hip abd/add Supine Reps: 20 Treatments Pt completes Supine Ex in bed with a few short rest breaks. Pt transfers from bed and ambulates in hallway using FWW at [facility]. Pt completes Seated Ex in chair. Pt returns to bed to rest and relieve pain. Pt has all needs met. Assessment Current Status: Good Progress Pt is made Ad stephen in room today. Pt is motivated and does not let pain limit participation in Therapy. PT Short Term Goals Short Term Goals Time Frame: Mar 29, 2018 Transfers (B,C,W/C) (FIM): 7 Gait (FIM): 5 Distance (FIM): 3=150 ft Gait Assistive Device: FWW Stairs (FIM): 2 # of Steps: 4 PT Residential Goals Accountant Clerk Goals PT Accountant Clerk Goals Time Frame: Apr 06, 2018 Transfers (B,C,W/C) (FIM): 6 Sit to Lying (QC): 6 Lying-Sitting on Side/Bed(QC): 6 Sit to Stand (QC): 6 Rollin Roll Left to Right (QC): 6 Chair/Vkk-nb-Cxqav Xfer(QC): 6 Car Transfer (QC): 6 Does the Patient Walk: Yes Gait (FIM): 6 Walk 10 feet (QC): 6 Walk 10ft-Uneven Surface(QC): 6 Walk 50ft with 2 Turns (QC): 6 Walk 150 ft (QC): 6 Gait Assistive Device: FWW Does the Pt use WC or Scooter?: No Stairs (FIM): 5 (household) # of Steps: 4 1 Step (curb) (QC): 6 4 Steps (QC): 6 12 Steps (QC): 88 Picking up an Object (QC): 88 PT Plan Problem List Problem List: Activity Tolerance, Functional Strength, Gait Treatment/Plan Treatment Plan: Continue Plan of Care Treatment Plan: Bed Mobility, Education, Functional Activity Gay, Functional Strength, Group Therapy, Gait, Safety, Therapeutic Exercise, Transfers Treatment Duration: Apr 06, 2018 Frequency: Modified Program (IRF) Estimated Hrs Per Day: 1.5 hours per day Patient and/or Family Agrees t: Yes Safety Risks/Education Patient Education: Gait Training, Transfer Techniques, Correct Positioning, Disease Process, Safety Issues Teaching Recipient: Patient Teaching Methods: Discussion Response to Teaching: Verbalize Understanding Time/GCodes Time In: 800 Time Out: 900 Total Billed Treatment Time: 60 Total Billed Treatment 1, GT (20m), GT x2 (30m) & FA (10m) G Codes Necessary: No VI GILLETTE ELECTRIC RANGE SERVICER Mar 30, 2018 11:06
[2018-03-30] MEDS: RT-ALBUTEROL/IPRATROPIUM 3 ML (DUONEB) VIAL INH SCH ×3 (11:10→19:36)
--- NOTE | 2018-03-30 13:19 | Physician Query Clarification ---
PQ-Further Specificity Admission/Discharge Admission Date: Mar 22, 2018 at 14:10 Discharge Date: The medical record reflects the following clinical scenario: History/Risk Factors: LT femoral neck fracture, bone mets Clinical Findings: Lt femoral neck fracture, bone mets Treatment: rehab, chemo, radiation therapy Question: Can you further specify Lt femoral neck fracture per the clinical indicators above? Please document below. 1. Lt femoral neck fracture due to bone mets 2. Lt femoral neck fracture due to trauma. If due to trauma please further specify the part of the neck that's fractured 3. Other, with explanation of the clinical findings. 4. Clinically undetermined, no explanation for the clinical findings. PHYSICIAN RESPONSE Can you specify per above: 2 Explanation/Clinical Findings I don't know where fractured In responding to this query, please exercise your independent professional judgment. The purpose of this communication is to more accurately reflect the complexity of your patients condition. The fact that a question is asked does not imply that any particular answer is desired or expected. Thank you for your timely response to this clarification. Requestors name: Carey THIS PHYSICIAN QUERY FORM IS A PERMANENT PART OF THE MEDICAL RECORD CAREY CARO Mar 30, 2018 13:19 MICHELLE BONILLA DO Mar 30, 2018 18:17
--- NOTE | 2018-03-30 13:23 | Physician Query Clarification ---
PQ-Further Specificity Admission/Discharge Admission Date: Mar 22, 2018 at 14:10 Discharge Date: The medical record reflects the following clinical scenario: History/Risk Factors: renal cell carcinoma with mets to bone and lung, Lt femoral neck fx Clinical Findings: renal cell carcinoma with mets to bone and lung Treatment: radiation, chemo Question: Can you further specify the laterality of the lung mets per the clinical indicators above? Please document below. 1. Rt. lung mets 2. Lt lung mets 3 Danny lung mets 4. Other, with explanation of the clinical findings. 5. Clinically undetermined, no explanation for the clinical findings. PHYSICIAN RESPONSE Can you specify per above: 1 In responding to this query, please exercise your independent professional judgment. The purpose of this communication is to more accurately reflect the complexity of your patients condition. The fact that a question is asked does not imply that any particular answer is desired or expected. Thank you for your timely response to this clarification. Requestors name: Carey THIS PHYSICIAN QUERY FORM IS A PERMANENT PART OF THE MEDICAL RECORD CAREY CARO Mar 30, 2018 13:23 MICHELLE BONILLA DO Mar 30, 2018 18:17
[2018-03-30] MEDS: CYCLOBENZAPRINE 10 MG (FLEXERIL) TAB PO PRN (14:00)
--- NOTE | 2018-03-30 14:02 | Physical Therapy Daily Note ---
PT Daily Note-Current Subjective Pt laying Supine in bed upon arrival. Pt agrees to PT. Pain Numeric Pain Scale: 7 Location: Lower Location Body Site: Back Pain Description: Ache, Tightness Mental Status Patient Orientation: Person, Place, Time, Situation Transfers Therapy Code Descriptions/Definitions Functional [place] Measure: 0=Not Assessed/NA 4=Minimal Assistance 1=Total Assistance 5=Supervision or Setup 2=Maximal Assistance 6=Modified [place] 3=Moderate Assistance 7=Complete [place] Therapy Quality Codes: 6 Independent with activity with or without an assistive device 5 Patient requires set up or clean up by helper. Patient completes activity by themselves 4 Supervision or touching assist (CGA). [place] provide cues , steadying assist 3 The helper provides less than half the effort to complete the activity 2 The helper provides more than half the effort to complete the activity 1 Dependent. The helper does all the effort to complete an activity 7 Patient refused to complete or attempt activity 9 The patient did not perform the activity before the current illness or injury 88 Not attempted due to Medical conditions or safety concerns Scootin Rollin Supine to/from Sit: 5 Sit to/from Stand: 5 Sit to Lying (QC): 5 Sit to Stand (QC): 5 Weight Bearing Right Lower Extremity: Right Full Weight Bearing Left Lower Extremity: Left Weight Bearing/Tolerated Gait Training Does the Patient Walk?: Yes Distance (FIM): 3=150 ft Distance: 150' Walk 10 feet (QC): 5 Walk 50 ft with 2 Turns(QC): 5 Walk 150 ft (QC): 5 Gait Level of Assist: 5 Gait Persons Needed: 1 Gait Assistive Device: FWW Wheelchair Training Does the Pt Use a Wheelchair?: No Exercises Supine Ex: Ankle pumps, Quad Set, Glut sets, Heel Slides, Straight leg raise, Hip abd/add Supine Reps: 15 Treatments Pt completes Supine Ex in bed to get ROM before ambulation. Pt transfers from bed and ambulates in hallway using FWW at [facility]. Pt returns to bed at end of walk to rest with all needs met. Assessment Current Status: Good Progress Pt fatigues but quickly recovers. PT Short Term Goals Short Term Goals Time Frame: Mar 29, 2018 Transfers (B,C,W/C) (FIM): 7 Gait (FIM): 5 Distance (FIM): 3=150 ft Gait Assistive Device: FWW Stairs (FIM): 2 # of Steps: 4 PT Materials Director Goals Materials Director Goals PT Materials Director Goals Time Frame: Apr 06, 2018 Transfers (B,C,W/C) (FIM): 6 Sit to Lying (QC): 6 Lying-Sitting on Side/Bed(QC): 6 Sit to Stand (QC): 6 Rollin Roll Left to Right (QC): 6 Chair/Ule-bc-Mnmup Xfer(QC): 6 Car Transfer (QC): 6 Does the Patient Walk: Yes Gait (FIM): 6 Walk 10 feet (QC): 6 Walk 10ft-Uneven Surface(QC): 6 Walk 50ft with 2 Turns (QC): 6 Walk 150 ft (QC): 6 Gait Assistive Device: FWW Does the Pt use WC or Scooter?: No Stairs (FIM): 5 (household) # of Steps: 4 1 Step (curb) (QC): 6 4 Steps (QC): 6 12 Steps (QC): 88 Picking up an Object (QC): 88 PT Plan Problem List Problem List: Activity Tolerance, Safety, Balance, Gait Treatment/Plan Treatment Plan: Continue Plan of Care Treatment Plan: Bed Mobility, Education, Functional Activity Gay, Functional Strength, Group Therapy, Gait, Safety, Therapeutic Exercise, Transfers Treatment Duration: Apr 06, 2018 Frequency: Modified Program (IRF) Estimated Hrs Per Day: 1.5 hours per day Patient and/or Family Agrees t: Yes Safety Risks/Education Patient Education: Gait Training, Transfer Techniques, Correct Positioning, Safety Issues Teaching Recipient: Patient Teaching Methods: Discussion Response to Teaching: Verbalize Understanding Time/GCodes Time In: 1330 Time Out: 1400 Total Billed Treatment Time: 30 Total Billed Treatment 1, GT (15m) & EX (15m) G Codes Necessary: No VI GILLETTE CNA LTC Mar 30, 2018 14:02
--- NOTE | 2018-03-30 14:02 | NUR ---
PT, Tamiko Smith, states that they have instructed pt that she can be up ad stephen in the room. RN instructed pt to not hesitate to turn on the call lt if she needed anything, though, especially at night, to avoid falls. Pt verbalized understanding. Pt resting in bed, 2 rails up, call lt in hand, watching tv, pt states that she is going to take a nap, pt asked for & was given Flexeril.
--- NOTE | 2018-03-30 14:59 | Occupational Ther Daily Note ---
OT Current Status-Daily Note Subjective Pt alert, lying in bed. Pt agrees to therapy. No c/o pain at this time. Mental Status/Objective Patient Orientation: Person, Place, Time, Situation Therapy Code Descriptions/Definitions Functional [place] Measure: 0=Not Assessed/NA 4=Minimal Assistance 1=Total Assistance 5=Supervision or Setup 2=Maximal Assistance 6=Modified [place] 3=Moderate Assistance 7=Complete [place] ADL-Treatment Therapy Code Descriptions/Definitions Functional [place] Measure: 0=Not Assessed/NA 4=Minimal Assistance 1=Total Assistance 5=Supervision or Setup 2=Maximal Assistance 6=Modified [place] 3=Moderate Assistance 7=Complete [place] Therapy Quality Codes: 6 Independent with activity with or without an assistive device 5 Patient requires set up or clean up by helper. Patient completes activity by themselves 4 Supervision or touching assist (CGA). [place] provide cues , steadying assist 3 The helper provides less than half the effort to complete the activity 2 The helper provides more than half the effort to complete the activity 1 Dependent. The helper does all the effort to complete an activity 7 Patient refused to complete or attempt activity 9 The patient did not perform the activity before the current illness or injury 88 Not attempted due to Medical conditions or safety concerns Other Treatment Pt ambulated to large shower room. Problem solved getting into/out of garden tub at pt's home. Demonstrated tub transfer bench and pt verbalized understanding. Pt then ambulated around ARU prior to returning to room. After therapy, pt lying in bed with call light in reach. All needs met in room. OT Short Term Goals Short Term Goals Time Frame: Apr 05, 2018 Eating(FIM): 6 Grooming(FIM): 6 Bathing(FIM): 5 Bathing Location: L Arm, R Arm, L Upper Leg, R Upper Leg, L Lower Leg ( including foot), R Lower Leg (including foot), Chest, Abdomen, Buttocks, Perineal Area Upper Body Dressing(FIM): 7 Lower Body Dressing(FIM): 6 Toileting(FIM): 6 Transfers (B,C,W/C) (FIM): 7 Toilet/Commode Transfer(FIM): 7 Tub Transfer(FIM): 2 Shower Transfer(FIM): 7 Additional Short Term Goals: 1-Demonstrate ADL Tasks, 2-Verbalize Understanding , 3-ImproveStrength/Gay 1=Demonstrate adherence to instructed precautions during ADL tasks. 2=Patient will verbalize/demonstrate understanding of assistive devices/ modifications for ADL. 3=Patient will improve strength/tolerance for activity to enable patient to perform ADL's. OT Boilermaker Goals Senior Living Goals Time Frame: Apr 19, 2018 Eating (FIM): 7 Eating (QC): 6 Groomin Oral Hygiene (QC): 6 Bathing(FIM): 6 Bathing Location: L Arm, R Arm, L Upper Leg, R Upper Leg, L Lower Leg ( including foot), R Lower Leg (including foot), Chest, Abdomen, Buttocks, Perineal Area Shower/Bathe Self (QC): 6 Upper Body Dressing(FIM): 7 Upper Body Dressing (QC): 6 Lower Body Dressing(FIM): 6 Lower Body Dressing (QC): 6 On/Off Footwear (QC): 6 Toileting(FIM): 6 Toileting Hygiene (QC): 6 Transfers (B,C,W/C) (FIM): 6 Toilet/Commode Transfer(FIM): 6 Toilet/Commode Transfer (QC): 6 Tub Transfer(FIM): 6 Shower Transfer(FIM): 6 Additional Goals: 1-Demonstrate ADL Tasks, 2-Verbalize Understanding, 3- ImproveStrength/Gay 1=Demonstrate adherence to instructed precautions during ADL tasks. 2=Patient will verbalize/demonstrate understanding of assistive devices/ modifications for ADL. 3=Patient will improve strength/tolerance for activity to enable patient to perform ADL's. OT Education/Plan Discharge Recommendations Plan/Recommendations: Continue POC Treatment Plan/Plan of Care Patient would benefit from OT for education, treatment and training to promote independence in ADL's, mobility, safety and/or upper extremity function for ADL' s. Plan of Care: ADL Retraining, Caregiver Training, Functional Mobility, Group Exercise/Act as Ind, UE Funct Exercise/Act, UE Neuromus Re-Ed/Coord Treatment Duration: Apr 19, 2018 Frequency: At least 5 of 7 days/Wk (IRF) Estimated Hrs Per Day: 1.5 hours per day Agreement: Yes Rehab Potential: Good Time/GCodes Start Time: 12:30 Stop Time: 13:00 Total Time Billed (hr/min): 30 Billed Treatment Time 1 visit-FA 2 (30 min) ERIN VELASCO Mar 30, 2018 14:59
[2018-03-30] MEDS: ENOXAPARIN 40 MG/0.4 ML (LOVENOX) SYR SC SCH (17:53)
[2018-03-30 18:05] VITALS: BP 96/61
[2018-03-30] MEDS: SIMvastatin 20 MG (ZOCOR) TAB PO SCH (20:04)
--- NOTE | 2018-03-30 21:56 | PM&R Progress Note ---
Subjective HPI/CC On Admission Date Seen by Provider: Mar 30, 2018 Time Seen by Provider: 08:30 CC: Left hip fracture recovery HPI: This is a 62-year-old white female with a known history of renal cell carcinoma managed by Dr. Herb Wilcox oncology at [facility] whose primary care provider is Dr. Evelio barrow [place] who presents to inpatient rehabilitation for aggressive therapy following a left hip fracture. Apparently she sustained a fall suffered a left hip fracture and had an uncomplicated repair at [facility]. She had recent coronary artery stent placement maintained on Brilinta and patient was monitored closely for any recurrence of acute coronary syndrome. I have reviewed and restarted all of her home medication including Lovenox for DVT prophylaxis of 40 mg subcutaneous daily. Patient reports pain is controlled currently and is ready to start her therapies. Subjective/Events-last exam Patient doing very well Having a bit of a cough and noted wheezing on exam so we will start nebulizer treatments and I updated respiratory therapy Pain is well controlled Bowels are moving well Eating better Getting close to DC and back home Review of Systems General: Fatigue Pulmonary: Cough Objective Exam Vital Signs Vital Signs Date Time Temp Pulse Resp B/P (MAP) Pulse Ox O2 Delivery O2 Flow Rate FiO2 03/30/18 21:00 Room Air 03/30/18 19:36 93 03/30/18 18:05 98.0 98 20 96/61 (73) Capillary Refill : General Appearance: No Apparent Distress, WD/WN, Chronically ill, Thin Respiratory: Chest Non Tender, No Accessory Muscle Use, No Respiratory Distress , Crackles, Wheezing Cardiovascular: Regular Rate, Rhythm, No Edema, No Gallop, No JVD, No Murmur, Normal Peripheral Pulses Neurologic/Psychiatric: Alert, Oriented x3, No Motor/Sensory Deficits, Normal Mood/Affect Results/Procedures Lab Patient resulted labs reviewed. Assessment/Plan Assessment and Plan Assess & Plan/Chief Complaint Assessment: Debility following left hip fracture Renal cell carcinoma with metastases to the bone and lung Diabetes mellitus insulin-dependent CAD with recent stent placement on Brilinta managed by Dr. Keith at [place] Chronic pain on fentanyl patch Acute constipation needs another SSE and Dr. Clements consultations appreciated and noted x-ray showing left colon constipation now on Reglan and multiple meds and some results Chronic lower extremity edema Hyperlipidemia Stomach ulcers 2 weeks ago requiring surgical intervention Anemia Stage I pressure ulcer coccyx placed on air mattress and Calmoseptine Nausea placed on Reglan improved now Wheezing so started Nebs Plan: Start aggressive therapy Pain control Home meds Cardiology consult Maintain Brilinta Lovenox for DVT prophylaxis Constipation resolved Air mattress Reglan for nausea Nebs Diagnosis/Problems Diagnosis/Problems (1) Closed left hip fracture Status: Acute Qualifiers: Encounter type: subsequent encounter Fracture healing: with routine healing Qualified Codes: S72.002D - Fracture of unspecified part of neck of left femur, subsequent encounter for closed fracture with routine healing (2) Constipation Status: Resolved Qualifiers: Constipation type: slow transit constipation Qualified Codes: K59.01 - Slow transit constipation Resolution Date/Time: 03/27/18 @ 12:59 (3) Metastatic renal cell carcinoma to bone Status: Chronic (4) Diabetes mellitus Status: Chronic Qualifiers: Diabetes mellitus type: type 2 Diabetes mellitus alley cleaner insulin use: with alley cleaner use Diabetes mellitus complication status: with circulatory complication Diabetes mellitus complication detail: with other circulatory complications Qualified Codes: E11.59 - Type 2 diabetes mellitus with other circulatory complications; Z79.4 - manager ambulatory (current) use of insulin (5) Edema Status: Chronic Qualifiers: Edema type: localized Qualified Codes: R60.0 - Localized edema (6) GERD (gastroesophageal reflux disease) Status: Chronic Qualifiers: Esophagitis presence: without esophagitis Qualified Codes: K21.9 - Gastro- esophageal reflux disease without esophagitis (7) Chronic pain Status: Chronic Qualifiers: Chronic pain type: due to neoplasm Qualified Codes: G89.3 - Neoplasm related pain (acute) (chronic) (8) DVT prophylaxis Status: Acute (9) Myocardial infarct, old Status: Chronic (10) Stomach ulcer Status: Chronic Qualifiers: Gastric ulcer chronicity: unspecified ulcer chronicity Gastric ulcer complication status: unspecified whether hemorrhage or perforation present Qualified Codes: K25.9 - Gastric ulcer, unspecified as acute or chronic, without hemorrhage or perforation (11) CAD (coronary artery disease) Status: Chronic Qualifiers: Coronary Disease-Associated Artery/Lesion type: [place] artery [place] vs. transplanted heart: [place] heart Associated angina: without angina Qualified Codes: I25.10 - Atherosclerotic heart disease of [place] coronary artery without angina pectoris (12) Hip fracture requiring operative repair Status: Acute Qualifiers: Encounter type: subsequent encounter Fracture type: closed Laterality: left Fracture healing: with routine healing Qualified Codes: S72.002D - Fracture of unspecified part of neck of left femur, subsequent encounter for closed fracture with routine healing (13) Pressure injury of coccygeal region, stage 1 Status: Acute Assessment & Plan: air mattress (14) Wheezing Status: Acute (15) COPD (chronic obstructive pulmonary disease) Status: Chronic Qualifiers: COPD type: unspecified COPD Qualified Codes: J44.9 - Chronic obstructive pulmonary disease, unspecified Clinical Quality Measures DVT/VTE Risk/Contraindication: Risk Factor Score Per Nursin RFS Level Per Nursing on Admit: 2=Moderate MICHELLE BONILLA DO Mar 30, 2018 21:55
[2018-03-31 05:58] VITALS: BP 126/70
[2018-03-31] MEDS: LACTOBACILLUS ACIDOPHILUS (PROBIOTIC) CAPSULE PO SCH ×3 (06:19→17:16)
[2018-03-31] MEDS: POLYETHYLENE GLYCOL 17 GM (MIRALAX) PACK PO SCH ×2 (09:17→20:22)
[2018-03-31] MEDS: ASPIRIN E.C. 81 MG (ECOTRIN) TAB PO SCH (09:20)
[2018-03-31] MEDS: SENNA W/DOCUSATE (SENOKOT S) TABLET PO SCH ×2 (09:20→20:22)
[2018-03-31] MEDS: meTOprolol TARTRATE 25 MG (LOPRESSOR) TABLET PO SCH ×2 (09:20→20:22)
[2018-03-31] MEDS: PANTOPRAZOLE 40 MG (PROTONIX) TAB PO SCH ×2 (09:20→17:16)
[2018-03-31] MEDS: TICAGRELOR 90 MG TABLET (BRILINTA) PO SCH ×2 (09:20→20:21)
[2018-03-31] MEDS: MENTHOL/ZINC OXIDE (CALMOSEPTINE) 113 GM TUBE TOP SCH ×3 (09:21→20:21)
[2018-03-31] MEDS: inSUlin DETERMIR 1 UNIT/0.01 ML (LEVEMIR) CHARGE PER UNIT SQ SCH ×2 (09:26→20:21)
[2018-03-31] MEDS: RT-ALBUTEROL/IPRATROPIUM 3 ML (DUONEB) VIAL INH SCH ×3 (10:12→19:39)
--- NOTE | 2018-03-31 10:17 | NUR ---
Aura is a 62 yo female present with a left hip fx post ORIF. Patient is A&O X4 and denies pain at this time but does have a Fentanyl patch located on her RLQ. Patient does have a productive cough present, lung are clear to auscultation. Dr. Granados is aware of the productive cough and is continuing breathing treatments at this time. Patient is also running soft BP's at time, this morning BP was 119/76. It was also noted patient has a fluid pocket present on her left elbow, Dr. Granados assessed and ordered patient to have an MARIAELENA wrap to LUE. No other issues noted at this time, will continue to monitor patient.
[2018-03-31] MEDS: HYDROcodone/APAP 10 MG/325 MG (LORTAB) TAB PO PRN ×2 (10:47→20:21)
--- NOTE | 2018-03-31 11:35 | Cardiology Progress Note ---
Cardiology SOAP Progress Note Subjective: Mild shortness of breath Objective: I&O/Vital Signs 04/01/18 04/01/18 04/01/18 06:31 07:16 09:00 Temp 98.2 Pulse 78 Resp 18 B/P (MAP) 98/60 (73) Pulse Ox 93 94 O2 Delivery Room Air Room Air Room Air 04/01/18 00:00 Intake Total 1400 ml Balance 1400 ml Weight (Pounds): 176 Weight (Ounces): 1.6 Weight (Calculated Kilograms): 79.733324 Constitutional: appears stated age, AAO x 3; No apparent distress; well- developed, well-nourished Respiratory: No accessory muscle use, No respiratory distress, No chest tender , No chest expansion is symmetric; chest is bilaterally symmetric; No lungs clear to percussion; lungs clear to auscultation; No crackles, No rhonchi, No rales, No stridor, No wheezing, No pleural rub, No other Cardiovascular: regular rate-rhythm; No irregularly irregular, No extra beats, No parasternal heave is noted, No JVD, No edema, No bradycardia, No tachycardia , No point of maximal impulse, No cardiac thrills are palpable; S1 and S2; No gallop/S3, No gallop/S4, No diastolic murmur, No systolic murmur, No friction rub, No click, No other Gastrointestional: No tender, No soft, No round, No distended, No pulsatile mass, No organomegaly, No guarding, No rebound, No tenderness, No hernia, No mass, No audible bowel sounds, No abnormal bowel sounds, No abdominal bruits, No spleenomegaly, No other Extremities: No normal range of motion, No non-tender, No normal inspection, No pedal edema, No calf tenderness, No normal capillary refill, No pelvis stable , No calf tenderness, No inflammation, No pedal edema, No slow capillary refill , No swelling, No other, No abrasion, No clubbing, No cyanosis, No ecchymosis, No laceration, No no lower extremity edema bilateral, No significant edema, No tenderness, No wound Neurologic/Psychiatric: no motor/sensory deficits, alert, normal mood/affect, oriented x 3, power is 5/5 both on sides Skin: No normal color, No warm/dry, No cyanosis, No cool, No diaphoresis, No damp, No ecchymosis, No jaundice, No mottled, No pallor, No rash, No tattoos/ piercings, No ulcerations, No rash on exposed areas, No ulcerations on exposed areas, No other Results/Procedures: Labs Laboratory Tests 03/31/18 16:22: Glucometer 148H 03/31/18 20:20: Glucometer 170H 04/01/18 06:00: Glucometer 125H 04/01/18 10:50: Glucometer 171H A/P: Assessment/Dx: Hip fracture, inpatient rehabilitation, History of MD/CAD/PCI, 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 improved after switching carvedilol, Hyperlipidemia, Hypertension, History of renal cell carcinoma with metastases to the lungs. Plan: Hip fracture, inpatient rehabilitation, History of MD/CAD/PCI, continue dual antiplatelet therapy with aspirin and Brilinta. Continue statin and beta lindsay. Echocardiogram showed EF of 30-35 percent. Dilated LV suggesting dilated ischemic cardiomyopathy. I discussed at length with the patient and had a long conversation about her wishes and how aggressive showed her cardiac care be. Due to the fact that she has stage IV cancer. A lifevest will be for 3 months and is used as a bridge to either an ICD or if the EF improves to continue his medical therapy. I also did tell her that in all ICD trials benefit is seen in those patients that have a survival of at least 18 months to 2 years. She tells me that her cancer is in remission and her oncologist is in [place]. It is not possible to get hold of the oncologist over the weekend. I also discussed at length with the patient's daughter. What we have mutually decided is to go ahead with a lifevest and then as an outpatient she can have a discussion with her upholstery mechanic Dr. Encarnacion and her oncologist about prognosis of her stage IV cancer and whether or not she'll be a candidate for further primary prevention of sudden cardiac . Ischemic cardiomyopathy, however the patient is euvolemic therefore will avoid Lasix. Borderline hypotension with dizziness, put parameters for BB dosing. Do not give if SBP < 110 mmhg. Hyperlipidemia, pravastatin. Hypertension, carvedilol dced and started on low dose metoprolol. History of renal cell carcinoma. Over 60 minutes were spent discussing her care with herself and her daughter. Thank you for your consultation. Please call me if you have any questions. Anton Potts MD, FACP, FACC, FSCAI, FHRS, CCDS Interventional Cardiology Cardiac Electrophysiology Vascular Medicine and Endovascular Interventions Velma POTTS MD Mar 31, 2018 11:35 am
--- NOTE | 2018-03-31 11:48 | PM&R Progress Note ---
Subjective This was a face to face visit with the patient. Date Seen by Provider: Mar 31, 2018 Time Seen by Provider: 09:00 Subjective/Events-last exam Patient was seen in her room. Echocardiogram revealed less than 30% ejection fraction so LifeVest may very well be in order but considering the metastasis to the bone and may be contraindicated Dr. Potts updated the patient and she seems to have over reacted and thinking she needs hospice and she will soon but considering she has a spot of renal cell carcinoma with metastasis 3 years longer than when they told her she would pass away which she has been very clear in telling me this it seems that she needs to be reassured and cardiology did speak with her again and daughter and at the bedside are very understanding and trying to calm her so we will try to hold off on discharge that she has requested. Holding blood pressure medication due to systolic being less than 110 Viral wrap to left elbow will be initiated because it appears that she has a mild case of bursitis. Date Identified: Mar 31, 2018 Time Identified: 09:00 Medication Intervention: EF < 30% needs Lifevest Review of Systems Musculoskeletal: leg pain Neurological: Weakness Objective Physician Exam Last Set of Vital Signs Vital Signs Date Time Temp Pulse Resp B/P (MAP) Pulse Ox O2 Delivery O2 Flow Rate FiO2 03/31/18 10:12 94 Room Air 03/31/18 05:58 97.8 105 18 126/70 (88) Capillary Refill : I&O Intake and Output 03/31/18 00:00 Intake Total 1600 ml Balance 1600 ml Intake Oral 1600 ml # Voids 7 # Bowel Movements 3 General: Alert, Oriented X3, Cooperative, No Acute Distress HEENT: Atraumatic, PERRLA Neck: Supple, No JVD, No Thyromegaly, +2 Carotid Pulse No Bruit, No LAD Lungs: Clear to Auscultation, Normal Air Movement Heart: Regular Rate, Normal S1, Normal S2, No Murmurs Abdomen: Normal Bowel Sounds, Soft, No Tenderness, No Hepatosplenomegaly, No Masses Extremities: No Clubbing, No Cyanosis, No Edema, Normal Pulses, No Tenderness/ Swelling Skin: No Rashes, No Breakdown, No Significant Lesion Neuro: Normal Speech, Normal Tone, Sensation Intact, Cranial Nerves 3-12 NL, Reflexes 2+, Other (Decreased range of motion left leg) Psych/Mental Status: Mental Status NL, Mood NL Results Lab Data Laboratory Tests 03/28/18 16:36: Glucometer 153H 03/28/18 20:45: Glucometer 219H 03/29/18 04:55: White Blood Count 10.2, Red Blood Count 3.46L, Hemoglobin 9.8L, Hematocrit 31L, Mean Corpuscular Volume 89, Mean Corpuscular Hemoglobin 28, Mean Corpuscular Hemoglobin Concent 32, Red Cell Distribution Width 14.8H, Platelet Count 485H, Mean Platelet Volume 9.3, Neutrophils (%) (Auto) 69, Lymphocytes (%) (Auto) 13, Monocytes (%) (Auto) 12, Eosinophils (%) (Auto) 6, Basophils (%) (Auto) 0, Neutrophils # (Auto) 7.0, Lymphocytes # (Auto) 1.3, Monocytes # (Auto) 1.2H, Eosinophils # (Auto) 0.6H, Basophils # (Auto) 0.0, Sodium Level 136, Potassium Level 4.3, Chloride Level 101, Carbon Dioxide Level 25, Anion Gap 10, Blood Urea Nitrogen 18, Creatinine 1.15, Estimat Glomerular Filtration Rate 48, BUN/ Creatinine Ratio 16, Glucose Level 165H, Calcium Level 9.0, Corrected Calcium 9.7, Total Bilirubin 0.4, Aspartate Amino Transf (AST/SGOT) 14, Alanine Aminotransferase (ALT/SGPT) 6, Alkaline Phosphatase 102, Total Protein 6.5, Albumin 3.1L 03/29/18 11:18: Glucometer 194H 03/29/18 16:26: Glucometer 200H 03/29/18 21:06: Glucometer 187H 03/30/18 06:07: Glucometer 191H 03/30/18 11:00: Glucometer 218H 03/30/18 20:44: Glucometer 269H 03/31/18 06:18: Glucometer 166H 03/31/18 10:58: Glucometer 248H Current Funtional Status Appreciate cardiology for LifeVest evaluation Try to reassure the patient to continue intensive therapies but all pain medication and discharge orders were placed in case she proceeds on with discharge as she has requested Assessment/Plan Assessment and Plan Assessment: Debility following left hip fracture Renal cell carcinoma with metastases to the bone and lung Diabetes mellitus insulin-dependent CAD with recent stent placement on Brilinta managed by Dr. Keith at [place] Chronic pain on fentanyl patch Acute constipation needs another SSE and Dr. Clements consultations appreciated and noted x-ray showing left colon constipation now on Reglan and multiple meds and some results Chronic lower extremity edema Hyperlipidemia Stomach ulcers 2 weeks ago requiring surgical intervention Anemia Stage I pressure ulcer coccyx placed on air mattress and Calmoseptine Nausea placed on Reglan improved now Wheezing so started Nebs now clear Cardiomyopathy EF<30% Lifevest may be needed Left bursal sac Plan: Start aggressive therapy Pain control Home meds Cardiology consult Maintain Brilinta Lovenox for DVT prophylaxis Constipation resolved Air mattress Reglan for nausea Nebs Lifevest? (1) Closed left hip fracture Qualifiers: Qualified Codes: S72.002D - Fracture of unspecified part of neck of left femur, subsequent encounter for closed fracture with routine healing Status: Acute (2) Constipation Qualifiers: Qualified Codes: K59.01 - Slow transit constipation Status: Resolved (3) Metastatic renal cell carcinoma to bone Status: Chronic (4) Diabetes mellitus Qualifiers: Qualified Codes: E11.59 - Type 2 diabetes mellitus with other circulatory complications; Z79.4 - [facility]CF (current) use of insulin Status: Chronic (5) Edema Qualifiers: Qualified Codes: R60.0 - Localized edema Status: Chronic (6) GERD (gastroesophageal reflux disease) Qualifiers: Qualified Codes: K21.9 - Gastro-esophageal reflux disease without esophagitis Status: Chronic (7) Chronic pain Qualifiers: Qualified Codes: G89.3 - Neoplasm related pain (acute) (chronic) Status: Chronic (8) DVT prophylaxis Status: Acute (9) Myocardial infarct, old Status: Chronic (10) Stomach ulcer Qualifiers: Qualified Codes: K25.9 - Gastric ulcer, unspecified as acute or chronic, without hemorrhage or perforation Status: Chronic (11) CAD (coronary artery disease) Qualifiers: Qualified Codes: I25.10 - Atherosclerotic heart disease of [place] coronary artery without angina pectoris Status: Chronic (12) Hip fracture requiring operative repair Qualifiers: Qualified Codes: S72.002D - Fracture of unspecified part of neck of left femur, subsequent encounter for closed fracture with routine healing Status: Acute (13) Pressure injury of coccygeal region, stage 1 Status: Acute (14) Wheezing Status: Acute (15) COPD (chronic obstructive pulmonary disease) Qualifiers: Qualified Codes: J44.9 - Chronic obstructive pulmonary disease, unspecified Status: Chronic (16) Cardiomyopathy Qualifiers: Qualified Codes: I42.9 - Cardiomyopathy, unspecified Status: Acute (17) Olecranon bursitis Qualifiers: Qualified Codes: M70.22 - Olecranon bursitis, left elbow Status: Acute Co-Morbidities that are continuing to impact the rehab process: (include details ) MICHELLE BONILLA DO Mar 31, 2018 11:48
--- NOTE | 2018-03-31 12:11 | Physical Therapy Daily Note ---
PT Daily Note-Current Subjective Patient agrees to PT. She reports she is having a bad day. Pain Numeric Pain Scale: 3 Location: Left Location Body Site: Hip Pain Description: Acute Mental Status Patient Orientation: Normal For Age Transfers Therapy Code Descriptions/Definitions Functional [place] Measure: 0=Not Assessed/NA 4=Minimal Assistance 1=Total Assistance 5=Supervision or Setup 2=Maximal Assistance 6=Modified [place] 3=Moderate Assistance 7=Complete [place] Therapy Quality Codes: 6 Independent with activity with or without an assistive device 5 Patient requires set up or clean up by helper. Patient completes activity by themselves 4 Supervision or touching assist (CGA). [place] provide cues , steadying assist 3 The helper provides less than half the effort to complete the activity 2 The helper provides more than half the effort to complete the activity 1 Dependent. The helper does all the effort to complete an activity 7 Patient refused to complete or attempt activity 9 The patient did not perform the activity before the current illness or injury 88 Not attempted due to Medical conditions or safety concerns Transfers (B, C, W/C) (FIM): 6 Scootin Rollin Roll Left to Right (QC): 6 Supine to/from Sit: 6 Sit to/from Stand: 6 Sit to Lying (QC): 6 Sit to Stand (QC): 6 Chair/[id number] Xfer(QC): 6 Bed to/from Chair: 6 Car Transfer (QC): 6 Weight Bearing Right Lower Extremity: Right Full Weight Bearing Left Lower Extremity: Left Weight Bearing/Tolerated Gait Training Does the Patient Walk?: Yes Gait (FIM): 6 Distance (FIM): 3=150 ft Distance: 200' x 4 Walk 10 feet (QC): 6 Walk 50 ft with 2 Turns(QC): 6 Walk 150 ft (QC): 6 Walking 10ft/uneven surface-QC: 6 Gait Level of Assist: 6 Gait Assistive Device: FWW slow, steady, reciprocal pattern Stair Training Stair Training: Handrails/: 2 handrails Stairs (FIM): 5 #of Steps: 12 1 Step (curb) (QC): 5 4 Steps (QC): 5 12 Steps (QC): 5 Stairs: Pattern: Step to Level of Assist: 5 Balance Picking up an Object (QC): 5 Exercises Supine Ex: Ankle pumps, Heel Slides Supine Reps: 15 Seated Therapy Exercises: Ankle pumps, Long arc quads, Hip flexion Seated Reps: 15 (2 sets) Standing: Heel/toe raises, 3 way Ex=Flex, Abd, Ext, Marching, Mini squats Standing Reps: 15 Assessment Patient fatigues with activity on this date. Patient much improved with gross motor skills and desires to return to home with family. SW notified. PT Short Term Goals Short Term Goals Time Frame: Mar 29, 2018 Transfers (B,C,W/C) (FIM): 7 Gait (FIM): 5 Distance (FIM): 3=150 ft Gait Assistive Device: FWW Stairs (FIM): 2 # of Steps: 4 PT Nursing Home Goals Nursing Home Goals PT Nursing Home Goals Time Frame: Apr 06, 2018 Transfers (B,C,W/C) (FIM): 6 Sit to Lying (QC): 6 Lying-Sitting on Side/Bed(QC): 6 Sit to Stand (QC): 6 Rollin Roll Left to Right (QC): 6 Chair/Xkn-ur-Igaet Xfer(QC): 6 Car Transfer (QC): 6 Does the Patient Walk: Yes Gait (FIM): 6 Walk 10 feet (QC): 6 Walk 10ft-Uneven Surface(QC): 6 Walk 50ft with 2 Turns (QC): 6 Walk 150 ft (QC): 6 Gait Assistive Device: FWW Does the Pt use WC or Scooter?: No Stairs (FIM): 5 (household) # of Steps: 4 1 Step (curb) (QC): 6 4 Steps (QC): 6 12 Steps (QC): 88 Picking up an Object (QC): 88 PT Plan Treatment/Plan Treatment Plan: Continue Plan of Care Treatment Plan: Bed Mobility, Education, Functional Activity Gay, Functional Strength, Group Therapy, Gait, Safety, Therapeutic Exercise, Transfers Treatment Duration: Apr 06, 2018 Frequency: Modified Program (IRF) Estimated Hrs Per Day: 1.5 hours per day Patient and/or Family Agrees t: Yes Time/GCodes Time In: 1101 Time Out: 1201 Total Billed Treatment Time: 60 Total Billed Treatment 1 visit EX 20 min FA x 3 40 min BEAN ALLEN PT Mar 31, 2018 12:11
[2018-03-31] MEDS ORDERED: MENT71OI TOP (12:24)
[2018-03-31] MEDS ORDERED: CYCL10TA9 PO (12:24)
[2018-03-31] MEDS ORDERED: ENOX40DI8 SC (12:24)
[2018-03-31] MEDS ORDERED: HYDR-3820 PO (12:24)
[2018-03-31] MEDS ORDERED: FENT1PAT57 TD (12:24)
--- NOTE | 2018-03-31 12:28 | D/C HH Face to Face Order ---
D/C HH Face to Face Orders Instructions for Patient Patient choice of HH Patient Instructions/FollowUp: PCP Dr Fraser in [place], [place] in 1 week Physician to follow Patient: Dr Fraser in [facility] Discharge Diet for Home: ADA Diet Patient Data-Allergies,Ht & Wt Patient Allergies: Coded Allergies: Penicillins (Verified Allergy, Unknown, 03/22/18) codeine (Verified Allergy, Unknown, 03/22/18) morphine (Verified Allergy, Unknown, 03/22/18) oxycodone (Verified Allergy, Unknown, 03/22/18) Height (Feet): 5 Height (Inches): 10.00 Weight (Pounds): 176 Weight (Ounces): 1.6 Home Health Need/Face to Face Date of Face to Face: Mar 31, 2018 Clinical Findings: Generalized weakness and fatigue, Muscle weakness, Pain with ambulation, Unsteady gait I have seen Pt [id number]: Yes Discharged To: Home Diagnosis/Conditions: Left hip fracture s/p repair Renal cell with mets DM Ischemic Cardiomyopathy EF < 30% Patient is Homebound due to: Muscle weakness, Pain w/ambulation Homebound Status Due to the above stated illness, injury or surgical procedure (medical condition or diagnosis) and associated clinical findings, the patient is homebound because of his/her inability to leave home except with aid of a supportive device and/or person AND leaving the home requires a considerable and taxing effort or is medically contraindicated. Pt req the following assistanc: Walker Home Health Nursing Orders Home Health Services Order: Nursing Services, Chrome Plater Helper-Evaluate & Treat, Physical Therapy-Evaluate & Treat Certify Stmt I certify that this patient is under my care and that I, a nurse practitioner or a physician; a wardrobe assistant working with me, had a face to face encounter that - meets the physician face to face encounter requirements with this patient as dated. MICHELLE BONILLA DO Mar 31, 2018 12:28
--- NOTE | 2018-03-31 12:32 | Occupational Ther Daily Note ---
OT Current Status-Daily Note Subjective Pt alert, sitting in recliner. Pt agrees to therapy. No c/o pain at this time. Mental Status/Objective Patient Orientation: Person, Place, Time, Situation Therapy Code Descriptions/Definitions Functional [place] Measure: 0=Not Assessed/NA 4=Minimal Assistance 1=Total Assistance 5=Supervision or Setup 2=Maximal Assistance 6=Modified [place] 3=Moderate Assistance 7=Complete [place] ADL-Treatment Pt had toileted and completed sponge bath at sink prior to OT session. BARRIENTOS retrieved clothing and pt donned/doffed clothing by self. Therapy Code Descriptions/Definitions Functional [place] Measure: 0=Not Assessed/NA 4=Minimal Assistance 1=Total Assistance 5=Supervision or Setup 2=Maximal Assistance 6=Modified [place] 3=Moderate Assistance 7=Complete [place] Therapy Quality Codes: 6 Independent with activity with or without an assistive device 5 Patient requires set up or clean up by helper. Patient completes activity by themselves 4 Supervision or touching assist (CGA). [place] provide cues , steadying assist 3 The helper provides less than half the effort to complete the activity 2 The helper provides more than half the effort to complete the activity 1 Dependent. The helper does all the effort to complete an activity 7 Patient refused to complete or attempt activity 9 The patient did not perform the activity before the current illness or injury 88 Not attempted due to Medical conditions or safety concerns Upper Body (FIM): 5 Upper Body Dressing (QC): 5 Lower Body Dressing (FIM): 5 Lower Body Dressing (QC): 5 On/Off Footwear (QC): 6 Other Treatment Ambulated to therapy gym using FWW. Arm bike completed 15 min at 25 daigle resistance, with few breaks due to coughing, to increase strength and activity tolerance for daily functional tasks. Resistive clothespins completed to increase bdc manager/pinch strength for daily fine motor skills. Pt then ambulated back to room using FWW. Pt up ad stephen in room. Call light/phone in reach. All needs met in room. OT Short Term Goals Short Term Goals Time Frame: Apr 05, 2018 Eating(FIM): 6 Grooming(FIM): 6 Bathing(FIM): 5 Bathing Location: L Arm, R Arm, L Upper Leg, R Upper Leg, L Lower Leg ( including foot), R Lower Leg (including foot), Chest, Abdomen, Buttocks, Perineal Area Upper Body Dressing(FIM): 7 Lower Body Dressing(FIM): 6 Toileting(FIM): 6 Transfers (B,C,W/C) (FIM): 7 Toilet/Commode Transfer(FIM): 7 Tub Transfer(FIM): 2 Shower Transfer(FIM): 7 Additional Short Term Goals: 1-Demonstrate ADL Tasks, 2-Verbalize Understanding , 3-ImproveStrength/Gay 1=Demonstrate adherence to instructed precautions during ADL tasks. 2=Patient will verbalize/demonstrate understanding of assistive devices/ modifications for ADL. 3=Patient will improve strength/tolerance for activity to enable patient to perform ADL's. OT Care Home Goals Care Home Goals Time Frame: Apr 19, 2018 Eating (FIM): 7 Eating (QC): 6 Groomin Oral Hygiene (QC): 6 Bathing(FIM): 6 Bathing Location: L Arm, R Arm, L Upper Leg, R Upper Leg, L Lower Leg ( including foot), R Lower Leg (including foot), Chest, Abdomen, Buttocks, Perineal Area Shower/Bathe Self (QC): 6 Upper Body Dressing(FIM): 7 Upper Body Dressing (QC): 6 Lower Body Dressing(FIM): 6 Lower Body Dressing (QC): 6 On/Off Footwear (QC): 6 Toileting(FIM): 6 Toileting Hygiene (QC): 6 Transfers (B,C,W/C) (FIM): 6 Toilet/Commode Transfer(FIM): 6 Toilet/Commode Transfer (QC): 6 Tub Transfer(FIM): 6 Shower Transfer(FIM): 6 Additional Goals: 1-Demonstrate ADL Tasks, 2-Verbalize Understanding, 3- ImproveStrength/Gay 1=Demonstrate adherence to instructed precautions during ADL tasks. 2=Patient will verbalize/demonstrate understanding of assistive devices/ modifications for ADL. 3=Patient will improve strength/tolerance for activity to enable patient to perform ADL's. OT Education/Plan Discharge Recommendations Plan/Recommendations: Continue POC Treatment Plan/Plan of Care Patient would benefit from OT for education, treatment and training to promote independence in ADL's, mobility, safety and/or upper extremity function for ADL' s. Plan of Care: ADL Retraining, Caregiver Training, Functional Mobility, Group Exercise/Act as Ind, UE Funct Exercise/Act, UE Neuromus Re-Ed/Coord Treatment Duration: Apr 19, 2018 Frequency: At least 5 of 7 days/Wk (IRF) Estimated Hrs Per Day: 1.5 hours per day Agreement: Yes Rehab Potential: Good Time/GCodes Start Time: 08:00 Stop Time: 09:00 Total Time Billed (hr/min): 60 Billed Treatment Time 1 visit-ADL 2 (23 min) EX 2 (37 min) ERIN VELASCO Mar 31, 2018 12:32
--- NOTE | 2018-03-31 14:38 | Therapy Group Daily Note ---
Therapy Daily Group Note Patient Education Topic Other List Below (importance of memory and strategies for memory) Other/Notes Pt. participated in PT OT group session. Ratio was 3:1. Objective: Demonstrates knowledge of memory strategies to promote safety at home. (met) Understands purpose and objectives of ARU (met) Pt. benefitted from group this date expressing herself well socially and stating that she enjoyed this session very much. Pt. participated in sharing her own strategies for remembering things at home. Pt. participated in matching images game with others in group again laughing and sharing and having some success at remembering where images are . Pt. walked to from session with FWW CGA . Pt. in room after with ghotra at hand and needs met Start Time: 13:00 Stop Time: 14:15 Total Billed Treatment Time: 75 Total Billed Treatment 1,GRP ESTHELA MORAN POWER PRESS TENDER Mar 31, 2018 14:38
[2018-03-31 17:07] VITALS: BP 153/92
[2018-03-31] MEDS: ENOXAPARIN 40 MG/0.4 ML (LOVENOX) SYR SC SCH (17:16)
[2018-03-31 17:21] VITALS: BP 105/58
[2018-03-31] MEDS: MELATONIN 3 MG TABLET PO PRN (20:21)
[2018-03-31] MEDS: SIMvastatin 20 MG (ZOCOR) TAB PO SCH (20:21)
[2018-04-01] MEDS: LACTOBACILLUS ACIDOPHILUS (PROBIOTIC) CAPSULE PO SCH ×3 (06:06→16:19)
[2018-04-01 06:31] VITALS: BP 98/60
[2018-04-01] MEDS: RT-ALBUTEROL/IPRATROPIUM 3 ML (DUONEB) VIAL INH SCH (07:14)
[2018-04-01] MEDS: PANTOPRAZOLE 40 MG (PROTONIX) TAB PO SCH ×2 (08:53→16:19)
[2018-04-01] MEDS: TICAGRELOR 90 MG TABLET (BRILINTA) PO SCH ×2 (08:53→21:21)
[2018-04-01] MEDS: meTOprolol TARTRATE 25 MG (LOPRESSOR) TABLET PO SCH ×2 (08:53→21:00)
[2018-04-01] MEDS: POLYETHYLENE GLYCOL 17 GM (MIRALAX) PACK PO SCH ×2 (08:54→21:00)
[2018-04-01] MEDS: SENNA W/DOCUSATE (SENOKOT S) TABLET PO SCH ×2 (08:54→21:00)
[2018-04-01] MEDS: inSUlin DETERMIR 1 UNIT/0.01 ML (LEVEMIR) CHARGE PER UNIT SQ SCH ×2 (08:54→21:22)
[2018-04-01] MEDS: ASPIRIN E.C. 81 MG (ECOTRIN) TAB PO SCH (08:54)
[2018-04-01] MEDS: MENTHOL/ZINC OXIDE (CALMOSEPTINE) 113 GM TUBE TOP SCH ×3 (08:56→21:36)
[2018-04-01] MEDS: ONDANSETRON 4 MG (ZOFRAN) ORAL DISSOLVE TAB PO PRN (10:21)
[2018-04-01] MEDS: fentaNYL PATCH 25 MCG (DURAGESIC) TD SCH (10:22)
[2018-04-01] MEDS: FENTANYL PATCH REMOVAL TP SCH (10:22)
[2018-04-01] MEDS ORDERED: RT-ALBUTEROL/IPRATROPIUM 3 ML (DUONEB) VIAL INH PRN (11:00)
--- NOTE | 2018-04-01 11:15 | Physical Therapy Daily Note ---
PT Daily Note-Current Subjective Pt. declines therapy this date stating she is so nauseous and has had tremors , feels this may be from her resp. Rxs. Asks this MAC DEVELOPER to ask for something for nausea for her Transfers Therapy Code Descriptions/Definitions Functional [place] Measure: 0=Not Assessed/NA 4=Minimal Assistance 1=Total Assistance 5=Supervision or Setup 2=Maximal Assistance 6=Modified [place] 3=Moderate Assistance 7=Complete [place] Therapy Quality Codes: 6 Independent with activity with or without an assistive device 5 Patient requires set up or clean up by helper. Patient completes activity by themselves 4 Supervision or touching assist (CGA). [place] provide cues , steadying assist 3 The helper provides less than half the effort to complete the activity 2 The helper provides more than half the effort to complete the activity 1 Dependent. The helper does all the effort to complete an activity 7 Patient refused to complete or attempt activity 9 The patient did not perform the activity before the current illness or injury 88 Not attempted due to Medical conditions or safety concerns Weight Bearing Right Lower Extremity: Right Full Weight Bearing Left Lower Extremity: Left Weight Bearing/Tolerated Assessment Current Status: Refused Treatment nausea c/o, no Rx PT Short Term Goals Short Term Goals Time Frame: Mar 29, 2018 Transfers (B,C,W/C) (FIM): 7 Gait (FIM): 5 Distance (FIM): 3=150 ft Gait Assistive Device: FWW Stairs (FIM): 2 # of Steps: 4 PT Production Coordinator Goals Production Coordinator Goals PT Usp Goals Time Frame: Apr 06, 2018 Transfers (B,C,W/C) (FIM): 6 Sit to Lying (QC): 6 Lying-Sitting on Side/Bed(QC): 6 Sit to Stand (QC): 6 Rollin Roll Left to Right (QC): 6 Chair/[id number]-[id number] Xfer(QC): 6 Car Transfer (QC): 6 Does the Patient Walk: Yes Gait (FIM): 6 Walk 10 feet (QC): 6 Walk 10ft-Uneven Surface(QC): 6 Walk 50ft with 2 Turns (QC): 6 Walk 150 ft (QC): 6 Gait Assistive Device: FWW Does the Pt use WC or Scooter?: No Stairs (FIM): 5 (household) # of Steps: 4 1 Step (curb) (QC): 6 4 Steps (QC): 6 12 Steps (QC): 88 Picking up an Object (QC): 88 PT Plan Treatment/Plan Treatment Plan: Continue Plan of Care (as tolerated) Treatment Plan: Bed Mobility, Education, Functional Activity Gay, Functional Strength, Group Therapy, Gait, Safety, Therapeutic Exercise, Transfers Treatment Duration: Apr 06, 2018 Frequency: Modified Program (IRF) Estimated Hrs Per Day: 1.5 hours per day Patient and/or Family Agrees t: Yes Time/GCodes Time In: 1100 Time Out: 1105 Total Billed Treatment Time: 0 Total Billed Treatment 1,no RX, no CHG G Codes Necessary: No ESTHELA MORAN MAC DEVELOPER Apr 01, 2018 11:15
--- NOTE | 2018-04-01 12:35 | PM&R Progress Note ---
Subjective HPI/CC On Admission Date Seen by Provider: Apr 01, 2018 Time Seen by Provider: 10:30 CC: Left hip fracture recovery HPI: This is a 62-year-old white female with a known history of renal cell carcinoma managed by Dr. Herb Wilcox oncology at [facility] whose primary care provider is Dr. Evelio Beyer who presents to inpatient rehabilitation for aggressive therapy following a left hip fracture. Apparently she sustained a fall suffered a left hip fracture and had an uncomplicated repair at [facility]. She had recent coronary artery stent placement maintained on Brilinta and patient was monitored closely for any recurrence of acute coronary syndrome. I have reviewed and restarted all of her home medication including Lovenox for DVT prophylaxis of 40 mg subcutaneous daily. Patient reports pain is controlled currently and is ready to start her therapies. Subjective/Events-last exam Patient still asking a lot of questions about the LifeVest but I told her that we would work that out later Feels pretty good Overall feels like she is progressing well Bowels are moving Eating and drinking Blood sugars are reviewed Has no major concerns Nebulizer treatments may be causing a little bit of nausea so we will change those to 3 times daily as needed and maintain incentive spirometer Review of Systems General: Fatigue Gastrointestinal: Nausea Musculoskeletal: leg pain Objective Exam Vital Signs Vital Signs Date Time Temp Pulse Resp B/P (MAP) Pulse Ox O2 Delivery O2 Flow Rate FiO2 04/01/18 09:00 Room Air 04/01/18 07:16 94 04/01/18 06:31 98.2 78 18 98/60 (73) Capillary Refill : General Appearance: No Apparent Distress, WD/WN, Chronically ill Respiratory: Chest Non Tender, Lungs Clear, Normal Breath Sounds, No Accessory Muscle Use, No Respiratory Distress Cardiovascular: Regular Rate, Rhythm, No Edema, No Gallop, No JVD, No Murmur, Normal Peripheral Pulses Neurologic/Psychiatric: Alert, Oriented x3, No Motor/Sensory Deficits, Normal Mood/Affect, Other (left pain when moved due to hip) Skin: Normal Color, Warm/Dry Results/Procedures Lab Patient resulted labs reviewed. Assessment/Plan Assessment and Plan Assess & Plan/Chief Complaint Assessment: Debility following left hip fracture Renal cell carcinoma with metastases to the bone and lung Diabetes mellitus insulin-dependent CAD with recent stent placement on Brilinta managed by Dr. Keith at [facility] Chronic pain on fentanyl patch Acute constipation needs another SSE and Dr. Clements consultations appreciated and noted x-ray showing left colon constipation now on Reglan and multiple meds and some results Chronic lower extremity edema Hyperlipidemia Stomach ulcers 2 weeks ago requiring surgical intervention Anemia Stage I pressure ulcer coccyx placed on air mattress and Calmoseptine Nausea placed on Reglan improved now Wheezing so started Nebs and will change to TID prn today Cardiomyopathy EF < 30% likely will need Lifevest Plan: Maintain aggressive therapy Pain control Home meds Cardiology consult is appreciated Maintain Brilinta Lovenox for DVT prophylaxis Constipation monitoring Air mattress Reglan for nausea Nebs to TID prn Diagnosis/Problems Diagnosis/Problems (1) Closed left hip fracture Status: Acute Qualifiers: Encounter type: subsequent encounter Fracture healing: with routine healing Qualified Codes: S72.002D - Fracture of unspecified part of neck of left femur, subsequent encounter for closed fracture with routine healing (2) Constipation Status: Resolved Qualifiers: Constipation type: slow transit constipation Qualified Codes: K59.01 - Slow transit constipation Resolution Date/Time: 03/27/18 @ 12:59 (3) Metastatic renal cell carcinoma to bone Status: Chronic (4) Diabetes mellitus Status: Chronic Qualifiers: Diabetes mellitus type: type 2 Diabetes mellitus director long term care insulin use: with shelter use Diabetes mellitus complication status: with circulatory complication Diabetes mellitus complication detail: with other circulatory complications Qualified Codes: E11.59 - Type 2 diabetes mellitus with other circulatory complications; Z79.4 - terminologist (current) use of insulin (5) Edema Status: Chronic Qualifiers: Edema type: localized Qualified Codes: R60.0 - Localized edema (6) GERD (gastroesophageal reflux disease) Status: Chronic Qualifiers: Esophagitis presence: without esophagitis Qualified Codes: K21.9 - Gastro- esophageal reflux disease without esophagitis (7) Chronic pain Status: Chronic Qualifiers: Chronic pain type: due to neoplasm Qualified Codes: G89.3 - Neoplasm related pain (acute) (chronic) (8) DVT prophylaxis Status: Acute (9) Myocardial infarct, old Status: Chronic (10) Stomach ulcer Status: Chronic Qualifiers: Gastric ulcer chronicity: unspecified ulcer chronicity Gastric ulcer complication status: unspecified whether hemorrhage or perforation present Qualified Codes: K25.9 - Gastric ulcer, unspecified as acute or chronic, without hemorrhage or perforation (11) CAD (coronary artery disease) Status: Chronic Qualifiers: Coronary Disease-Associated Artery/Lesion type: [place] artery [place] vs. transplanted heart: [place] heart Associated angina: without angina Qualified Codes: I25.10 - Atherosclerotic heart disease of [place] coronary artery without angina pectoris (12) Hip fracture requiring operative repair Status: Acute Qualifiers: Encounter type: subsequent encounter Fracture type: closed Laterality: left Fracture healing: with routine healing Qualified Codes: S72.002D - Fracture of unspecified part of neck of left femur, subsequent encounter for closed fracture with routine healing (13) Pressure injury of coccygeal region, stage 1 Status: Acute (14) Wheezing Status: Acute (15) COPD (chronic obstructive pulmonary disease) Status: Chronic Qualifiers: COPD type: unspecified COPD Qualified Codes: J44.9 - Chronic obstructive pulmonary disease, unspecified (16) Cardiomyopathy Status: Acute Qualifiers: Cardiomyopathy type: unspecified Qualified Codes: I42.9 - Cardiomyopathy, unspecified (17) Olecranon bursitis Status: Acute Qualifiers: Laterality: left Qualified Codes: M70.22 - Olecranon bursitis, left elbow Clinical Quality Measures DVT/VTE Risk/Contraindication: Risk Factor Score Per Nursin RFS Level Per Nursing on Admit: 2=Moderate MICHELLE BONILLA DO Apr 01, 2018 12:35
--- NOTE | 2018-04-01 13:38 | Cardiology Progress Note ---
Cardiology SOAP Progress Note Subjective: No cardiac complaints. Objective: I&O/Vital Signs 04/01/18 04/01/18 04/01/18 06:31 07:16 09:00 Temp 98.2 Pulse 78 Resp 18 B/P (MAP) 98/60 (73) Pulse Ox 93 94 O2 Delivery Room Air Room Air Room Air 04/01/18 00:00 Intake Total 1400 ml Balance 1400 ml Weight (Pounds): 176 Weight (Ounces): 1.6 Weight (Calculated Kilograms): 79.233793 Constitutional: appears stated age, AAO x 3; No apparent distress; well- developed, well-nourished Respiratory: No accessory muscle use, No respiratory distress, No chest tender , No chest expansion is symmetric; chest is bilaterally symmetric; No lungs clear to percussion; lungs clear to auscultation; No crackles, No rhonchi, No rales, No stridor, No wheezing, No pleural rub, No other Cardiovascular: regular rate-rhythm; No irregularly irregular, No extra beats, No parasternal heave is noted, No JVD, No edema, No bradycardia, No tachycardia , No point of maximal impulse, No cardiac thrills are palpable; S1 and S2; No gallop/S3, No gallop/S4, No diastolic murmur, No systolic murmur, No friction rub, No click, No other Gastrointestional: No tender, No soft, No round, No distended, No pulsatile mass, No organomegaly, No guarding, No rebound, No tenderness, No hernia, No mass, No audible bowel sounds, No abnormal bowel sounds, No abdominal bruits, No spleenomegaly, No other Extremities: No normal range of motion, No non-tender, No normal inspection, No pedal edema, No calf tenderness, No normal capillary refill, No pelvis stable , No calf tenderness, No inflammation, No pedal edema, No slow capillary refill , No swelling, No other, No abrasion, No clubbing, No cyanosis, No ecchymosis, No laceration, No no lower extremity edema bilateral, No significant edema, No tenderness, No wound Neurologic/Psychiatric: no motor/sensory deficits, alert, normal mood/affect, oriented x 3, power is 5/5 both on sides Skin: No normal color, No warm/dry, No cyanosis, No cool, No diaphoresis, No damp, No ecchymosis, No jaundice, No mottled, No pallor, No rash, No tattoos/ piercings, No ulcerations, No rash on exposed areas, No ulcerations on exposed areas, No other Results/Procedures: Labs Laboratory Tests 03/31/18 16:22: Glucometer 148H 03/31/18 20:20: Glucometer 170H 04/01/18 06:00: Glucometer 125H 04/01/18 10:50: Glucometer 171H A/P: Assessment/Dx: Hip fracture, inpatient rehabilitation, History of MN/CAD/PCI, 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 improved after switching carvedilol, Hyperlipidemia, Hypertension, History of renal cell carcinoma with metastases to the lungs. Plan: Hip fracture, inpatient rehabilitation, History of MN/CAD/PCI, continue dual antiplatelet therapy with aspirin and Brilinta. Continue statin and beta lindsay. Echocardiogram showed EF of 30-35 percent. Dilated LV suggesting dilated ischemic cardiomyopathy. I discussed at length with the patient and had a long conversation about her wishes and how aggressive showed her cardiac care be. Due to the fact that she has stage IV cancer. A lifevest will be for 3 months and is used as a bridge to either an ICD or if the EF improves to continue his medical therapy. I also did tell her that in all ICD trials benefit is seen in those patients that have a survival of at least 18 months to 2 years. She tells me that her cancer is in remission and her oncologist is in [place]. It is not possible to get hold of the oncologist over the weekend. I also discussed at length with the patient's daughter. What we have mutually decided is to go ahead with a lifevest and then as an outpatient she can have a discussion with her rail project engineer Dr. Encarnacion and her oncologist about prognosis of her stage IV cancer and whether or not she'll be a candidate for further primary prevention of sudden cardiac . Ischemic cardiomyopathy, however the patient is euvolemic therefore will avoid Lasix. Borderline hypotension with dizziness, put parameters for BB dosing. Do not give if SBP < 110 mmhg. Hyperlipidemia, pravastatin. Hypertension, carvedilol dced and started on low dose metoprolol. History of renal cell carcinoma. Thank you for your consultation. Please call me if you have any questions. Anton Potts MD, FACP, FACC, FSCAI, FHRS, CCDS Interventional Cardiology Cardiac Electrophysiology Vascular Medicine and Endovascular Interventions Velma POTTS MD Apr 01, 2018 1:38 pm
[2018-04-01] MEDS: ENOXAPARIN 40 MG/0.4 ML (LOVENOX) SYR SC SCH (16:19)
[2018-04-01 18:00] VITALS: BP 93/57
--- NOTE | 2018-04-01 19:23 | NUR ---
bedside report received from ANUM BRANTLEY, assume care of pt
--- NOTE | 2018-04-01 21:00 | NUR ---
assessments & interventions completed, see assessments & interventions, fsbs 162, patient refused Senmadisonot s & eliux
--- NOTE | 2018-04-01 21:05 | NUR ---
Lopressor 12.5mg held due to b/p /
[2018-04-01 21:15] VITALS: BP 90/59
[2018-04-01] MEDS: SIMvastatin 20 MG (ZOCOR) TAB PO SCH (21:22)
[2018-04-01] MEDS: CYCLOBENZAPRINE 10 MG (FLEXERIL) TAB PO PRN (21:31)
--- NOTE | 2018-04-01 21:31 | NUR ---
melatonin 3mg & Flexeril 5mg po given sleep & muscle spasms
[2018-04-01] MEDS: MELATONIN 3 MG TABLET PO PRN (21:32)
[2018-04-02 05:29] VITALS: BP 100/63
[2018-04-02] MEDS: LACTOBACILLUS ACIDOPHILUS (PROBIOTIC) CAPSULE PO SCH ×3 (07:08→16:57)
--- NOTE | 2018-04-02 07:11 | NUR ---
bedside report given to BORIS BRANTLEY
[2018-04-02 08:30] VITALS: BP 101/58
[2018-04-02] MEDS: TICAGRELOR 90 MG TABLET (BRILINTA) PO SCH ×2 (08:32→21:04)
[2018-04-02] MEDS: ASPIRIN E.C. 81 MG (ECOTRIN) TAB PO SCH (08:32)
[2018-04-02] MEDS: PANTOPRAZOLE 40 MG (PROTONIX) TAB PO SCH ×2 (08:32→16:57)
[2018-04-02] MEDS: SENNA W/DOCUSATE (SENOKOT S) TABLET PO SCH ×2 (08:32→20:55)
[2018-04-02] MEDS: POLYETHYLENE GLYCOL 17 GM (MIRALAX) PACK PO SCH ×2 (08:33→20:55)
[2018-04-02] MEDS: meTOprolol TARTRATE 25 MG (LOPRESSOR) TABLET PO SCH ×2 (08:33→20:50)
[2018-04-02] MEDS: inSUlin DETERMIR 1 UNIT/0.01 ML (LEVEMIR) CHARGE PER UNIT SQ SCH ×2 (08:33→21:05)
[2018-04-02] MEDS: MENTHOL/ZINC OXIDE (CALMOSEPTINE) 113 GM TUBE TOP SCH ×3 (08:36→21:06)
[2018-04-02] MEDS: ONDANSETRON 4 MG (ZOFRAN) ORAL DISSOLVE TAB PO PRN (10:41)
--- NOTE | 2018-04-02 12:00 | NUR ---
MARIAELENA wrap to left elbow. Patient states that swelling has gone down.
--- NOTE | 2018-04-02 12:45 | NUR ---
Dr. Granados to floor. Informed of persistent cough with awad, thick sputum. Orders to DC scheduled Albuterol. Start Xopenex BID, Advair- 2 puffs IH BID, and incentive spirometer to bedside.
--- NOTE | 2018-04-02 13:21 | PM&R Progress Note ---
Subjective HPI/CC On Admission Date Seen by Provider: Apr 02, 2018 Time Seen by Provider: 12:15 CC: Left hip fracture recovery HPI: This is a 62-year-old white female with a known history of renal cell carcinoma managed by Dr. Herb Wilcox oncology at [facility] whose primary care provider is Dr. Evelio barrow [place] who presents to inpatient rehabilitation for aggressive therapy following a left hip fracture. Apparently she sustained a fall suffered a left hip fracture and had an uncomplicated repair at [facility]. She had recent coronary artery stent placement maintained on Brilinta and patient was monitored closely for any recurrence of acute coronary syndrome. I have reviewed and restarted all of her home medication including Lovenox for DVT prophylaxis of 40 mg subcutaneous daily. Patient reports pain is controlled currently and is ready to start her therapies. Subjective/Events-last exam Cough persists so will initiate Xopenex twice daily since DuoNeb seems to make her nauseated Cough is slightly productive that noncolored sputum Quit smoking one year ago COPD exacerbation noted Used to have an incentive spirometer so we'll replace that and start using that regularly Overall feels pretty good otherwise Always inquiring about the LifeVest Review of Systems Pulmonary: Cough Musculoskeletal: leg pain Objective Exam Vital Signs Vital Signs Date Time Temp Pulse Resp B/P (MAP) Pulse Ox O2 Delivery O2 Flow Rate FiO2 04/02/18 09:42 Room Air 04/02/18 08:30 78 101/58 (72) 04/02/18 08:02 93 04/02/18 05:29 97.4 18 Capillary Refill : General Appearance: No Apparent Distress, WD/WN Respiratory: Chest Non Tender, Lungs Clear, Normal Breath Sounds, No Accessory Muscle Use, No Respiratory Distress, Decreased Breath Sounds Cardiovascular: Regular Rate, Rhythm, No Edema, No Gallop, No JVD, No Murmur, Normal Peripheral Pulses Neurologic/Psychiatric: Alert, Oriented x3, No Motor/Sensory Deficits, Normal Mood/Affect Results/Procedures Lab Patient resulted labs reviewed. Assessment/Plan Assessment and Plan Assess & Plan/Chief Complaint Assessment: Debility following left hip fracture Renal cell carcinoma with metastases to the bone and lung Diabetes mellitus insulin-dependent CAD with recent stent placement on Brilinta managed by Dr. Keith at [place] Chronic pain on fentanyl patch Acute constipation needs another SSE and Dr. Clements consultations appreciated and noted x-ray showing left colon constipation now on Reglan and multiple meds and some results Chronic lower extremity edema Hyperlipidemia Stomach ulcers 2 weeks ago requiring surgical intervention Anemia Stage I pressure ulcer coccyx placed on air mattress and Calmoseptine Nausea placed on Reglan improved now COPD s/p wheezing so started Nebs and will change to Xopenex BID since Duoneb made her nauseated Cardiomyopathy EF < 30% likely will need Lifevest Plan: Maintain aggressive therapy Pain control Home meds Cardiology consult is appreciated Maintain Brilinta Lovenox for DVT prophylaxis Constipation monitoring Air mattress Reglan for nausea Nebs to TID prn ICS Xopenenx IS Diagnosis/Problems Diagnosis/Problems (1) Closed left hip fracture Status: Acute Qualifiers: Encounter type: subsequent encounter Fracture healing: with routine healing Qualified Codes: S72.002D - Fracture of unspecified part of neck of left femur, subsequent encounter for closed fracture with routine healing (2) Constipation Status: Resolved Qualifiers: Constipation type: slow transit constipation Qualified Codes: K59.01 - Slow transit constipation Resolution Date/Time: 03/27/18 @ 12:59 (3) Metastatic renal cell carcinoma to bone Status: Chronic (4) Diabetes mellitus Status: Chronic Qualifiers: Diabetes mellitus type: type 2 Diabetes mellitus detention insulin use: with detention use Diabetes mellitus complication status: with circulatory complication Diabetes mellitus complication detail: with other circulatory complications Qualified Codes: E11.59 - Type 2 diabetes mellitus with other circulatory complications; Z79.4 - senior care (current) use of insulin (5) Edema Status: Chronic Qualifiers: Edema type: localized Qualified Codes: R60.0 - Localized edema (6) GERD (gastroesophageal reflux disease) Status: Chronic Qualifiers: Esophagitis presence: without esophagitis Qualified Codes: K21.9 - Gastro- esophageal reflux disease without esophagitis (7) Chronic pain Status: Chronic Qualifiers: Chronic pain type: due to neoplasm Qualified Codes: G89.3 - Neoplasm related pain (acute) (chronic) (8) DVT prophylaxis Status: Acute (9) Myocardial infarct, old Status: Chronic (10) Stomach ulcer Status: Chronic Qualifiers: Gastric ulcer chronicity: unspecified ulcer chronicity Gastric ulcer complication status: unspecified whether hemorrhage or perforation present Qualified Codes: K25.9 - Gastric ulcer, unspecified as acute or chronic, without hemorrhage or perforation (11) CAD (coronary artery disease) Status: Chronic Qualifiers: Coronary Disease-Associated Artery/Lesion type: [place] artery [place] vs. transplanted heart: [place] heart Associated angina: without angina Qualified Codes: I25.10 - Atherosclerotic heart disease of [place] coronary artery without angina pectoris (12) Hip fracture requiring operative repair Status: Acute Qualifiers: Encounter type: subsequent encounter Fracture type: closed Laterality: left Fracture healing: with routine healing Qualified Codes: S72.002D - Fracture of unspecified part of neck of left femur, subsequent encounter for closed fracture with routine healing (13) Pressure injury of coccygeal region, stage 1 Status: Acute (14) Wheezing Status: Resolved Resolution Date/Time: 04/02/18 @ 14:15 (15) COPD (chronic obstructive pulmonary disease) Status: Chronic Qualifiers: COPD type: unspecified COPD Qualified Codes: J44.9 - Chronic obstructive pulmonary disease, unspecified (16) Cardiomyopathy Status: Acute Qualifiers: Cardiomyopathy type: unspecified Qualified Codes: I42.9 - Cardiomyopathy, unspecified (17) Olecranon bursitis Status: Acute Qualifiers: Laterality: left Qualified Codes: M70.22 - Olecranon bursitis, left elbow Clinical Quality Measures DVT/VTE Risk/Contraindication: Risk Factor Score Per Nursin RFS Level Per Nursing on Admit: 2=Moderate MICHELLE BONILLA DO Apr 02, 2018 13:21
--- NOTE | 2018-04-02 15:46 | Cardiology Progress Note ---
Cardiology SOAP Progress Note Subjective: No cardiac complaints. Objective: I&O/Vital Signs 04/02/18 04/02/18 04/02/18 04/02/18 05:29 08:02 08:30 09:42 Temp 97.4 Pulse 77 78 Resp 18 B/P (MAP) 100/63 (75) 101/58 (72) Pulse Ox 93 93 O2 Delivery Room Air Room Air Room Air 04/02/18 00:00 Intake Total 1100 ml Balance 1100 ml Weight (Pounds): 176 Weight (Ounces): 1.6 Weight (Calculated Kilograms): 79.288364 Constitutional: appears stated age, AAO x 3; No apparent distress; well- developed, well-nourished Respiratory: No accessory muscle use, No respiratory distress, No chest tender , No chest expansion is symmetric; chest is bilaterally symmetric; No lungs clear to percussion; lungs clear to auscultation; No crackles, No rhonchi, No rales, No stridor, No wheezing, No pleural rub, No other Cardiovascular: regular rate-rhythm; No irregularly irregular, No extra beats, No parasternal heave is noted, No JVD, No edema, No bradycardia, No tachycardia , No point of maximal impulse, No cardiac thrills are palpable; S1 and S2; No gallop/S3, No gallop/S4, No diastolic murmur, No systolic murmur, No friction rub, No click, No other Gastrointestional: No tender, No soft, No round, No distended, No pulsatile mass, No organomegaly, No guarding, No rebound, No tenderness, No hernia, No mass, No audible bowel sounds, No abnormal bowel sounds, No abdominal bruits, No spleenomegaly, No other Extremities: No normal range of motion, No non-tender, No normal inspection, No pedal edema, No calf tenderness, No normal capillary refill, No pelvis stable , No calf tenderness, No inflammation, No pedal edema, No slow capillary refill , No swelling, No other, No abrasion, No clubbing, No cyanosis, No ecchymosis, No laceration, No no lower extremity edema bilateral, No significant edema, No tenderness, No wound Neurologic/Psychiatric: no motor/sensory deficits, alert, normal mood/affect, oriented x 3, power is 5/5 both on sides Skin: No normal color, No warm/dry, No cyanosis, No cool, No diaphoresis, No damp, No ecchymosis, No jaundice, No mottled, No pallor, No rash, No tattoos/ piercings, No ulcerations, No rash on exposed areas, No ulcerations on exposed areas, No other Results/Procedures: Labs Laboratory Tests 04/01/18 15:56: Glucometer 172H 04/01/18 20:26: Glucometer 162H 04/02/18 05:40: Glucometer 153H 04/02/18 10:58: Glucometer 204H A/P: Assessment/Dx: Hip fracture, inpatient rehabilitation, History of MA/CAD/PCI, 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 improved after switching carvedilol, Hyperlipidemia, Hypertension, History of renal cell carcinoma with metastases to the lungs. Plan: Hip fracture, inpatient rehabilitation, History of MA/CAD/PCI, continue dual antiplatelet therapy with aspirin and Brilinta. Continue statin and beta lindsay. Echocardiogram showed EF of 30-35 percent. Dilated LV suggesting dilated ischemic cardiomyopathy. I discussed at length with the patient and had a long conversation about her wishes and how aggressive showed her cardiac care be. Due to the fact that she has stage IV cancer. A lifevest will be for 3 months and is used as a bridge to either an ICD or if the EF improves to continue his medical therapy. I also did tell her that in all ICD trials benefit is seen in those patients that have a survival of at least 18 months to 2 years. She tells me that her cancer is in remission and her oncologist is in [place]. It is not possible to get hold of the oncologist over the weekend. I also discussed at length with the patient's daughter. What we have mutually decided is to go ahead with a lifevest and then as an outpatient she can have a discussion with her unix administrator Dr. Encarnacion and her oncologist about prognosis of her stage IV cancer and whether or not she'll be a candidate for further primary prevention of sudden cardiac . Ischemic cardiomyopathy, however the patient is euvolemic therefore will avoid Lasix. Borderline hypotension with dizziness, put parameters for BB dosing. Do not give if SBP < 110 mmhg. Hyperlipidemia, pravastatin. Hypertension, carvedilol dced and started on low dose metoprolol. History of renal cell carcinoma. Thank you for your consultation. Please call me if you have any questions. Anton Potts MD, FACP, FACC, FSCAI, FHRS, CCDS Interventional Cardiology Cardiac Electrophysiology Vascular Medicine and Endovascular Interventions Velma POTTS MD Apr 02, 2018 3:46 pm
[2018-04-02] MEDS: ENOXAPARIN 40 MG/0.4 ML (LOVENOX) SYR SC SCH (16:57)
[2018-04-02] MEDS: HYDROcodone/APAP 10 MG/325 MG (LORTAB) TAB PO PRN (17:00)
[2018-04-02 17:52] VITALS: BP 101/64
[2018-04-02] MEDS: RT-ADVAIR HFA 115/21 MCG PER PUFF IH SCH (19:41)
[2018-04-02] MEDS: RT-LEVALBUTEROL (XOPENEX) 1.25 MG/3 ML NEB NON-FORMULARY INH SCH (19:41)
[2018-04-02] MEDS: SIMvastatin 20 MG (ZOCOR) TAB PO SCH (21:03)
[2018-04-02] MEDS: CYCLOBENZAPRINE 10 MG (FLEXERIL) TAB PO PRN (21:03)
[2018-04-02] MEDS: MELATONIN 3 MG TABLET PO PRN (21:04)
[2018-04-03 06:04] VITALS: BP 93/44
[2018-04-03] MEDS: RT-LEVALBUTEROL (XOPENEX) 1.25 MG/3 ML NEB NON-FORMULARY INH SCH ×2 (07:30→19:54)
[2018-04-03] MEDS: RT-ADVAIR HFA 115/21 MCG PER PUFF IH SCH ×2 (07:32→19:54)
--- NOTE | 2018-04-03 07:56 | Occupational Ther Daily Note ---
OT Current Status-Daily Note Subjective Pt alert, sitting in recliner. Pt agrees to therapy. No c/o pain at this time. Pt continues to have fluid on elbow. Viral wraps have been used though just dispersed fluid throughout UE, pt does not have wrap on at this time. Mental Status/Objective Patient Orientation: Person, Place, Time, Situation Therapy Code Descriptions/Definitions Functional Vivian Measure: 0=Not Assessed/NA 4=Minimal Assistance 1=Total Assistance 5=Supervision or Setup 2=Maximal Assistance 6=Modified Vivian 3=Moderate Assistance 7=Complete Vivian Attachments: Central Line ADL-Treatment Therapy Code Descriptions/Definitions Functional Vivian Measure: 0=Not Assessed/NA 4=Minimal Assistance 1=Total Assistance 5=Supervision or Setup 2=Maximal Assistance 6=Modified Vivian 3=Moderate Assistance 7=Complete Vivian Therapy Quality Codes: 6 Independent with activity with or without an assistive device 5 Patient requires set up or clean up by helper. Patient completes activity by themselves 4 Supervision or touching assist (CGA). [place] provide cues , steadying assist 3 The helper provides less than half the effort to complete the activity 2 The helper provides more than half the effort to complete the activity 1 Dependent. The helper does all the effort to complete an activity 7 Patient refused to complete or attempt activity 9 The patient did not perform the activity before the current illness or injury 88 Not attempted due to Medical conditions or safety concerns Eating (FIM): 7 (Previous reports. Pt is independent with eating.) Eating (QC): 6 Grooming (FIM): 7 (Using counter to stabilize pt able to complete by self.) Oral Hygiene (QC): 6 Bathing (FIM): 6 (Using grabbar, long hand sponge, hand held shower and shower bench pt able to complete by self.) Bathing Location: L Arm, R Arm, L Upper Leg, R Upper Leg, L Lower Leg ( including foot), R Lower Leg (including foot), Chest, Abdomen Shower/Bathe Self (QC): 6 Upper Body (FIM): 6 (Using FWW to retrieve clothing pt able to complete by self.) Upper Body Dressing (QC): 6 Lower Body Dressing (FIM): 6 (Using FWW to retrieve clothing pt able to complete by self, AE used when needed.) Lower Body Dressing (QC): 6 On/Off Footwear (QC): 6 Toileting (FIM): 6 (Using elevated seat with arms, grabbars and FWW pt able to complete.) Toileting Hygiene (QC): 6 Transfers (B, C, W/C) (FIM): 6 Toilet/Commode Transfer (FIM): 6 (Using elevated seat with arms, grabbars and FWW pt able to complete.) Toilet Transfer (QC): 6 Shower Transfer(FIM): 6 (Using shower bench, grabbar and FWW pt able to complete.) Pt has AE at home for lower body dressing. is putting in a walk-in shower, pt will take sponge bath until this is complete. Other Treatment Pt complete UE dowel [place] exercises with 1# wt attached, 30 reps each. After therapy, pt sitting in recliner with call light/phone in reach. All needs met in room. OT Short Term Goals Short Term Goals Time Frame: Apr 05, 2018 Eating(FIM): 6 Grooming(FIM): 6 Bathing(FIM): 5 Bathing Location: L Arm, R Arm, L Upper Leg, R Upper Leg, L Lower Leg ( including foot), R Lower Leg (including foot), Chest, Abdomen, Buttocks, Perineal Area Upper Body Dressing(FIM): 7 Lower Body Dressing(FIM): 6 Toileting(FIM): 6 Transfers (B,C,W/C) (FIM): 7 Toilet/Commode Transfer(FIM): 7 Tub Transfer(FIM): 2 Shower Transfer(FIM): 7 Additional Short Term Goals: 1-Demonstrate ADL Tasks, 2-Verbalize Understanding , 3-ImproveStrength/Gay 1=Demonstrate adherence to instructed precautions during ADL tasks. 2=Patient will verbalize/demonstrate understanding of assistive devices/ modifications for ADL. 3=Patient will improve strength/tolerance for activity to enable patient to perform ADL's. OT Train Controller Goals Train Controller Goals Time Frame: Apr 19, 2018 Eating (FIM): 7 Eating (QC): 6 Groomin Oral Hygiene (QC): 6 Bathing(FIM): 6 Bathing Location: L Arm, R Arm, L Upper Leg, R Upper Leg, L Lower Leg ( including foot), R Lower Leg (including foot), Chest, Abdomen, Buttocks, Perineal Area Shower/Bathe Self (QC): 6 Upper Body Dressing(FIM): 7 Upper Body Dressing (QC): 6 Lower Body Dressing(FIM): 6 Lower Body Dressing (QC): 6 On/Off Footwear (QC): 6 Toileting(FIM): 6 Toileting Hygiene (QC): 6 Transfers (B,C,W/C) (FIM): 6 Toilet/Commode Transfer(FIM): 6 Toilet/Commode Transfer (QC): 6 Tub Transfer(FIM): 6 Shower Transfer(FIM): 6 Additional Goals: 1-Demonstrate ADL Tasks, 2-Verbalize Understanding, 3- ImproveStrength/Gay 1=Demonstrate adherence to instructed precautions during ADL tasks. 2=Patient will verbalize/demonstrate understanding of assistive devices/ modifications for ADL. 3=Patient will improve strength/tolerance for activity to enable patient to perform ADL's. OT Education/Plan Discharge Recommendations Plan/Recommendations: Continue POC Treatment Plan/Plan of Care Patient would benefit from OT for education, treatment and training to promote independence in ADL's, mobility, safety and/or upper extremity function for ADL' s. Plan of Care: ADL Retraining, Caregiver Training, Functional Mobility, Group Exercise/Act as Ind, UE Funct Exercise/Act, UE Neuromus Re-Ed/Coord Treatment Duration: Apr 19, 2018 Frequency: At least 5 of 7 days/Wk (IRF) Estimated Hrs Per Day: 1.5 hours per day Agreement: Yes Rehab Potential: Good Time/GCodes Start Time: 07:00 Stop Time: 08:00 Total Time Billed (hr/min): 60 Billed Treatment Time 1 visit-ADL 3 (50 min) EX 1 (10 min) ERIN VELASCO Apr 03, 2018 07:56
[2018-04-03 08:27] VITALS: BP 94/49
[2018-04-03] MEDS: PANTOPRAZOLE 40 MG (PROTONIX) TAB PO SCH ×2 (08:32→17:55)
[2018-04-03] MEDS: inSUlin DETERMIR 1 UNIT/0.01 ML (LEVEMIR) CHARGE PER UNIT SQ SCH ×2 (08:32→21:33)
[2018-04-03] MEDS: ASPIRIN E.C. 81 MG (ECOTRIN) TAB PO SCH (08:32)
[2018-04-03] MEDS: POLYETHYLENE GLYCOL 17 GM (MIRALAX) PACK PO SCH ×2 (08:32→21:33)
[2018-04-03] MEDS: meTOprolol TARTRATE 25 MG (LOPRESSOR) TABLET PO SCH ×2 (08:32→21:33)
[2018-04-03] MEDS: LACTOBACILLUS ACIDOPHILUS (PROBIOTIC) CAPSULE PO SCH ×3 (08:32→17:55)
[2018-04-03] MEDS: TICAGRELOR 90 MG TABLET (BRILINTA) PO SCH ×2 (08:32→21:32)
[2018-04-03] MEDS: SENNA W/DOCUSATE (SENOKOT S) TABLET PO SCH ×2 (08:33→21:32)
[2018-04-03] MEDS: MENTHOL/ZINC OXIDE (CALMOSEPTINE) 113 GM TUBE TOP SCH ×3 (08:33→21:33)
--- NOTE | 2018-04-03 08:37 | PM&R Progress Note ---
Subjective HPI/CC On Admission Date Seen by Provider: Apr 03, 2018 Time Seen by Provider: 08:10 CC: Left hip fracture recovery HPI: This is a 62-year-old white female with a known history of renal cell carcinoma managed by Dr. Herb Wilcox oncology at [facility] whose primary care provider is Dr. Evelio barrow [place] who presents to inpatient rehabilitation for aggressive therapy following a left hip fracture. Apparently she sustained a fall suffered a left hip fracture and had an uncomplicated repair at [facility]. She had recent coronary artery stent placement maintained on Brilinta and patient was monitored closely for any recurrence of acute coronary syndrome. I have reviewed and restarted all of her home medication including Lovenox for DVT prophylaxis of 40 mg subcutaneous daily. Patient reports pain is controlled currently and is ready to start her therapies. Subjective/Events-last exam Patient doing well Hypotension noted and may be related to her cardiomyopathy Patient reports the cough is improved on Advair inhaler and Xopenex nebulizer treatments twice a day Quit smoking a year ago No indication for any aggressive treatment for cough Checked meds and labs Remains a fall risk Pain is controlled Review of Systems Pulmonary: Cough Musculoskeletal: leg pain Objective Exam Vital Signs Vital Signs Date Time Temp Pulse Resp B/P (MAP) Pulse Ox O2 Delivery O2 Flow Rate FiO2 04/03/18 08:27 100 94/49 (64) 04/03/18 08:00 Room Air 04/03/18 07:30 97 04/03/18 06:04 97.0 20 Capillary Refill : General Appearance: No Apparent Distress, WD/WN, Chronically ill, Thin Respiratory: Chest Non Tender, Lungs Clear, Normal Breath Sounds, No Accessory Muscle Use, No Respiratory Distress Cardiovascular: Regular Rate, Rhythm, No Edema, No Gallop, No JVD, No Murmur, Normal Peripheral Pulses Neurologic/Psychiatric: Alert, Oriented x3, No Motor/Sensory Deficits, Normal Mood/Affect Skin: Normal Color, Warm/Dry Results/Procedures Lab Patient resulted labs reviewed. Assessment/Plan Assessment and Plan Assess & Plan/Chief Complaint Assessment: Debility following left hip fracture Renal cell carcinoma with metastases to the bone and lung Diabetes mellitus insulin-dependent CAD with recent stent placement on Brilinta managed by Dr. Keith at [place] Chronic pain on fentanyl patch s/p acute constipation s/p multiple SSE and Dr. Clements consultation appreciated now on Reglan with good results Chronic lower extremity edema Hyperlipidemia Stomach ulcers 3 weeks ago requiring surgical intervention Anemia Stage I pressure ulcer coccyx placed on air mattress and Calmoseptine Nausea placed on Reglan improved now COPD s/p wheezing so started Nebs and will change to Xopenex BID since Duoneb made her nauseated Cardiomyopathy EF < 30% likely will need Lifevest Hypotension may be related to cardiomyopathy Plan: Maintain aggressive therapy Pain control Home meds Cardiology consult is appreciated Maintain Brilinta Lovenox for DVT prophylaxis Constipation monitoring Air mattress Reglan for nausea Nebs to TID prn ICS Advair Xopenex BID IS Diagnosis/Problems Diagnosis/Problems (1) Closed left hip fracture Status: Acute Qualifiers: Encounter type: subsequent encounter Fracture healing: with routine healing Qualified Codes: S72.002D - Fracture of unspecified part of neck of left femur, subsequent encounter for closed fracture with routine healing (2) Constipation Status: Resolved Qualifiers: Constipation type: slow transit constipation Qualified Codes: K59.01 - Slow transit constipation Resolution Date/Time: 03/27/18 @ 12:59 (3) Metastatic renal cell carcinoma to bone Status: Chronic (4) Diabetes mellitus Status: Chronic Qualifiers: Diabetes mellitus type: type 2 Diabetes mellitus 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 intermodal 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 driver insulin use: with local intermodal truck driver use Diabetes mellitus complication status: with circulatory complication Diabetes mellitus complication detail: with other circulatory complications Qualified Codes: E11.59 - Type 2 diabetes mellitus with other circulatory complications; Z79.4 - local intermodal truck driver (current) use of insulin (5) Edema Status: Chronic Qualifiers: Edema type: localized Qualified Codes: R60.0 - Localized edema (6) GERD (gastroesophageal reflux disease) Status: Chronic Qualifiers: Esophagitis presence: without esophagitis Qualified Codes: K21.9 - Gastro- esophageal reflux disease without esophagitis (7) Chronic pain Status: Chronic Qualifiers: Chronic pain type: due to neoplasm Qualified Codes: G89.3 - Neoplasm related pain (acute) (chronic) (8) DVT prophylaxis Status: Acute (9) Myocardial infarct, old Status: Chronic (10) Stomach ulcer Status: Chronic Qualifiers: Gastric ulcer chronicity: unspecified ulcer chronicity Gastric ulcer complication status: unspecified whether hemorrhage or perforation present Qualified Codes: K25.9 - Gastric ulcer, unspecified as acute or chronic, without hemorrhage or perforation (11) CAD (coronary artery disease) Status: Chronic Qualifiers: Coronary Disease-Associated Artery/Lesion type: [place] artery [place] vs. transplanted heart: [place] heart Associated angina: without angina Qualified Codes: I25.10 - Atherosclerotic heart disease of [place] coronary artery without angina pectoris (12) Hip fracture requiring operative repair Status: Acute Qualifiers: Encounter type: subsequent encounter Fracture type: closed Laterality: left Fracture healing: with routine healing Qualified Codes: S72.002D - Fracture of unspecified part of neck of left femur, subsequent encounter for closed fracture with routine healing (13) Pressure injury of coccygeal region, stage 1 Status: Acute (14) Wheezing Status: Resolved Resolution Date/Time: 04/02/18 @ 14:15 (15) COPD (chronic obstructive pulmonary disease) Status: Chronic Qualifiers: COPD type: unspecified COPD Qualified Codes: J44.9 - Chronic obstructive pulmonary disease, unspecified (16) Cardiomyopathy Status: Acute Qualifiers: Cardiomyopathy type: unspecified Qualified Codes: I42.9 - Cardiomyopathy, unspecified (17) Olecranon bursitis Status: Acute Qualifiers: Laterality: left Qualified Codes: M70.22 - Olecranon bursitis, left elbow (18) Hypotension Status: Acute Qualifiers: Hypotension type: other hypotension type Qualified Codes: I95.89 - Other hypotension Clinical Quality Measures DVT/VTE Risk/Contraindication: Risk Factor Score Per Nursin RFS Level Per Nursing on Admit: 2=Moderate MICHELLE BONILLA DO Apr 03, 2018 08:37
--- NOTE | 2018-04-03 11:02 | Physical Therapy Daily Note ---
PT Daily Note-Current Subjective Pt. shares that she is concerned about getting her life vest today and hopes her can be here when it is initiated so he can learn bout it with her. Pt. states she has had very low BP yesterday and today and has felt woozy at times. Pt. was a little emotional today speaking about her cancer grace, but that she is very grateful for the drug Opdivo and the blessings of her life and family Pain Location: Medial Location Body Site: Back (low at sacrum) Pain Description: Ache Mental Status Patient Orientation: Normal For Age Transfers Therapy Code Descriptions/Definitions Functional [place] Measure: 0=Not Assessed/NA 4=Minimal Assistance 1=Total Assistance 5=Supervision or Setup 2=Maximal Assistance 6=Modified [place] 3=Moderate Assistance 7=Complete [place] Therapy Quality Codes: 6 Independent with activity with or without an assistive device 5 Patient requires set up or clean up by helper. Patient completes activity by themselves 4 Supervision or touching assist (CGA). [place] provide cues , steadying assist 3 The helper provides less than half the effort to complete the activity 2 The helper provides more than half the effort to complete the activity 1 Dependent. The helper does all the effort to complete an activity 7 Patient refused to complete or attempt activity 9 The patient did not perform the activity before the current illness or injury 88 Not attempted due to Medical conditions or safety concerns Transfers (B, C, W/C) (FIM): 6 Scootin Rollin Roll Left to Right (QC): 6 Supine to/from Sit: 6 Sit to/from Stand: 6 Sit to Lying (QC): 6 Sit to Stand (QC): 6 Chair/Kfp-qs-Eylie Xfer(QC): 6 Bed to/from Chair: 6 Car Transfer (QC): 6 pt. has some discomfort rolling to the left for sup to sit and has decided to switch sides of the bed with her so because she can get up easier rolling to the right to get up Weight Bearing Right Lower Extremity: Right Full Weight Bearing Left Lower Extremity: Left Weight Bearing/Tolerated Gait Training Does the Patient Walk?: Yes Gait (FIM): 6 Distance (FIM): 3=150 ft (175x2) Walk 10 feet (QC): 6 Walk 50 ft with 2 Turns(QC): 6 Walk 150 ft (QC): 6 Walking 10ft/uneven surface-QC: 6 Gait Level of Assist: 6 Gait Persons Needed: 0 Gait Assistive Device: FWW No LOB , safe use of FWW Wheelchair Training Does the Pt Use a Wheelchair?: Yes Wheelchair (FIM): 6 Wheelchair Distance: 3=150 ft Wheelchair Level of Assist: 6 Wheel 50 ft with 2 turns (QC): 6 Wheel 150 ft (QC): 6 Type of Wheelchair: Manual Stair Training Stair Training: Handrails/: 2 handrails Stairs (FIM): 5 #of Steps: 4 1 Step (curb) (QC): 5 4 Steps (QC): 5 Stairs: Pattern: Step to Level of Assist: 5 household exception, 5 steps with SBA Balance Picking up an Object (QC): 5 Exercises Supine Ex: Ankle pumps, Quad Set, Rolling, Glut sets, Heel Slides, Short Arc Quads, Scooting, Straight leg raise, Hip abd/add Supine Reps: 15 Assessment Current Status: Good Progress pt. with low BP this date: sup: 97/64 HR 96 sit: 100/66, HR 106 standin/62, HR100, walk followed by standing: BP 120/76, HR 100. Pt. has w /c and FWW with seat at home and was instructed by this VENEER SAWYER to use w/c if she ever felt "woozy" or dizzy at home, safety primary , fall prevention etc PT Short Term Goals Short Term Goals Time Frame: Mar 29, 2018 Transfers (B,C,W/C) (FIM): 7 Gait (FIM): 5 Distance (FIM): 3=150 ft Gait Assistive Device: FWW Stairs (FIM): 2 # of Steps: 4 PT Mcfp Goals Payroll Processor Goals PT Mcfp Goals Time Frame: Apr 06, 2018 Transfers (B,C,W/C) (FIM): 6 Sit to Lying (QC): 6 Lying-Sitting on Side/Bed(QC): 6 Sit to Stand (QC): 6 Rollin Roll Left to Right (QC): 6 Chair/Tya-eu-Vwgvt Xfer(QC): 6 Car Transfer (QC): 6 Does the Patient Walk: Yes Gait (FIM): 6 Walk 10 feet (QC): 6 Walk 10ft-Uneven Surface(QC): 6 Walk 50ft with 2 Turns (QC): 6 Walk 150 ft (QC): 6 Gait Assistive Device: FWW Does the Pt use WC or Scooter?: No Stairs (FIM): 5 (household) # of Steps: 4 1 Step (curb) (QC): 6 4 Steps (QC): 6 12 Steps (QC): 88 Picking up an Object (QC): 88 PT Plan Treatment/Plan Treatment Plan: Continue Plan of Care Treatment Plan: Bed Mobility, Education, Functional Activity Gay, Functional Strength, Group Therapy, Gait, Safety, Therapeutic Exercise, Transfers Treatment Duration: Apr 06, 2018 Frequency: Modified Program (IRF) Estimated Hrs Per Day: 1.5 hours per day Patient and/or Family Agrees t: Yes Safety Risks/Education Patient Education: Gait Training, Transfer Techniques, Steps, Correct Positioning, W/C Management, Disease Process, Safety Issues Teaching Recipient: Patient Teaching Methods: Demonstration, Discussion Response to Teaching: Verbalize Understanding, Return Demonstration, Reinforcement Needed Time/GCodes Time In: 1000 Time Out: 1100 Total Billed Treatment Time: 60 Total Billed Treatment 1,GT10m,FA30m,EX20m G Codes Necessary: ESTHELA Meng VENEER SAWYER Apr 03, 2018 11:02
--- NOTE | 2018-04-03 11:19 | NUR ---
PT EATING WELL, 93% MEALS. WEIGHT STABLE. INTAKE MEETING NEEDS AT THIS TIME. CONT SAME.
--- NOTE | 2018-04-03 11:29 | Occupational Ther Daily Note ---
OT Current Status-Daily Note Subjective Pt alert, sitting in recliner. Pt stated that she has been having difficulties with BP going up and down, will monitor. Pt agrees to therapy. No c/o pain at this time. Mental Status/Objective Patient Orientation: Person, Place, Time, Situation Therapy Code Descriptions/Definitions Functional [place] Measure: 0=Not Assessed/NA 4=Minimal Assistance 1=Total Assistance 5=Supervision or Setup 2=Maximal Assistance 6=Modified [place] 3=Moderate Assistance 7=Complete [place] Attachments: Central Line ADL-Treatment Therapy Code Descriptions/Definitions Functional [place] Measure: 0=Not Assessed/NA 4=Minimal Assistance 1=Total Assistance 5=Supervision or Setup 2=Maximal Assistance 6=Modified [place] 3=Moderate Assistance 7=Complete [place] Therapy Quality Codes: 6 Independent with activity with or without an assistive device 5 Patient requires set up or clean up by helper. Patient completes activity by themselves 4 Supervision or touching assist (CGA). [place] provide cues , steadying assist 3 The helper provides less than half the effort to complete the activity 2 The helper provides more than half the effort to complete the activity 1 Dependent. The helper does all the effort to complete an activity 7 Patient refused to complete or attempt activity 9 The patient did not perform the activity before the current illness or injury 88 Not attempted due to Medical conditions or safety concerns Other Treatment Pt able to maneuvered FWW through room and around objects in [facility] without difficulty. Took increased time to complete exercises today due to issues with BP. Arm bike completed for 12 min and light resistance with 1 recovery break to increase strength and activity tolerance for daily functional tasks. Pt ambulated back to room using FWW. After therapy, pt sitting in recliner with call light/phone in reach. All needs met in room. Nrsg present in room. OT Short Term Goals Short Term Goals Time Frame: Apr 05, 2018 Eating(FIM): 6 Grooming(FIM): 6 Bathing(FIM): 5 Bathing Location: L Arm, R Arm, L Upper Leg, R Upper Leg, L Lower Leg ( including foot), R Lower Leg (including foot), Chest, Abdomen, Buttocks, Perineal Area Upper Body Dressing(FIM): 7 Lower Body Dressing(FIM): 6 Toileting(FIM): 6 Transfers (B,C,W/C) (FIM): 7 Toilet/Commode Transfer(FIM): 7 Tub Transfer(FIM): 2 Shower Transfer(FIM): 7 Additional Short Term Goals: 1-Demonstrate ADL Tasks, 2-Verbalize Understanding , 3-ImproveStrength/Gay 1=Demonstrate adherence to instructed precautions during ADL tasks. 2=Patient will verbalize/demonstrate understanding of assistive devices/ modifications for ADL. 3=Patient will improve strength/tolerance for activity to enable patient to perform ADL's. OT Longterm Goals Pipe Fitter Maintenance Goals Time Frame: Apr 19, 2018 Eating (FIM): 7 (met) Eating (QC): 6 (met) Groomin (met) Oral Hygiene (QC): 6 (met) Bathing(FIM): 6 (met) Bathing Location: L Arm, R Arm, L Upper Leg, R Upper Leg, L Lower Leg ( including foot), R Lower Leg (including foot), Chest, Abdomen, Buttocks, Perineal Area Shower/Bathe Self (QC): 6 (met) Upper Body Dressing(FIM): 7 (not met) Upper Body Dressing (QC): 6 (met) Lower Body Dressing(FIM): 6 (met) Lower Body Dressing (QC): 6 (met) On/Off Footwear (QC): 6 (met) Toileting(FIM): 6 (met) Toileting Hygiene (QC): 6 (met) Transfers (B,C,W/C) (FIM): 6 (et) Toilet/Commode Transfer(FIM): 6 (met) Toilet/Commode Transfer (QC): 6 (met) Tub Transfer(FIM): 6 (met) Shower Transfer(FIM): 6 (met) Additional Goals: 1-Demonstrate ADL Tasks, 2-Verbalize Understanding, 3- ImproveStrength/Gay 1=Demonstrate adherence to instructed precautions during ADL tasks. 2=Patient will verbalize/demonstrate understanding of assistive devices/ modifications for ADL. 3=Patient will improve strength/tolerance for activity to enable patient to perform ADL's. OT Education/Plan Discharge Recommendations Plan/Recommendations: Continue POC Therapy D/C Recommendations: Occupational Therapy Home Care Treatment Plan/Plan of Care Patient would benefit from OT for education, treatment and training to promote independence in ADL's, mobility, safety and/or upper extremity function for ADL' s. Plan of Care: ADL Retraining, Caregiver Training, Functional Mobility, Group Exercise/Act as Ind, UE Funct Exercise/Act, UE Neuromus Re-Ed/Coord Treatment Duration: Apr 19, 2018 Frequency: At least 5 of 7 days/Wk (IRF) Estimated Hrs Per Day: 1.5 hours per day Agreement: Yes Rehab Potential: Good Time/GCodes Start Time: 11:00 Stop Time: 11:30 Total Time Billed (hr/min): 30 Billed Treatment Time 1 visit-EX 1 (15 min) FA 1 (15 min) ERIN VELASCO Apr 03, 2018 11:29
[2018-04-03] MEDS: HYDROcodone/APAP 10 MG/325 MG (LORTAB) TAB PO PRN (12:11)
--- NOTE | 2018-04-03 14:40 | Cardiology Progress Note ---
Cardiology SOAP Progress Note Subjective: No cardiac complaints. Objective: I&O/Vital Signs 04/03/18 04/03/18 04/03/18 04/03/18 06:04 07:30 08:00 08:27 Temp 97.0 Pulse 91 100 Resp 20 B/P (MAP) 93/44 (60) 94/49 (64) Pulse Ox 93 97 O2 Delivery Room Air Room Air Room Air 04/03/18 00:00 Intake Total 810 ml Balance 810 ml Weight (Pounds): 176 Weight (Ounces): 1.6 Weight (Calculated Kilograms): 79.967403 Constitutional: appears stated age, AAO x 3; No apparent distress; well- developed, well-nourished Respiratory: No accessory muscle use, No respiratory distress, No chest tender , No chest expansion is symmetric; chest is bilaterally symmetric; No lungs clear to percussion; lungs clear to auscultation; No crackles, No rhonchi, No rales, No stridor, No wheezing, No pleural rub, No other Cardiovascular: regular rate-rhythm; No irregularly irregular, No extra beats, No parasternal heave is noted, No JVD, No edema, No bradycardia, No tachycardia , No point of maximal impulse, No cardiac thrills are palpable; S1 and S2; No gallop/S3, No gallop/S4, No diastolic murmur, No systolic murmur, No friction rub, No click, No other Gastrointestional: No tender, No soft, No round, No distended, No pulsatile mass, No organomegaly, No guarding, No rebound, No tenderness, No hernia, No mass, No audible bowel sounds, No abnormal bowel sounds, No abdominal bruits, No spleenomegaly, No other Extremities: No normal range of motion, No non-tender, No normal inspection, No pedal edema, No calf tenderness, No normal capillary refill, No pelvis stable , No calf tenderness, No inflammation, No pedal edema, No slow capillary refill , No swelling, No other, No abrasion, No clubbing, No cyanosis, No ecchymosis, No laceration, No no lower extremity edema bilateral, No significant edema, No tenderness, No wound Neurologic/Psychiatric: no motor/sensory deficits, alert, normal mood/affect, oriented x 3, power is 5/5 both on sides Skin: No normal color, No warm/dry, No cyanosis, No cool, No diaphoresis, No damp, No ecchymosis, No jaundice, No mottled, No pallor, No rash, No tattoos/ piercings, No ulcerations, No rash on exposed areas, No ulcerations on exposed areas, No other Results/Procedures: Labs Laboratory Tests 04/02/18 15:42: Glucometer 125H 04/02/18 20:52: Glucometer 197H 04/03/18 06:22: Glucometer 124H 04/03/18 11:21: Glucometer 166H A/P: Assessment/Dx: Hip fracture, inpatient rehabilitation, History of VA/CAD/PCI, 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 improved after switching carvedilol, Hyperlipidemia, Hypertension, History of renal cell carcinoma with metastases to the lungs. Plan: Hip fracture, inpatient rehabilitation, History of VA/CAD/PCI, continue dual antiplatelet therapy with aspirin and Brilinta. Continue statin and beta lindsay. Echocardiogram showed EF of 30-35 percent. Dilated LV suggesting dilated ischemic cardiomyopathy. I discussed at length with the patient and had a long conversation about her wishes and how aggressive showed her cardiac care be. Due to the fact that she has stage IV cancer. A lifevest will be for 3 months and is used as a bridge to either an ICD or if the EF improves to continue his medical therapy. I also did tell her that in all ICD trials benefit is seen in those patients that have a survival of at least 18 months to 2 years. She tells me that her cancer is in remission and her oncologist is in [place]. It is not possible to get hold of the oncologist over the weekend. I also discussed at length with the patient's daughter. What we have mutually decided is to go ahead with a lifevest and then as an outpatient she can have a discussion with her ultrasonic tester Dr. Encarnacion and her oncologist about prognosis of her stage IV cancer and whether or not she'll be a candidate for further primary prevention of sudden cardiac . Ischemic cardiomyopathy, however the patient is euvolemic therefore will avoid Lasix. Borderline hypotension with dizziness, put parameters for BB dosing. Do not give if SBP < 110 mmhg. Hyperlipidemia, pravastatin. Hypertension, carvedilol dced and started on low dose metoprolol. History of renal cell carcinoma. Thank you for your consultation. Please call me if you have any questions. Anton Potts MD, FACP, FACC, FSCAI, FHRS, CCDS Interventional Cardiology Cardiac Electrophysiology Vascular Medicine and Endovascular Interventions Velma POTTS MD Apr 03, 2018 2:40 pm
--- NOTE | 2018-04-03 14:51 | Physical Therapy Daily Note ---
PT Daily Note-Current Subjective Pt. states she is waiting for the life vest to arrive and anxious to find out what it really entails. Pt. shared some history of her cancer grace and how it affected her and her financially Pain Numeric Pain Scale: 2 Location: Medial Location Body Site: Back (low) Pain Description: Ache Mental Status Patient Orientation: Normal For Age Transfers Therapy Code Descriptions/Definitions Functional [place] Measure: 0=Not Assessed/NA 4=Minimal Assistance 1=Total Assistance 5=Supervision or Setup 2=Maximal Assistance 6=Modified [place] 3=Moderate Assistance 7=Complete [place] Therapy Quality Codes: 6 Independent with activity with or without an assistive device 5 Patient requires set up or clean up by helper. Patient completes activity by themselves 4 Supervision or touching assist (CGA). [place] provide cues , steadying assist 3 The helper provides less than half the effort to complete the activity 2 The helper provides more than half the effort to complete the activity 1 Dependent. The helper does all the effort to complete an activity 7 Patient refused to complete or attempt activity 9 The patient did not perform the activity before the current illness or injury 88 Not attempted due to Medical conditions or safety concerns all TRFs Mod I Weight Bearing Right Lower Extremity: Right Full Weight Bearing Left Lower Extremity: Left Weight Bearing/Tolerated Gait Training Gait Assistive Device: FWW [id number] SBA, no dizziness this pm Exercises NuStep Minutes: 12 NuStep Workload: 3 Assessment Current Status: Good Progress meets goals PT Short Term Goals Short Term Goals Time Frame: Mar 29, 2018 Transfers (B,C,W/C) (FIM): 7 Gait (FIM): 5 Distance (FIM): 3=150 ft Gait Assistive Device: FWW Stairs (FIM): 2 # of Steps: 4 PT Long Winder Tender Goals Long Winder Tender Goals PT Long Winder Tender Goals Time Frame: Apr 06, 2018 Transfers (B,C,W/C) (FIM): 6 Sit to Lying (QC): 6 Lying-Sitting on Side/Bed(QC): 6 Sit to Stand (QC): 6 Rollin Roll Left to Right (QC): 6 Chair/Vsb-tu-Ckuac Xfer(QC): 6 Car Transfer (QC): 6 Does the Patient Walk: Yes Gait (FIM): 6 Walk 10 feet (QC): 6 Walk 10ft-Uneven Surface(QC): 6 Walk 50ft with 2 Turns (QC): 6 Walk 150 ft (QC): 6 Gait Assistive Device: FWW Does the Pt use WC or Scooter?: No Stairs (FIM): 5 (household) # of Steps: 4 1 Step (curb) (QC): 6 4 Steps (QC): 6 12 Steps (QC): 88 Picking up an Object (QC): 88 PT Plan Treatment/Plan Treatment Plan: Continue Plan of Care Treatment Plan: Bed Mobility, Education, Functional Activity Gay, Functional Strength, Group Therapy, Gait, Safety, Therapeutic Exercise, Transfers Treatment Duration: Apr 06, 2018 Frequency: Modified Program (IRF) Estimated Hrs Per Day: 1.5 hours per day Patient and/or Family Agrees t: Yes Safety Risks/Education Patient Education: Gait Training, Transfer Techniques Teaching Recipient: Patient Teaching Methods: Demonstration, Discussion Response to Teaching: Verbalize Understanding, Return Demonstration, Reinforcement Needed Time/GCodes Time In: 1415 Time Out: 1445 Total Billed Treatment Time: 30 Total Billed Treatment 1,EX12,GT18 G Codes Necessary: ESTHELA Meng SOAKERS SUPERVISOR Apr 03, 2018 14:50
[2018-04-03 17:53] VITALS: BP 111/53
[2018-04-03] MEDS: ENOXAPARIN 40 MG/0.4 ML (LOVENOX) SYR SC SCH (17:55)
[2018-04-03] MEDS: fentaNYL PATCH 25 MCG (DURAGESIC) TD SCH (18:01)
--- NOTE | 2018-04-03 18:01 | NUR ---
PT STATES THAT THIS AM IN WHILE IN SHOWER HER FENTANYL PATCH FELL OFF AND OT THREW IT IN THE TRASH, THIS RN EXAMINED PT SKIN AND DID NOT SEE FENTANYL PATCH PRESENT. NEW PATCH APPLIED AT THIS TIME.
[2018-04-03 21:00] VITALS: BP 96/63
[2018-04-03] MEDS: CYCLOBENZAPRINE 10 MG (FLEXERIL) TAB PO PRN (21:32)
[2018-04-03] MEDS: MELATONIN 3 MG TABLET PO PRN (21:32)
[2018-04-03] MEDS: SIMvastatin 20 MG (ZOCOR) TAB PO SCH (21:32)
[2018-04-04 06:00] VITALS: BP 102/66
[2018-04-04] MEDS: LACTOBACILLUS ACIDOPHILUS (PROBIOTIC) CAPSULE PO SCH ×2 (06:44→10:45)
[2018-04-04] MEDS: RT-LEVALBUTEROL (XOPENEX) 1.25 MG/3 ML NEB NON-FORMULARY INH SCH (07:53)
[2018-04-04] MEDS: RT-ADVAIR HFA 115/21 MCG PER PUFF IH SCH (07:54)
[2018-04-04 08:15] VITALS: BP 93/55
[2018-04-04 08:18] VITALS: BP 87/51
[2018-04-04 08:22] VITALS: BP 100/66
[2018-04-04] MEDS: TICAGRELOR 90 MG TABLET (BRILINTA) PO SCH (08:23)
[2018-04-04] MEDS: ASPIRIN E.C. 81 MG (ECOTRIN) TAB PO SCH (08:23)
[2018-04-04] MEDS: PANTOPRAZOLE 40 MG (PROTONIX) TAB PO SCH (08:23)
[2018-04-04] MEDS: meTOprolol TARTRATE 25 MG (LOPRESSOR) TABLET PO SCH (08:24)
--- NOTE | 2018-04-04 08:24 | NUR ---
PT'S CTRS IS DR. CERRATO, AT [facility], IN [place].
--- NOTE | 2018-04-04 08:24 | Discharge Summary ---
Diagnosis/Chief Complaint Date of Admission Mar 22, 2018 at 14:10 Date of Discharge Discharge Date: Apr 04, 2018 Discharge Time: 1000 Discharge Diagnosis Assessment: Debility following left hip fracture Renal cell carcinoma with metastases to the bone and lung Diabetes mellitus insulin-dependent CAD with recent stent placement on Brilinta managed by Dr. Keith at [place] Chronic pain on fentanyl patch s/p acute constipation s/p multiple SSE and Dr. Clements consultation appreciated now on Reglan with good results Chronic lower extremity edema Hyperlipidemia Stomach ulcers 3 weeks ago requiring surgical intervention Anemia Stage I pressure ulcer coccyx placed on air mattress and Calmoseptine Nausea placed on Reglan improved now COPD s/p wheezing so started Nebs and will change to Xopenex BID since Duoneb made her nauseated Cardiomyopathy EF < 30% likely will need Lifevest Hypotension may be related to cardiomyopathy Plan: Maintain aggressive therapy Pain control Home meds Cardiology consult is appreciated Maintain Brilinta Lovenox for DVT prophylaxis Constipation monitoring Air mattress Reglan for nausea Nebs to TID prn ICS Advair Xopenex BID IS Discharge Summary Discharge Physical Examination Allergies: Coded Allergies: Penicillins (Verified Allergy, Unknown, 03/22/18) codeine (Verified Allergy, Unknown, 03/22/18) morphine (Verified Allergy, Unknown, 03/22/18) oxycodone (Verified Allergy, Unknown, 03/22/18) Vitals & I&Os Vital Signs Date Time Temp Pulse Resp B/P (MAP) Pulse Ox O2 Delivery O2 Flow Rate FiO2 04/04/18 11:30 69 20 100/66 97 Room Air 04/04/18 08:22 97.8 Hospital Course Was the Problem List Reviewed?: Yes Hospital course: This is a patient who was accepted from [facility] after sustaining a left femur fracture sustained in a fall had an uncomplicated repair it was monitor closely but in need of extensive and intensive physical therapy prior to returning home with her family. Her hospital course was fairly standard but narcotic bowel required general surgery consultation and aggressive treatment which finally resolved 4 days after admission. She is maintained on fentanyl patch and pain medication regimen that was originally started at [facility]. Cardiology was consulted for tachycardia and hypotension and echocardiogram revealed ejection fraction of less than 30% so LifeVest was required and was placed 1 day prior to discharge. 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 Keith. Overall she had no significant events did not require any antibiotic therapy during the hospital stay and COPD exacerbation was managed with Advair inhaler and nebulizer treatments and incentive spirometer. Blood sugars remained stable on home insulin dose. She participated in all therapies and was able to ambulate with a walker and was counseled for safety precautions and fall prevention and overall she did extremely well but held beta-lindsay due to bradycardia and hypotension at day of discharge. Labs (last 24 hrs) Laboratory Tests 03/22/18 16:45: Glucometer 177H 03/22/18 20:11: Glucometer 244H 03/23/18 05:24: Glucometer 100 03/23/18 05:50: White Blood Count 7.3, Red Blood Count 3.77L, Hemoglobin 10.8L, Hematocrit 33L, Mean Corpuscular Volume 88, Mean Corpuscular Hemoglobin 29, Mean Corpuscular Hemoglobin Concent 32, Red Cell Distribution Width 15.0H, Platelet Count 291, Mean Platelet Volume 10.0, Neutrophils (%) (Auto) 57, Lymphocytes (%) (Auto) 20 , Monocytes (%) (Auto) 14H, Eosinophils (%) (Auto) 10, Basophils (%) (Auto) 0, Neutrophils # (Auto) 4.2, Lymphocytes # (Auto) 1.4, Monocytes # (Auto) 1.0, Eosinophils # (Auto) 0.7H, Basophils # (Auto) 0.0, Sodium Level 137, Potassium Level 3.9, Chloride Level 101, Carbon Dioxide Level 26, Anion Gap 10, Blood Urea Nitrogen 16, Creatinine 1.07, Estimat Glomerular Filtration Rate 52, BUN/ Creatinine Ratio 15, Glucose Level 84, Calcium Level 9.4, Corrected Calcium 10.0 , Total Bilirubin 0.4, Aspartate Amino Transf (AST/SGOT) 14, Alanine Aminotransferase (ALT/SGPT) < 6, Alkaline Phosphatase 73, Total Protein 6.9, Albumin 3.3 03/23/18 10:43: Glucometer 107 03/23/18 16:09: Glucometer 108 03/23/18 20:32: Glucometer 179H 03/24/18 06:29: Glucometer 132H 03/24/18 14:20: Glucometer 162H 03/24/18 15:56: Glucometer 125H 03/24/18 20:39: Glucometer 158H 03/25/18 05:41: Glucometer 150H 03/25/18 11:12: Glucometer 198H 03/25/18 16:22: Glucometer 89 03/25/18 20:36: Glucometer 68L 03/25/18 21:14: Glucometer 80 03/26/18 00:26: Glucometer 115H 03/26/18 05:28: Glucometer 168H 03/26/18 11:29: Glucometer 256H 03/26/18 16:05: Glucometer 192H 03/26/18 20:34: Glucometer 195H 03/27/18 05:49: Glucometer 59*L 03/27/18 06:27: Glucometer 55*L 03/27/18 07:38: Glucometer 148H 03/27/18 10:56: Glucometer 150H 03/27/18 16:15: Glucometer 162H 03/27/18 20:12: Glucometer 191H 03/28/18 05:01: Glucometer 157H 03/28/18 10:57: Glucometer 167H 03/28/18 16:36: Glucometer 153H 03/28/18 20:45: Glucometer 219H 03/29/18 04:55: White Blood Count 10.2, Red Blood Count 3.46L, Hemoglobin 9.8L, Hematocrit 31L, Mean Corpuscular Volume 89, Mean Corpuscular Hemoglobin 28, Mean Corpuscular Hemoglobin Concent 32, Red Cell Distribution Width 14.8H, Platelet Count 485H, Mean Platelet Volume 9.3, Neutrophils (%) (Auto) 69, Lymphocytes (%) (Auto) 13, Monocytes (%) (Auto) 12, Eosinophils (%) (Auto) 6, Basophils (%) (Auto) 0, Neutrophils # (Auto) 7.0, Lymphocytes # (Auto) 1.3, Monocytes # (Auto) 1.2H, Eosinophils # (Auto) 0.6H, Basophils # (Auto) 0.0, Sodium Level 136, Potassium Level 4.3, Chloride Level 101, Carbon Dioxide Level 25, Anion Gap 10, Blood Urea Nitrogen 18, Creatinine 1.15, Estimat Glomerular Filtration Rate 48, BUN/ Creatinine Ratio 16, Glucose Level 165H, Calcium Level 9.0, Corrected Calcium 9.7, Total Bilirubin 0.4, Aspartate Amino Transf (AST/SGOT) 14, Alanine Aminotransferase (ALT/SGPT) 6, Alkaline Phosphatase 102, Total Protein 6.5, Albumin 3.1L 03/29/18 11:18: Glucometer 194H 03/29/18 16:26: Glucometer 200H 03/29/18 21:06: Glucometer 187H 03/30/18 06:07: Glucometer 191H 03/30/18 11:00: Glucometer 218H 03/30/18 20:44: Glucometer 269H 03/31/18 06:18: Glucometer 166H 03/31/18 10:58: Glucometer 248H 03/31/18 16:22: Glucometer 148H 03/31/18 20:20: Glucometer 170H 04/01/18 06:00: Glucometer 125H 04/01/18 10:50: Glucometer 171H 04/01/18 15:56: Glucometer 172H 04/01/18 20:26: Glucometer 162H 04/02/18 05:40: Glucometer 153H 04/02/18 10:58: Glucometer 204H 04/02/18 15:42: Glucometer 125H 04/02/18 20:52: Glucometer 197H 04/03/18 06:22: Glucometer 124H 04/03/18 11:21: Glucometer 166H 04/03/18 16:38: Glucometer 162H 04/03/18 21:30: Glucometer 195H 04/04/18 06:41: Glucometer 165H Pending Labs Laboratory Tests 03/22/18 16:45: Glucometer 177 03/22/18 20:11: Glucometer 244 03/23/18 05:24: Glucometer 100 03/23/18 05:50: White Blood Count 7.3, Red Blood Count 3.77, Hemoglobin 10.8, Hematocrit 33, Mean Corpuscular Volume 88, Mean Corpuscular Hemoglobin 29, Mean Corpuscular Hemoglobin Concent 32, Red Cell Distribution Width 15.0, Platelet Count 291, Mean Platelet Volume 10.0, Neutrophils (%) (Auto) 57, Lymphocytes (%) (Auto) 20 , Monocytes (%) (Auto) 14, Eosinophils (%) (Auto) 10, Basophils (%) (Auto) 0, Neutrophils # (Auto) 4.2, Lymphocytes # (Auto) 1.4, Monocytes # (Auto) 1.0, Eosinophils # (Auto) 0.7, Basophils # (Auto) 0.0, Sodium Level 137, Potassium Level 3.9, Chloride Level 101, Carbon Dioxide Level 26, Anion Gap 10, Blood Urea Nitrogen 16, Creatinine 1.07, Estimat Glomerular Filtration Rate 52, BUN/ Creatinine Ratio 15, Glucose Level 84, Calcium Level 9.4, Corrected Calcium 10.0 , Total Bilirubin 0.4, Aspartate Amino Transf (AST/SGOT) 14, Alanine Aminotransferase (ALT/SGPT) < 6, Alkaline Phosphatase 73, Total Protein 6.9, Albumin 3.3 03/23/18 10:43: Glucometer 107 03/23/18 16:09: Glucometer 108 03/23/18 20:32: Glucometer 179 03/24/18 06:29: Glucometer 132 03/24/18 14:20: Glucometer 162 03/24/18 15:56: Glucometer 125 03/24/18 20:39: Glucometer 158 03/25/18 05:41: Glucometer 150 03/25/18 11:12: Glucometer 198 03/25/18 16:22: Glucometer 89 03/25/18 20:36: Glucometer 68 03/25/18 21:14: Glucometer 80 03/26/18 00:26: Glucometer 115 03/26/18 05:28: Glucometer 168 03/26/18 11:29: Glucometer 256 03/26/18 16:05: Glucometer 192 03/26/18 20:34: Glucometer 195 03/27/18 05:49: Glucometer 59 03/27/18 06:27: Glucometer 55 03/27/18 07:38: Glucometer 148 03/27/18 10:56: Glucometer 150 03/27/18 16:15: Glucometer 162 03/27/18 20:12: Glucometer 191 03/28/18 05:01: Glucometer 157 03/28/18 10:57: Glucometer 167 03/28/18 16:36: Glucometer 153 03/28/18 20:45: Glucometer 219 03/29/18 04:55: White Blood Count 10.2, Red Blood Count 3.46, Hemoglobin 9.8, Hematocrit 31, Mean Corpuscular Volume 89, Mean Corpuscular Hemoglobin 28, Mean Corpuscular Hemoglobin Concent 32, Red Cell Distribution Width 14.8, Platelet Count 485, Mean Platelet Volume 9.3, Neutrophils (%) (Auto) 69, Lymphocytes (%) (Auto) 13, Monocytes (%) (Auto) 12, Eosinophils (%) (Auto) 6, Basophils (%) (Auto) 0, Neutrophils # (Auto) 7.0, Lymphocytes # (Auto) 1.3, Monocytes # (Auto) 1.2, Eosinophils # (Auto) 0.6, Basophils # (Auto) 0.0, Sodium Level 136, Potassium Level 4.3, Chloride Level 101, Carbon Dioxide Level 25, Anion Gap 10, Blood Urea Nitrogen 18, Creatinine 1.15, Estimat Glomerular Filtration Rate 48, BUN/ Creatinine Ratio 16, Glucose Level 165, Calcium Level 9.0, Corrected Calcium 9.7 , Total Bilirubin 0.4, Aspartate Amino Transf (AST/SGOT) 14, Alanine Aminotransferase (ALT/SGPT) 6, Alkaline Phosphatase 102, Total Protein 6.5, Albumin 3.1 03/29/18 11:18: Glucometer 194 03/29/18 16:26: Glucometer 200 03/29/18 21:06: Glucometer 187 03/30/18 06:07: Glucometer 191 03/30/18 11:00: Glucometer 218 03/30/18 20:44: Glucometer 269 03/31/18 06:18: Glucometer 166 03/31/18 10:58: Glucometer 248 03/31/18 16:22: Glucometer 148 03/31/18 20:20: Glucometer 170 04/01/18 06:00: Glucometer 125 04/01/18 10:50: Glucometer 171 04/01/18 15:56: Glucometer 172 04/01/18 20:26: Glucometer 162 04/02/18 05:40: Glucometer 153 04/02/18 10:58: Glucometer 204 04/02/18 15:42: Glucometer 125 04/02/18 20:52: Glucometer 197 04/03/18 06:22: Glucometer 124 04/03/18 11:21: Glucometer 166 04/03/18 16:38: Glucometer 162 04/03/18 21:30: Glucometer 195 04/04/18 06:41: Glucometer 165 Discharge Home Medications: Active Scripts Active Calmoseptine Ointment (Menthol/Lanolin/Calamine/Znox) 71 Gm Oint 0 Gm TOP TID Enoxaparin Sodium 40 Mg/0.4 Ml Syringe 40 Mg SC Q24H Cyclobenzaprine HCl 10 Mg Tablet 5 Mg PO TID PRN Hydrocodon-Acetaminophn 10-325 (Hydrocodone/Acetaminophen) 1 Each Tablet 1 Tab PO Q6H PRN Duragesic Patch 25MCG (Fentanyl) 1 Each Patch.td72 25 Mcg TD Q72H Reported Pantoprazole Sodium 40 Mg Tablet.dr 40 Mg PO 0800,1800 Pravastatin Sodium 40 Mg Tablet 40 Mg PO HS Potassium Chloride 20 Meq Tablet.er 20 Meq PO DAILY PRN Furosemide 80 Mg Tablet 80 Mg PO DAILY PRN Brilinta (Ticagrelor) 90 Mg Tablet 90 Mg PO BID Aspirin EC (Aspirin) 81 Mg Tablet.dr 81 Mg PO DAILY Novolog Flexpen (Insulin Aspart) 300 Units/3 Ml Solution 10 Units SQ AC PRN Levemir Flextouch (Insulin Detemir) 100 Unit/1 Ml Insuln.pen SQ UD TAKES 50 UNITS BEFORE BREAKFAST IF BS > 200 TAKES 50 UNITS BEFORE EVENING MEAL IF BS >225 Instructions to patient/family Please see electronic discharge instructions given to patient. Diagnosis/Problems Diagnosis/Problems (1) Closed left hip fracture Status: Acute Qualifiers: Qualified Codes: S72.002D - Fracture of unspecified part of neck of left femur, subsequent encounter for closed fracture with routine healing (2) Constipation Status: Resolved Qualifiers: Qualified Codes: K59.01 - Slow transit constipation Resolution Date/Time: 03/27/18 @ 12:59 (3) Metastatic renal cell carcinoma to bone Status: Chronic (4) Diabetes mellitus Status: Chronic Qualifiers: Qualified Codes: E11.59 - Type 2 diabetes mellitus with other circulatory complications; Z79.4 - oysterman (current) use of insulin (5) Edema Status: Chronic Qualifiers: Qualified Codes: R60.0 - Localized edema (6) GERD (gastroesophageal reflux disease) Status: Chronic Qualifiers: Qualified Codes: K21.9 - Gastro-esophageal reflux disease without esophagitis (7) Chronic pain Status: Chronic Qualifiers: Qualified Codes: G89.3 - Neoplasm related pain (acute) (chronic) (8) DVT prophylaxis Status: Acute (9) Myocardial infarct, old Status: Chronic (10) Stomach ulcer Status: Chronic Qualifiers: Qualified Codes: K25.9 - Gastric ulcer, unspecified as acute or chronic, without hemorrhage or perforation (11) CAD (coronary artery disease) Status: Chronic Qualifiers: Qualified Codes: I25.10 - Atherosclerotic heart disease of [place] coronary artery without angina pectoris (12) Hip fracture requiring operative repair Status: Acute Qualifiers: Qualified Codes: S72.002D - Fracture of unspecified part of neck of left femur, subsequent encounter for closed fracture with routine healing (13) Pressure injury of coccygeal region, stage 1 Status: Acute (14) Wheezing Status: Resolved Resolution Date/Time: 04/02/18 @ 14:15 (15) COPD (chronic obstructive pulmonary disease) Status: Chronic Qualifiers: Qualified Codes: J44.9 - Chronic obstructive pulmonary disease, unspecified (16) Cardiomyopathy Status: Acute Qualifiers: Qualified Codes: I42.9 - Cardiomyopathy, unspecified (17) Olecranon bursitis Status: Acute Qualifiers: Qualified Codes: M70.22 - Olecranon bursitis, left elbow (18) Hypotension Status: Acute Qualifiers: Qualified Codes: I95.89 - Other hypotension Clinical Quality Measures DVT/VTE Risk/Contraindication: Risk Factor Score Per Nursin RFS Level Per Nursing on Admit: 2=Moderate MICHELLE BONILLA DO Apr 04, 2018 08:24
[2018-04-04] MEDS: POLYETHYLENE GLYCOL 17 GM (MIRALAX) PACK PO SCH (08:27)
[2018-04-04] MEDS: inSUlin DETERMIR 1 UNIT/0.01 ML (LEVEMIR) CHARGE PER UNIT SQ SCH (08:27)
[2018-04-04] MEDS: SENNA W/DOCUSATE (SENOKOT S) TABLET PO SCH (08:27)
[2018-04-04] MEDS: MENTHOL/ZINC OXIDE (CALMOSEPTINE) 113 GM TUBE TOP SCH (08:28)
[2018-04-04] MEDS: FENTANYL PATCH REMOVAL TP SCH (08:38)
--- NOTE | 2018-04-04 08:38 | NUR ---
Duragesic patch was placed yesterday evng d/t it fell off during shower. Present patch is intact, on pt's upper Lt shoulder, placed date & time this was placed on. Pt didn't want an OpSite over it. States that she's used to wearing them this way, but, that she knows she can buy them at the drug store if she needs them.
[2018-04-04] MEDS ORDERED: HEParin (CENTRAL IV FLUSH) 500 UNIT/5 ML SYR IV NR (09:00)
--- NOTE | 2018-04-04 09:02 | NUR ---
Pt states, & this was reported in the initial nsg report, that they heparinize pt's infuse a port prior to de-accessing it. Pt states that she has this done q 4-6 weeks, notified Dr. Granados & rec'd order to heparinize port prior to de-accessing. Spoke abida Cleary in Pharmacy to notify of order.
--- NOTE | 2018-04-04 09:17 | Cardiology Progress Note ---
Cardiology SOAP Progress Note Subjective: No cardiac complaints. Objective: I&O/Vital Signs 04/04/18 04/04/18 04/04/18 04/04/18 06:00 07:53 08:15 08:18 Temp 97.3 97.3 Pulse 86 66 Resp 16 20 B/P (MAP) 102/66 (78) 93/55 (68) 87/51 (63) Pulse Ox 94 95 96 O2 Delivery Room Air Room Air Room Air 04/04/18 08:22 B/P (MAP) 100/66 (77) 04/04/18 00:00 Intake Total 500 ml Balance 500 ml Weight (Pounds): 176 Weight (Ounces): 1.6 Weight (Calculated Kilograms): 79.195326 Constitutional: appears stated age, AAO x 3; No apparent distress; well- developed, well-nourished Respiratory: No accessory muscle use, No respiratory distress, No chest tender , No chest expansion is symmetric; chest is bilaterally symmetric; No lungs clear to percussion; lungs clear to auscultation; No crackles, No rhonchi, No rales, No stridor, No wheezing, No pleural rub, No other Cardiovascular: regular rate-rhythm; No irregularly irregular, No extra beats, No parasternal heave is noted, No JVD, No edema, No bradycardia, No tachycardia , No point of maximal impulse, No cardiac thrills are palpable; S1 and S2; No gallop/S3, No gallop/S4, No diastolic murmur, No systolic murmur, No friction rub, No click, No other Gastrointestional: No tender, No soft, No round, No distended, No pulsatile mass, No organomegaly, No guarding, No rebound, No tenderness, No hernia, No mass, No audible bowel sounds, No abnormal bowel sounds, No abdominal bruits, No spleenomegaly, No other Extremities: No normal range of motion, No non-tender, No normal inspection, No pedal edema, No calf tenderness, No normal capillary refill, No pelvis stable , No calf tenderness, No inflammation, No pedal edema, No slow capillary refill , No swelling, No other, No abrasion, No clubbing, No cyanosis, No ecchymosis, No laceration, No no lower extremity edema bilateral, No significant edema, No tenderness, No wound Neurologic/Psychiatric: no motor/sensory deficits, alert, normal mood/affect, oriented x 3, power is 5/5 both on sides Skin: No normal color, No warm/dry, No cyanosis, No cool, No diaphoresis, No damp, No ecchymosis, No jaundice, No mottled, No pallor, No rash, No tattoos/ piercings, No ulcerations, No rash on exposed areas, No ulcerations on exposed areas, No other Results/Procedures: Labs Laboratory Tests 04/03/18 11:21: Glucometer 166H 04/03/18 16:38: Glucometer 162H 04/03/18 21:30: Glucometer 195H 04/04/18 06:41: Glucometer 165H A/P: Assessment/Dx: Hip fracture, inpatient rehabilitation, History of IN/CAD/PCI, 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 improved after switching carvedilol, Hyperlipidemia, Hypertension, History of renal cell carcinoma with metastases to the lungs. Plan: Hip fracture, inpatient rehabilitation, History of IN/CAD/PCI, continue dual antiplatelet therapy with aspirin and Brilinta. Continue statin. NO beta lindsay or MARIAELENA inhibitor due to hypotension. Echocardiogram showed EF of 30-35 percent. Dilated LV suggesting dilated ischemic cardiomyopathy. I discussed at length with the patient and had a long conversation about her wishes and how aggressive showed her cardiac care be. Due to the fact that she has stage IV cancer. A lifevest will be for 3 months and is used as a bridge to either an ICD or if the EF improves to continue his medical therapy. I also did tell her that in all ICD trials benefit is seen in those patients that have a survival of at least 18 months to 2 years. She tells me that her cancer is in remission and her oncologist is in [place]. It is not possible to get hold of the oncologist over the weekend. I also discussed at length with the patient's daughter. What we have mutually decided is to go ahead with a lifevest and then as an outpatient she can have a discussion with her tube machine operator helper Dr. Encarnacion and her oncologist about prognosis of her stage IV cancer and whether or not she'll be a candidate for further primary prevention of sudden cardiac . Ischemic cardiomyopathy, however the patient is euvolemic therefore will avoid Lasix. hypotension with dizziness, NO BB or MARIAELENA inhibitors. Hyperlipidemia, pravastatin. Hypertension, carvedilol dced and started on low dose metoprolol. History of renal cell carcinoma. Thank you for your consultation. Please call me if you have any questions. Anton Potts MD, FACP, FACC, FSCAI, FHRS, CCDS Interventional Cardiology Cardiac Electrophysiology Vascular Medicine and Endovascular Interventions Velma POTTS MD Apr 04, 2018 9:17 am
[2018-04-04] MEDS: HYDROcodone/APAP 10 MG/325 MG (LORTAB) TAB PO PRN (10:45)
[2018-04-04 11:30] VITALS: BP 100/66
--- NOTE | 2018-04-04 12:00 | NUR ---
Pt's bandage winding machine operator office, Dr. Keith, was called & notified that pt has a Life Vest on, as of yesterday. Pt signed Authorization for release for protected health information to fax requested med records to office. Pt's office appt was moved up, see Discharge sheet.
--- NOTE | 2018-04-04 15:11 | Therapy Team Discharge Summary ---
Therapy Discharge Summary Discharge Recommendations Date of Discharge Therapy D/C Recommendations: Occupational Therapy Home Care Physical Therapy Patient came to rehab with left hip fx; post THR. Upon evaluation patient performed bed mobility with min assist, supine <-> sit with mod assist, sit <-> stand with min/CGA, and transfers with min/CGA, car transfer min/CGA, ambulated 50' with a rolling walker with CGA (including 50' with at least 2 turns of 90 degrees and 10' over an uneven surface), and went up and down 1 step using a rolling walker with min/CGA. Patient has been performing bed mobility and transfer training, balance and endurance training, functional strengthening, stair training, gait training, and education. Patient has made good progress and has met all of her residential goals. Now, patient performs bed mobility and transfers with mod I, car transfer mod I, ambulates 175' with a rolling walker with mod I (including 50' with at least 2 turns of 90 degrees and 10' over an uneven surface), is mod I with wheelchair mobility and can go up and down 4 steps using 2 handrails with SBA. Patient is being discharged from this facility today and will be discharged from PT at this time. Occupational Therapy Decreased Safety Aware, Impaired Coordination, Impaired Self-Care Skills PT Fpc Goals Quill Cleaner Goals PT Quill Cleaner Goals Time Frame: Apr 06, 2018 Transfers (B,C,W/C) (FIM): 6 Roll Left to Right (QC): 6 Sit to Lying (QC): 6 Lying-Sitting on Side/Bed(QC): 6 Sit to Stand (QC): 6 Chair/[id number] Xfer(QC): 6 Car Transfer (QC): 6 Does the Patient Walk: Yes Gait (FIM): 6 Walk 10 feet (QC): 6 Walk 10ft-Uneven Surface(QC): 6 Walk 50ft with 2 Turns (QC): 6 Walk 150 ft (QC): 6 Gait Assistive Device: FWW Does the Pt use WC or Scooter?: No Stairs (FIM): 5 (household) # of Steps: 4 1 Step (curb) (QC): 6 4 Steps (QC): 6 12 Steps (QC): 88 Picking up an Object (QC): 88 OT Fpc Goals Fpc Goals Time Frame: Apr 19, 2018 Eating (FIM): 7 (met) Eating (QC): 6 (met) Oral Hygiene (QC): 6 (met) Grooming(FIM): 7 (met) Bathing(FIM): 6 (met) Bathing Location: L Arm, R Arm, L Upper Leg, R Upper Leg, L Lower Leg ( including foot), R Lower Leg (including foot), Chest, Abdomen, Buttocks, Perineal Area Shower/Bathe Self (QC): 6 (met) Upper Body Dressing(FIM): 7 (not met) Upper Body Dressing (QC): 6 (met) Lower Body Dressing(FIM): 6 (met) Lower Body Dressing (QC): 6 (met) On/Off Footwear (QC): 6 (met) Toileting(FIM): 6 (met) Toileting Hygiene (QC): 6 (met) Transfers (B,C,W/C) (FIM): 6 (et) Toilet/Commode Transfer(FIM): 6 (met) Toilet/Commode Transfer (QC): 6 (met) Tub Transfer(FIM): 6 (met) Shower Transfer(FIM): 6 (met) Additional Goals: 1-Demonstrate ADL Tasks, 2-Verbalize Understanding, 3- ImproveStrength/Gay 1=Demonstrate adherence to instructed precautions during ADL tasks. 2=Patient will verbalize/demonstrate understanding of assistive devices/ modifications for ADL. 3=Patient will improve strength/tolerance for activity to enable patient to perform ADL's. FRANCIS CHACON PT Apr 04, 2018 15:11
== END 2018-04-04 18:25 | disposition home or self-care (01) | DRG 560 ==
PROVIDERS: ADMIT Internal Medicine; ATTEND Internal Medicine
DX: S72.002D Fracture of unspecified part of neck of left femur, subsequent encounter for closed fracture with routine healing (principal); C79.51 Secondary malignant neoplasm of bone; C78.01 Secondary malignant neoplasm of right lung; G89.3 Neoplasm related pain (acute) (chronic); E11.59 Type 2 diabetes mellitus with other circulatory complications; I25.10 Atherosclerotic heart disease of native coronary artery without angina pectoris; E11.649 Type 2 diabetes mellitus with hypoglycemia without coma; I10 Essential (primary) hypertension; I25.5 Ischemic cardiomyopathy; I95.89 Other hypotension; K21.9 Gastro-esophageal reflux disease without esophagitis; M19.90 Unspecified osteoarthritis, unspecified site; K59.03 Drug induced constipation; R60.0 Localized edema; E78.5 Hyperlipidemia, unspecified; D64.9 Anemia, unspecified; K25.9 Gastric ulcer, unspecified as acute or chronic, without hemorrhage or perforation; I25.2 Old myocardial infarction; Z85.528 Personal history of other malignant neoplasm of kidney; Z79.4 Long term (current) use of insulin; Z87.891 Personal history of nicotine dependence; Z95.5 Presence of coronary angioplasty implant and graft; L89.151 Pressure ulcer of sacral region, stage 1; M70.22 Olecranon bursitis, left elbow; J44.9 Chronic obstructive pulmonary disease, unspecified
CPT/HCPCS: 36415; 74018; 80053; 82962; 85025; 93306; 94640; 94664; 94760